=== PATIENT | male | born 1965 | race African-American/Black ===

== ENCOUNTER 2016-08-04 08:26 | Inpatient (IN) | payer OTHER ==
[2016-08-04 10:14] VITALS: BMI 29.0
--- NOTE | 2016-08-04 10:30 | HP ---
CIWA Score - CIWA Score Nausea/Vomitin Muscle Tremors: 3 Anxiety: 3 Agitation: 2 Paroxysmal Sweats: 1-Minimal Palms Moist Orientation: 0-Oriented Tacttile Disturbances: 2-Mild Itch/Numbness/Burn Auditory Disturbances: 2-Mild Harshness/Frighten Visual Disturbances: 2-Mild Sensitivity Headache: 2-Mild CIWA-Ar Total Score: 20 Admission ROS BHS - HPI Chief Complaint: i need help to stop drinking alcohol,cocaine and marijuana Allergies/Adverse Reactions: Allergies Allergy/AdvReac Type Severity Reaction Status Date / Time pork derived (porcine) Allergy Unknown Verified 08/04/16 10:23 No Known Drug Allergies Allergy Verified 08/04/16 10:23 History of Present Illness: this 51 years old male with alcohol,cocaine and marijuana,withdrawal symptom, last detox 06/03/16 to 06/07/16 [facility] syncope alcohol related hypertension non compliance bipolar disorder cardiomyopathy no significant period of sobriety Exam Limitations: No Limitations - Ebola screening Have you traveled outside of the country in the last 21 days: No Have you been sick,other than usual withdrawal symptoms: No - Review of Systems Constitutional: Loss of Appetite, Malaise, Night Sweats, Changes in sleep, Weakness EENT: reports: Nose Congestion Cardiac: reports: No Symptoms Reported GI: reports: Nausea, Poor Appetite, Abdominal cramping : reports: No Symptoms Reported Musculoskeletal: reports: Back Pain, Muscle Pain Integumentary: reports: Dryness Neuro: reports: Headache, Tremors Endocrine: reports: No Symptoms Reported Hematology: reports: No Symptoms Reported Psychiatric: reports: other (bipolar disorder) Patient History - Patient Medical History Hx Anemia: No Hx Asthma: No Hx Chronic Obstructive Pulmonary Disease (COPD): No Hx Cancer: No Hx Cardiac Disorders: No Hx Congestive Heart Failure: No Hx Hypertension: Yes (non compliance) Hx Hypercholesterolemia: No Hx Pacemaker: No HX Cerebrovascular Accident: No Hx Seizures: No Hx Dementia: No Hx Diabetes: No Hx Gastrointestinal Disorders: No Hx Liver Disease: No Hx Genitourinary Disorders: No Hx Sexually Transmitted Disorders: No Hx Renal Disease (ESRD): No Hx Thyroid Disease: No Hx Human Immunodeficiency Virus (HIV): No (negative 05/22 negative) Hx Hepatitis C: No Hx Depression: Yes (PTSD) Hx Suicide Attempt: Yes (2005 DRANK AMMONIA CHLORIDE) Hx Bipolar Disorder: Yes (on med; zoloft 100 mg; seroquel 600 mg HS) Hx Schizophrenia: No Other Medical History: no suicidal,no homicidal - Patient Surgical History Past Surgical History: No Hx Neurologic Surgery: No Hx Cataract Extraction: No Hx Cardiac Surgery: No Hx Lung Surgery: No Hx Breast Surgery: No Hx Breast Biopsy: No Hx Abdominal Surgery: No Hx Appendectomy: No Hx Cholecystectomy: No Hx Genitourinary Surgery: No Hx Section: No Hx Orthopedic Surgery: No Anesthesia Reaction: No - PPD History Previous Implant?: Yes Documented Results: Positive w/proof PPD to be Administered?: No - Smoking Cessation Smoking history: Current every day smoker Have you smoked in the past 12 months: No Aproximately how many cigarettes per day: 5 If you are a former smoker, when did you quit?: 07/22/13 Cigars Per Day: 0 Hx Chewing Tobacco Use: No Initiated information on smoking cessation: Yes 'Breaking Loose' booklet given: 08/04/16 - Substance & Tx. History Hx Alcohol Use: Yes Hx Substance Use: Yes Substance Use Type: Alcohol, Cocaine, Marijuana Hx Substance Use Treatment: Yes (06/03/16 to 06/07/16) - Substances Abused Alcohol Route: Oral Frequency: Daily Amount used: 1 AND 1/2 PINTS COGNAC Age of first use: 10 Date of Last Use: 08/04/16 Crack Route: Smoking Frequency: 3-6 times per week Amount used: $100 Age of first use: 43 Date of Last Use: 08/04/16 Marijuana/Hashish Route: Smoking Frequency: 3-6 times per week Amount used: 1 JOINT Age of first use: 17 Date of Last Use: 08/04/16 Family Disease History - Family Disease History Family Disease History: Diabetes: Mother (alcohol,HTN), Heart Disease: Mother, Sister (DRUGS,HTN), Other: Father (ALCOHOL,CANNABIS,), Mother, Sister Admission Physical Exam S - Vital Signs Vital Signs: Vital Signs - 24 hr 08/04/16 10:09 Temperature 96.4 F L Pulse Rate 79 Respiratory 18 Rate Blood Pressure 158/105 - Physical General Appearance: Yes: Moderate Distress, Tremorous, Irritable, Sweating, Anxious HEENTM: Yes: Nasal Congestion Respiratory: Yes: Lungs Clear Neck: Yes: Within Normal Limits Breast: Yes: Within Normal Limits Cardiology: Yes: Within Normal Limits, Regular Rhythm, Regular Rate, S1, S2 Abdominal: Yes: Within Normal Limits, Normal Bowel Sounds, Non Tender, Flat, Soft Genitourinary: Yes: Within Normal Limits Back: Yes: Muscle Spasm Extremities: Yes: Tremors Neurological: Yes: micro computer specialist II-XII NML intact, Fully Oriented, Alert, Motor Strength 5/5 Integumentary: Yes: Dry Lymphatic: Yes: Within Normal Limits - Diagnostic (1) Alcohol dependence with uncomplicated withdrawal Current Visit: Yes Status: Acute (2) Cannabis dependence Current Visit: No Status: Chronic (3) Cocaine dependence Current Visit: No Status: Chronic (4) Essential hypertension Current Visit: No Status: Chronic (5) Nicotine dependence Current Visit: No Status: Chronic Qualifiers: Nicotine product type: cigarettes Substance use status: uncomplicated Qualified Code(s): F17.210 - Nicotine dependence, cigarettes, uncomplicated (6) Schizoaffective disorder Current Visit: No Status: Chronic (7) Cardiomyopathy Current Visit: Yes Status: Acute (8) Positive PPD Current Visit: Yes Status: Acute Cleared for Admission [facility] - Detox or Rehab [facility] Level of Care: Medically Managed Detox Regimen/Protocol: Librium [facility] Breath Alcohol Content Breath Alcohol Content: 0.050 Urine Drug Screen - Results Drug Screen Negative: No Urine Drug Screen Results: THC-Marijuana, MELISA-Cocaine
[2016-08-04] MEDS ORDERED: MAGNESIUM HYDROX 2400MG/30ML ORAL SUSPENSION 30 ML CUP PO PRN (10:50)
[2016-08-04] MEDS ORDERED: MAGNESIUM CITRATE 300 ML BOTTLE PO PRN (10:50)
[2016-08-04] MEDS ORDERED: MAG HYDROX/AL HYDROX/SIMETH 30 ML UNIT-DOSE CUP PO PRN (10:50)
[2016-08-04] MEDS ORDERED: IBUPROFEN 400 MG TABLET (FP) PO PRN (10:50)
[2016-08-04] MEDS ORDERED: diphenhydrAMINE HCL 50 MG CAPSULE PO PRN (10:50)
[2016-08-04] MEDS ORDERED: chlordiazePOXIDE HCL 25 MG CAPSULE PO PRN (10:50)
[2016-08-04] MEDS ORDERED: hydrOXYzine PAMOATE 50 MG CAPSULE (FP) PO PRN (10:50)
[2016-08-04] MEDS ORDERED: guaiFENesin/D-METHORPHAN HB 10 ML UNIT-DOSE CUPS PO PRN (10:50)
[2016-08-04] MEDS ORDERED: ACETAMINOPHEN 325 MG TABLET (FP) PO PRN (10:50)
[2016-08-04] MEDS ORDERED: MENTHOL/PHENOL 1 EACH UD MM PRN (10:50)
[2016-08-04] MEDS ORDERED: LOPERAMIDE HCL 2 MG CAPSULE PO PRN (10:50)
[2016-08-04] MEDS ORDERED: P-EPHED 60MG/TRIPROLIDI 2.5MG TABLET PO PRN (10:50)
[2016-08-04] MEDS ORDERED: cloNIDine HCL 0.1 MG TABLET PO ONE (11:05)
[2016-08-04] MEDS ORDERED: chlordiazePOXIDE HCL 25 MG CAPSULE PO ONE (11:10)
[2016-08-04] MEDS: ASPIRIN 81 MG CHEWABLE TABLETS PO SCH (13:06)
[2016-08-04] MEDS: LISINOPRIL 20 MG TABLET (FP) PO SCH (13:07)
--- NOTE | 2016-08-04 13:42 | CONSULT ---
[facility] Psychiatric Consult - Data Date of interview: 08/04/16 Admission source: [facility] Identifying data: This is 51 years old male with psychiatric hospitalization hisatory, history of Schizoaffective disorder intoxicated with : Alcohol, Cocaine, Cannabis and Nicotine Substance Abuse History: - Smoking Cessation. Smoking history: Current every day smoker. Have you smoked in the past 12 months: No. Aproximately how many cigarettes per day: 5. If you are a former smoker, when did you quit?: . Cigars Per Day: 0. Hx Chewing Tobacco Use: No. Initiated information on smoking cessation: Yes. 'Breaking Loose' booklet given: 08/04/16. - Substance & Tx. History. Hx Alcohol Use: Yes. Hx Substance Use: Yes. Substance Use Type : Alcohol, Cocaine, Marijuana. Hx Substance Use Treatment: Yes (06/03/16 to 08/22). - Substances Abused. Alcohol. Route: Oral. Frequency: Daily. Amount used: 1 AND 1/2 PINTS COGNAC. Age of first use: 10. Date of Last Use: . Crack. Route: Smoking. Frequency: 3-6 times per week. Amount used : $100. Age of first use: 43. Date of Last Use: 08/04/16. Marijuana/ Hashish. Route: Smoking. Frequency: 3-6 times per week. Amount used: 1 JOINT. Age of first use: 17. Date of Last Use: 08/04/16 Medical History: Cardiomyopathy, HTN, Chest pain history Psychiatric History: Patient reports to carry Schizoaffective disorder, Bipolar disorder, PTSD, reports most recent psychiatric admission on about 2-3 years ago at [facility]. Patient reports taking prior to admission: Seroquel 300mg po qhs Physical/Sexual Abuse/Trauma History: Denies Additional Comment: Seroquel 300mg po qhs Mental Status Exam - Mental Status Exam Alert and Oriented to: Person Cognitive Function: Fair Patient Appearance: Well Groomed Mood: Suspicious Affect: Constricted Patient Behavior: Cooperative Speech Pattern: Appropriate Voice Loudness: Mildly Loud Thought Process: Circumstantial Thought Disorder: Being Controlled Hallucinations: Denies Suicidal Ideation: Denies Homicidal Ideation: Denies Insight/Judgement: Fair Sleep: Difficulty falling asleep Appetite: Weight gain Muscle strength/Tone: Normal Gait/Station: Normal Additional Comments: Seroquel 300mg po qhs Psychiatric Findings - Problem List ([place] 1, 2,3) (1) Alcohol dependence with uncomplicated withdrawal Current Visit: Yes Status: Acute (2) Alcohol dependence with withdrawal Current Visit: No Status: Chronic Qualifiers: Complication of substance-induced condition: uncomplicated Qualified Code(s): F10.230 - Alcohol dependence with withdrawal, uncomplicated (3) Bipolar disorder Current Visit: No Status: Chronic (4) Cannabis dependence Current Visit: No Status: Chronic (5) Cocaine dependence Current Visit: No Status: Chronic (6) Nicotine dependence Current Visit: No Status: Chronic Qualifiers: Nicotine product type: cigarettes Substance use status: uncomplicated Qualified Code(s): F17.210 - Nicotine dependence, cigarettes, uncomplicated (7) Schizoaffective disorder Current Visit: No Status: Chronic (8) ptsd Current Visit: No Status: Chronic - Initial Treatment Plan Initial Treatment Plan: Seroquel 300mg po qhs
[2016-08-04] MEDS: chlordiazePOXIDE HCL 25 MG CAPSULE PO SCH ×2 (17:29→22:16)
[2016-08-04] MEDS: QUEtiapine FUMARATE 300 MG TABLET PO SCH (22:16)
[2016-08-04] MEDS: THIAMINE HCL 100 MG TABLET (FP) PO SCH (22:16)
[2016-08-04 23:09] LABS: URINE APPEARANCE CLEAR; URINE BILIRUBIN NEGATIVE (NEGATIVE); URINE BLOOD NEGATIVE (NEGATIVE); URINE COLOR LTYELLOW; URINE GLUCOSE (UA) NEGATIVE (NEGATIVE); URINE KETONE NEGATIVE (NEGATIVE); URINE LEUK ESTERASE NEGATIVE (NEGATIVE); URINE NITRITE NEGATIVE (NEGATIVE); URINE PROTEIN NEGATIVE (NEGATIVE); URINE UROBILINOGEN NEGATIVE E.U./dl (0.2-1.0)
[2016-08-05] MEDS: chlordiazePOXIDE HCL 25 MG CAPSULE PO SCH ×4 (05:43→22:01)
--- NOTE | 2016-08-05 09:42 | PN ---
[facility] CIWA - CIWA Score Nausea/Vomitin-No Nausea/No Vomiting Muscle Tremors: 4-Moderate,w/Arms Extend Anxiety: 4-Mod. Anxious/Guarded Agitation: 3 Paroxysmal Sweats: 3 Orientation: 0-Oriented Tacttile Disturbances: 0-None Auditory Disturbances: 0-None Visual Disturbances: 0-None Headache: 0-None Present CIWA-Ar Total Score: 14 BHS Progress Note (SOAP) Subjective: ANXIETY,TREMORS,SWEATING,INTERRUPTED SLEEP,RESTLESS. Objective: 08/05/16 09:42 Vital Signs - 8 hr 08/05/16 08/05/16 03:24 06:13 Temperature 98.2 F Pulse Rate 59 L Respiratory 18 18 Rate Blood Pressure 148/97 Laboratory Last Values Urine Color Ltyellow 08/04/16 14:00 Urine Appearance Clear 08/04/16 14:00 Urine pH 6.0 (5.0-8.0) 08/04/16 14:00 Ur Specific [place] 1.016 (1.001-1.035) 08/04/16 14:00 Urine Protein Negative (NEGATIVE) 08/04/16 14:00 Urine Glucose (UA) Negative (NEGATIVE) 08/04/16 14:00 Urine Ketones Negative (NEGATIVE) 08/04/16 14:00 Urine Blood Negative (NEGATIVE) 08/04/16 14:00 Urine Nitrite Negative (NEGATIVE) 08/04/16 14:00 Urine Bilirubin Negative (NEGATIVE) 08/04/16 14:00 Urine Urobilinogen Negative E.U./dl (0.2-1.0) 08/04/16 14:00 Ur Leukocyte Esterase Negative (NEGATIVE) 08/04/16 14:00 LABS NOTED Assessment: 08/05/16 09:42 WITHDRAWAL SX. Plan: CONTINUE DETOX
[2016-08-05] MEDS: ASPIRIN 81 MG CHEWABLE TABLETS PO SCH (10:09)
[2016-08-05] MEDS: PRENATAL VITAMINS W/ FOLIC ACID TABLET (FP) PO SCH (10:09)
[2016-08-05] MEDS: LISINOPRIL 20 MG TABLET (FP) PO SCH (10:09)
[2016-08-05 10:31] LABS: HIV 1 & 2 AB NEGATIVE; HIV 1 AGp24 NEGATIVE
[2016-08-05 10:58] LABS: MCHC 32.4 g/dl (32.0-35.9); MEAN CELL VOLUME 89.4 fl (80-96); MEAN PLT VOLUME 10.5 fl (7.5-11.1); PLATELET COUNT 145 K/MM3 (134-434); RDW 13.4 % (11.9-15.9); WHITE BLOOD COUNT 4.2 K/mm3 (4.0-10.0)
[2016-08-05 11:30] LABS: ALBUMIN 4.3 g/dl (3.4-5.0); ALK PHOS 63 U/L (45-117); ANION GAP 12 (8-16); BILIRUBIN,TOTAL 0.4 mg/dL (0.2-1.0); CALCIUM 9.4 mg/dL (8.5-10.1); CO2 25 mmol/L (21-32); GLUCOSE,RANDOM 88 mg/dL (74-106); SGOT/AST 17 U/L (15-37); SGPT/ALT 26 U/L (12-78); TOT PROT 7.9 g/dl (6.4-8.2)
[2016-08-05] MEDS: ARTIFICIAL TEARS (POLYVINYL ALCOHOL 1.4%) OPTH DROPS OU SCH ×2 (13:21→22:00)
--- NOTE | 2016-08-05 19:17 | PN ---
BHS Progress Note Note: K+ 3.4 POTASSIUM 20 MEQ SOLUTION SUPPLEMENT BID REPEAT ELECTROLYTES 08/07/16 CONTINUE DETOX
[2016-08-05] MEDS: QUEtiapine FUMARATE 300 MG TABLET PO SCH (22:01)
[2016-08-05] MEDS: THIAMINE HCL 100 MG TABLET (FP) PO SCH (22:01)
[2016-08-05] MEDS: POTASSIUM CHLORIDE 40 MEQ/30 ML UNIT DOSE CUP PO SCH (22:51)
[2016-08-06] MEDS: chlordiazePOXIDE HCL 25 MG CAPSULE PO SCH ×2 (05:35→10:15)
[2016-08-06] MEDS: ASPIRIN 81 MG CHEWABLE TABLETS PO SCH (10:15)
[2016-08-06] MEDS: ARTIFICIAL TEARS (POLYVINYL ALCOHOL 1.4%) OPTH DROPS OU SCH ×2 (10:15→22:07)
[2016-08-06] MEDS: LISINOPRIL 20 MG TABLET (FP) PO SCH (10:15)
[2016-08-06] MEDS: PRENATAL VITAMINS W/ FOLIC ACID TABLET (FP) PO SCH (10:15)
[2016-08-06] MEDS: POTASSIUM CHLORIDE 40 MEQ/30 ML UNIT DOSE CUP PO SCH (10:16)
--- NOTE | 2016-08-06 11:40 | PN ---
[facility] CIWA - CIWA Score Nausea/Vomitin-No Nausea/No Vomiting Muscle Tremors: 3 Anxiety: 4-Mod. Anxious/Guarded Agitation: 4-Moderately Restless Paroxysmal Sweats: 3 Orientation: 0-Oriented Tacttile Disturbances: 0-None Auditory Disturbances: 0-None Visual Disturbances: 0-None Headache: 0-None Present CIWA-Ar Total Score: 14 BHS Progress Note (SOAP) Subjective: ANXIETY,TREMORS,SWEATING,INTERRUPTED SLEEP,RESTLESS. Objective: 08/06/16 11:39 Vital Signs - 8 hr 08/06/16 08/06/16 06:02 09:47 Temperature 98.3 F 98.8 F Pulse Rate 66 65 Respiratory 18 18 Rate Blood Pressure 142/92 148/92 Laboratory Last Values WBC 4.2 K/mm3 (4.0-10.0) 08/05/16 06:00 RBC 5.42 M/mm3 (4.00-5.60) 08/05/16 06:00 Hgb 15.7 GM/dL (11.7-16.9) D 08/05/16 06:00 Hct 48.4 % (35.4-49) 08/05/16 06:00 MCV 89.4 fl (80-96) 08/05/16 06:00 MCHC 32.4 g/dl (32.0-35.9) 08/05/16 06:00 RDW 13.4 % (11.9-15.9) 08/05/16 06:00 Plt Count 145 K/MM3 (134-434) 08/05/16 06:00 MPV 10.5 fl (7.5-11.1) D 08/05/16 06:00 Sodium 143 mmol/L (136-145) 08/05/16 06:00 Potassium 3.4 mmol/L (3.5-5.1) L 08/05/16 06:00 Chloride 106 mmol/L (98-107) 08/05/16 06:00 Carbon Dioxide 25 mmol/L (21-32) 08/05/16 06:00 Anion Gap 12 (8-16) 08/05/16 06:00 BUN 8 mg/dL (7-18) D 08/05/16 06:00 Creatinine 1.0 mg/dL (0.7-1.3) 08/05/16 06:00 Creat Clearance w eGFR > 60 (>60) 08/05/16 06:00 Random Glucose 88 mg/dL (74-106) 08/05/16 06:00 Calcium 9.4 mg/dL (8.5-10.1) 08/05/16 06:00 Total Bilirubin 0.4 mg/dL (0.2-1.0) D 08/05/16 06:00 AST 17 U/L (15-37) 08/05/16 06:00 ALT 26 U/L (12-78) 08/05/16 06:00 Alkaline Phosphatase 63 U/L (45-117) D 08/05/16 06:00 Total Protein 7.9 g/dl (6.4-8.2) D 08/05/16 06:00 Albumin 4.3 g/dl (3.4-5.0) D 08/05/16 06:00 Urine Color Ltyellow 08/04/16 14:00 Urine Appearance Clear 08/04/16 14:00 Urine pH 6.0 (5.0-8.0) 08/04/16 14:00 Ur Specific [place] 1.016 (1.001-1.035) 08/04/16 14:00 Urine Protein Negative (NEGATIVE) 08/04/16 14:00 Urine Glucose (UA) Negative (NEGATIVE) 08/04/16 14:00 Urine Ketones Negative (NEGATIVE) 08/04/16 14:00 Urine Blood Negative (NEGATIVE) 08/04/16 14:00 Urine Nitrite Negative (NEGATIVE) 08/04/16 14:00 Urine Bilirubin Negative (NEGATIVE) 08/04/16 14:00 Urine Urobilinogen Negative E.U./dl (0.2-1.0) 08/04/16 14:00 Ur Leukocyte Esterase Negative (NEGATIVE) 08/04/16 14:00 RPR Titer Nonreactive (NONREACTIVE) 08/05/16 06:00 HIV 1&2 Antibody Screen Negative 08/04/16 10:40 HIV P24 Antigen Negative 08/04/16 10:40 LABS NOTED Assessment: 08/06/16 11:39 WITHDRAWAL SX. Plan: CONTINUE DETOX
[2016-08-06] MEDS: NEO/POLYMYX B SULF/DEXAMETH OPHTHALMIC OINTMENT 3.5 GM OD SCH ×2 (14:28→22:06)
[2016-08-06] MEDS: chlordiazePOXIDE 5 MG CAPSULE PO SCH ×2 (17:45→22:08)
[2016-08-06] MEDS ORDERED: QUEtiapine FUMARATE 100 MG TABLET (FP) ONE (20:50)
[2016-08-06] MEDS: QUEtiapine FUMARATE 300 MG TABLET PO SCH (22:08)
[2016-08-06] MEDS: THIAMINE HCL 100 MG TABLET (FP) PO SCH (22:08)
[2016-08-06] MEDS: POTASSIUM CHLORIDE TABS 20 MEQ TABLET.ER (FP) PO SCH (22:49)
[2016-08-07] MEDS: chlordiazePOXIDE 5 MG CAPSULE PO SCH ×2 (05:22→10:11)
[2016-08-07] MEDS: ASPIRIN 81 MG CHEWABLE TABLETS PO SCH (10:12)
[2016-08-07] MEDS: PRENATAL VITAMINS W/ FOLIC ACID TABLET (FP) PO SCH (10:12)
[2016-08-07] MEDS: POTASSIUM CHLORIDE TABS 20 MEQ TABLET.ER (FP) PO SCH ×2 (10:12→22:07)
[2016-08-07] MEDS: LISINOPRIL 20 MG TABLET (FP) PO SCH (10:12)
[2016-08-07] MEDS: ARTIFICIAL TEARS (POLYVINYL ALCOHOL 1.4%) OPTH DROPS OU SCH ×2 (10:12→22:07)
[2016-08-07] MEDS: NEO/POLYMYX B SULF/DEXAMETH OPHTHALMIC OINTMENT 3.5 GM OD SCH ×2 (10:13→22:08)
--- NOTE | 2016-08-07 13:28 | PN ---
BHS Progress Note (SOAP) Subjective: Diarrhea, Sweating, Body Aches, Interrupted Sleep. Objective: 08/07/16 13:26 Vital Signs Temperature 98.1 F 08/07/16 13:04 Pulse Rate 75 08/07/16 13:04 Respiratory Rate 18 08/07/16 13:04 Blood Pressure 146/89 08/07/16 13:04 O2 Sat by Pulse Oximetry (%) Laboratory Last Values WBC 4.2 K/mm3 (4.0-10.0) 08/05/16 06:00 RBC 5.42 M/mm3 (4.00-5.60) 08/05/16 06:00 Hgb 15.7 GM/dL (11.7-16.9) D 08/05/16 06:00 Hct 48.4 % (35.4-49) 08/05/16 06:00 MCV 89.4 fl (80-96) 08/05/16 06:00 MCHC 32.4 g/dl (32.0-35.9) 08/05/16 06:00 RDW 13.4 % (11.9-15.9) 08/05/16 06:00 Plt Count 145 K/MM3 (134-434) 08/05/16 06:00 MPV 10.5 fl (7.5-11.1) D 08/05/16 06:00 Sodium 143 mmol/L (136-145) 08/05/16 06:00 Potassium 3.4 mmol/L (3.5-5.1) L 08/05/16 06:00 Chloride 106 mmol/L (98-107) 08/05/16 06:00 Carbon Dioxide 25 mmol/L (21-32) 08/05/16 06:00 Anion Gap 12 (8-16) 08/05/16 06:00 BUN 8 mg/dL (7-18) D 08/05/16 06:00 Creatinine 1.0 mg/dL (0.7-1.3) 08/05/16 06:00 Creat Clearance w eGFR > 60 (>60) 08/05/16 06:00 Random Glucose 88 mg/dL (74-106) 08/05/16 06:00 Calcium 9.4 mg/dL (8.5-10.1) 08/05/16 06:00 Total Bilirubin 0.4 mg/dL (0.2-1.0) D 08/05/16 06:00 AST 17 U/L (15-37) 08/05/16 06:00 ALT 26 U/L (12-78) 08/05/16 06:00 Alkaline Phosphatase 63 U/L (45-117) D 08/05/16 06:00 Total Protein 7.9 g/dl (6.4-8.2) D 08/05/16 06:00 Albumin 4.3 g/dl (3.4-5.0) D 08/05/16 06:00 Urine Color Ltyellow 08/04/16 14:00 Urine Appearance Clear 08/04/16 14:00 Urine pH 6.0 (5.0-8.0) 08/04/16 14:00 Ur Specific [place] 1.016 (1.001-1.035) 08/04/16 14:00 Urine Protein Negative (NEGATIVE) 08/04/16 14:00 Urine Glucose (UA) Negative (NEGATIVE) 08/04/16 14:00 Urine Ketones Negative (NEGATIVE) 08/04/16 14:00 Urine Blood Negative (NEGATIVE) 08/04/16 14:00 Urine Nitrite Negative (NEGATIVE) 08/04/16 14:00 Urine Bilirubin Negative (NEGATIVE) 08/04/16 14:00 Urine Urobilinogen Negative E.U./dl (0.2-1.0) 08/04/16 14:00 Ur Leukocyte Esterase Negative (NEGATIVE) 08/04/16 14:00 RPR Titer Nonreactive (NONREACTIVE) 08/05/16 06:00 HIV 1&2 Antibody Screen Negative 08/04/16 10:40 HIV P24 Antigen Negative 08/04/16 10:40 LABS NOTED. Assessment: 08/07/16 13:26 WITHDRAWAL SYMPTOMS. Plan: CONTINUE DETOX. REPEAT K LEVEL. RECOMMENDED PRN IMMODIUM FOR DIARRHEA.
[2016-08-07] MEDS: chlordiazePOXIDE HCL 10 MG CAPSULE PO SCH ×2 (17:36→22:07)
[2016-08-07] MEDS: THIAMINE HCL 100 MG TABLET (FP) PO SCH (22:07)
[2016-08-07] MEDS: QUEtiapine FUMARATE 300 MG TABLET PO SCH (22:07)
[2016-08-08] MEDS: chlordiazePOXIDE HCL 10 MG CAPSULE PO SCH ×2 (05:39→10:10)
[2016-08-08] MEDS: POTASSIUM CHLORIDE 40 MEQ/30 ML UNIT DOSE CUP PO SCH (09:43)
[2016-08-08] MEDS ORDERED: POTASSIUM CHLORIDE TABS 20 MEQ TABLET.ER (FP) PO SCH (10:02)
[2016-08-08] MEDS: ARTIFICIAL TEARS (POLYVINYL ALCOHOL 1.4%) OPTH DROPS OU SCH ×2 (10:09→22:05)
[2016-08-08] MEDS: PRENATAL VITAMINS W/ FOLIC ACID TABLET (FP) PO SCH (10:09)
[2016-08-08] MEDS: NEO/POLYMYX B SULF/DEXAMETH OPHTHALMIC OINTMENT 3.5 GM OD SCH ×2 (10:09→22:06)
[2016-08-08] MEDS: ASPIRIN 81 MG CHEWABLE TABLETS PO SCH (10:10)
[2016-08-08] MEDS: LISINOPRIL 20 MG TABLET (FP) PO SCH (10:10)
--- NOTE | 2016-08-08 10:27 | PN ---
BHS Progress Note (SOAP) Subjective: SWEATING,INTERRUPTED SLEEP Objective: 08/08/16 10:25 Vital Signs - 8 hr 08/08/16 08/08/16 08/08/16 03:30 06:11 10:15 Temperature 96.7 F L 96.7 F L Pulse Rate 64 75 Respiratory 20 18 16 Rate Blood Pressure 141/97 135/88 Laboratory Last Values WBC 4.2 K/mm3 (4.0-10.0) 08/05/16 06:00 RBC 5.42 M/mm3 (4.00-5.60) 08/05/16 06:00 Hgb 15.7 GM/dL (11.7-16.9) D 08/05/16 06:00 Hct 48.4 % (35.4-49) 08/05/16 06:00 MCV 89.4 fl (80-96) 08/05/16 06:00 MCHC 32.4 g/dl (32.0-35.9) 08/05/16 06:00 RDW 13.4 % (11.9-15.9) 08/05/16 06:00 Plt Count 145 K/MM3 (134-434) 08/05/16 06:00 MPV 10.5 fl (7.5-11.1) D 08/05/16 06:00 Sodium 143 mmol/L (136-145) 08/05/16 06:00 Potassium 3.4 mmol/L (3.5-5.1) L 08/05/16 06:00 Chloride 106 mmol/L (98-107) 08/05/16 06:00 Carbon Dioxide 25 mmol/L (21-32) 08/05/16 06:00 Anion Gap 12 (8-16) 08/05/16 06:00 BUN 8 mg/dL (7-18) D 08/05/16 06:00 Creatinine 1.0 mg/dL (0.7-1.3) 08/05/16 06:00 Creat Clearance w eGFR > 60 (>60) 08/05/16 06:00 Random Glucose 88 mg/dL (74-106) 08/05/16 06:00 Calcium 9.4 mg/dL (8.5-10.1) 08/05/16 06:00 Total Bilirubin 0.4 mg/dL (0.2-1.0) D 08/05/16 06:00 AST 17 U/L (15-37) 08/05/16 06:00 ALT 26 U/L (12-78) 08/05/16 06:00 Alkaline Phosphatase 63 U/L (45-117) D 08/05/16 06:00 Total Protein 7.9 g/dl (6.4-8.2) D 08/05/16 06:00 Albumin 4.3 g/dl (3.4-5.0) D 08/05/16 06:00 Urine Color Ltyellow 08/04/16 14:00 Urine Appearance Clear 08/04/16 14:00 Urine pH 6.0 (5.0-8.0) 08/04/16 14:00 Ur Specific [place] 1.016 (1.001-1.035) 08/04/16 14:00 Urine Protein Negative (NEGATIVE) 08/04/16 14:00 Urine Glucose (UA) Negative (NEGATIVE) 08/04/16 14:00 Urine Ketones Negative (NEGATIVE) 08/04/16 14:00 Urine Blood Negative (NEGATIVE) 08/04/16 14:00 Urine Nitrite Negative (NEGATIVE) 08/04/16 14:00 Urine Bilirubin Negative (NEGATIVE) 08/04/16 14:00 Urine Urobilinogen Negative E.U./dl (0.2-1.0) 08/04/16 14:00 Ur Leukocyte Esterase Negative (NEGATIVE) 08/04/16 14:00 RPR Titer Nonreactive (NONREACTIVE) 08/05/16 06:00 HIV 1&2 Antibody Screen Negative 08/04/16 10:40 HIV P24 Antigen Negative 08/04/16 10:40 LABS NOTED K 3.4,REPLACEMENT GIVEN Assessment: 08/08/16 10:26 WITHDRAWAL SX. HYPOKALEMIA Plan: CONTINUE DETOX
[2016-08-08] MEDS: POTASSIUM CHLORIDE TABS 20 MEQ TABLET.ER (FP) PO SCH ×3 (11:01→17:49)
[2016-08-08] MEDS: THIAMINE HCL 100 MG TABLET (FP) PO SCH (22:06)
[2016-08-08] MEDS: QUEtiapine FUMARATE 300 MG TABLET PO SCH (22:06)
[2016-08-08 22:55] LABS: URINE APPEARANCE CLEAR; URINE BILIRUBIN NEGATIVE (NEGATIVE); URINE BLOOD NEGATIVE (NEGATIVE); URINE COLOR STRAW; URINE GLUCOSE (UA) NEGATIVE (NEGATIVE); URINE KETONE NEGATIVE (NEGATIVE); URINE LEUK ESTERASE NEGATIVE (NEGATIVE); URINE NITRITE NEGATIVE (NEGATIVE); URINE PROTEIN NEGATIVE (NEGATIVE); URINE UROBILINOGEN NEGATIVE E.U./dl (0.2-1.0)
[2016-08-09 06:34] VITALS: BP 137/92; PULSE 68; TEMP 97.1
--- NOTE | 2016-08-09 08:08 | PN ---
S Progress Note (SOAP) Subjective: ALERT,NO COMPLAINT Objective: 08/09/16 08:07 Vital Signs Temperature 97.1 F L 08/09/16 06:33 Pulse Rate 68 08/09/16 06:33 Respiratory Rate 18 08/09/16 06:33 Blood Pressure 137/92 08/09/16 06:33 O2 Sat by Pulse Oximetry (%) Assessment: 08/09/16 08:07 DETOX COMPLETED,NO WITHDRAWAL SYMPTOM Plan: DISCHARGE TODAY,FOLLOW UP WITH AFTER CARE PROGRAM ARRANGEMENT
--- NOTE | 2016-08-09 08:11 | DS ---
[facility] Detox Discharge Summary Admission Date: 08/04/16 Discharge Date: 08/09/16 - History Present History: Alcohol Dependence, Cannabis Dependence, Cocaine Dependence Additional Comments: FOLLOW UP WITH AFTER CARE PROGRAM ARRANGEMENT AND PMD FOR MEDICAL PROBLEM Pertinent Past History: CARDIOMYOPATHY POSTIVE PPD - Physical Exam Results Vital Signs: Vital Signs Temperature 97.1 F L 08/09/16 06:33 Pulse Rate 68 08/09/16 06:33 Respiratory Rate 18 08/09/16 06:33 Blood Pressure 137/92 08/09/16 06:33 O2 Sat by Pulse Oximetry (%) Pertinent Admission Physical Exam Findings: WITHDRAWAL SYMPTOM - Treatment Hospital Course: Detox Protocol Followed, Detoxed Safely, Responded well, Discharged Condition Good Patient has Accepted a Rehab Referral to: [facility] - Medication Discharge Medications: Ambulatory Orders Aspirin [ASA -] 81 mg PO DAILY #30 tab.chew 01/15/14 Lisinopril [Prinivil] 20 mg PO DAILY #30 tablet 01/15/14 Quetiapine Fumarate [Seroquel -] 300 mg PO HS #30 tab 06/04/16 Quetiapine Fumarate [Seroquel -] 300 mg PO HS #30 tab 08/04/16 - Diagnosis (1) Alcohol dependence with uncomplicated withdrawal Status: Acute (2) Cannabis dependence Status: Chronic (3) Cocaine dependence Status: Chronic (4) Essential hypertension Status: Chronic (5) Nicotine dependence Status: Chronic Qualifiers: Nicotine product type: cigarettes Substance use status: uncomplicated Qualified Code(s): F17.210 - Nicotine dependence, cigarettes, uncomplicated (6) Schizoaffective disorder Status: Chronic (7) Cardiomyopathy Status: Acute (8) Positive PPD Status: Acute
== END 2016-08-09 06:44 | disposition home or self-care (01) | DRG 897 ==
LOC: YASAS 08:26 → Y3N 10:46
PROVIDERS: ADMIT Internal Medicine; ATTEND Internal Medicine
PROC: HZ2ZZZZ Detoxification Services for Substance Abuse Treatment (ICD-10-PCS; principal; 2016-08-04)
DX: F10.230 Alcohol dependence with withdrawal, uncomplicated (principal); F14.20 Cocaine dependence, uncomplicated; I42.9 Cardiomyopathy, unspecified; F12.20 Cannabis dependence, uncomplicated; F17.210 Nicotine dependence, cigarettes, uncomplicated; F25.9 Schizoaffective disorder, unspecified; F31.9 Bipolar disorder, unspecified; F43.10 Post-traumatic stress disorder, unspecified; I10 Essential (primary) hypertension; R76.11 Nonspecific reaction to tuberculin skin test without active tuberculosis; E87.6 Hypokalemia; Z91.5 Personal history of self-harm
CPT/HCPCS: 36415; 80051; 80053; 81003; 85027; 86593; 87389; 93005; 93010

== ENCOUNTER 2016-09-22 12:59 | Inpatient (IN) | payer OTHER ==
[2016-09-22 13:20] VITALS: BMI 29.5
--- NOTE | 2016-09-22 16:24 | HP ---
CIWA Score - CIWA Score Nausea/Vomitin Muscle Tremors: 2 Anxiety: 3 Agitation: 3 Paroxysmal Sweats: 3 Orientation: 0-Oriented Tacttile Disturbances: 2-Mild Itch/Numbness/Burn Auditory Disturbances: 0-None Visual Disturbances: 0-None Headache: 0-None Present CIWA-Ar Total Score: 15 Admission ROS BHS - HPI Chief Complaint: I dick help to stop drinking and using crack Allergies/Adverse Reactions: Allergies Allergy/AdvReac Type Severity Reaction Status Date / Time No Known Drug Allergies Allergy Verified 09/22/16 15:07 pork derived (porcine) AdvReac Severe diarrhea Verified 09/22/16 15:07 History of Present Illness: 51 y/o m pt with a h/o chronic alcoholism and crack abuse seeking detox. Exam Limitations: No Limitations - Ebola screening Have you traveled outside of the country in the last 21 days: Yes Have you had contact with anyone from an Ebola affected area: No Have you been sick,other than usual withdrawal symptoms: No Do you have a fever: No - Review of Systems Constitutional: Unintentional Wgt. Loss (10 lbs x 6 months) EENT: reports: Blurred Vision Respiratory: reports: No Symptoms reported Cardiac: reports: Other (r/o enlarged heart) GI: reports: No Symptoms Reported, Nausea : reports: No Symptoms Reported Musculoskeletal: reports: Back Pain, Joint Pain, Muscle Pain, Joint Stiffness Integumentary: reports: No Symptoms Reported Neuro: reports: Numbness, Tremors Endocrine: reports: No Symptoms Reported Hematology: reports: No Symptoms Reported Psychiatric: reports: Anxious, Depressed Other Systems: Reviewed and Negative Patient History - Patient Medical History Hx Anemia: No Hx Asthma: No Hx Chronic Obstructive Pulmonary Disease (COPD): No Hx Cancer: No Hx Cardiac Disorders: Yes Hx Congestive Heart Failure: No Hx Hypertension: Yes Hx Hypercholesterolemia: No Hx Pacemaker: No HX Cerebrovascular Accident: No Hx Seizures: No Hx Dementia: No Hx Diabetes: No Hx Gastrointestinal Disorders: No Hx Liver Disease: No Hx Genitourinary Disorders: No Hx Sexually Transmitted Disorders: No Hx Renal Disease (ESRD): No Hx Thyroid Disease: No Hx Human Immunodeficiency Virus (HIV): No (negative 05/22 negative) Hx Hepatitis C: No Hx Depression: Yes Hx Suicide Attempt: No Hx Bipolar Disorder: Yes (on med; zoloft 100 mg; seroquel 600 mg HS) Hx Schizophrenia: No - Patient Surgical History Past Surgical History: No Hx Neurologic Surgery: No Hx Cataract Extraction: No Hx Cardiac Surgery: No Hx Lung Surgery: No Hx Breast Surgery: No Hx Breast Biopsy: No Hx Abdominal Surgery: No Hx Appendectomy: No Hx Cholecystectomy: No Hx Genitourinary Surgery: No Hx Section: No Hx Orthopedic Surgery: No Anesthesia Reaction: No - PPD History Previous Implant?: Yes Documented Results: Positive w/proof Implanted On Prior R Admission?: No Date: 06/04/16 (neg cxr) Results: 0 mm PPD to be Administered?: No - Reproductive History Patient is a Female of Child Bearing Age (11 -55 yrs old): No - Smoking Cessation Smoking history: Current every day smoker Have you smoked in the past 12 months: No Aproximately how many cigarettes per day: 2 If you are a former smoker, when did you quit?: 07/22/13 Cigars Per Day: 0 Hx Chewing Tobacco Use: No Initiated information on smoking cessation: Yes 'Breaking Loose' booklet given: 09/22/16 - Substance & Tx. History Hx Alcohol Use: Yes Substance Use Type: Alcohol, Cocaine, Marijuana - Substances Abused Crack Route: Smoking Frequency: 3-6 times per week Amount used: $100-200 Age of first use: 43 Date of Last Use: 09/22/16 Alcohol-vodka/beer Route: Oral Frequency: 3-6 times per week Amount used: 1-2 pts./1-6 pk. Age of first use: 10 Date of Last Use: 09/22/16 Family Disease History - Family Disease History Family Disease History: Diabetes: Mother (alcohol,HTN), Heart Disease: Mother, Sister (DRUGS,HTN), Other: Father (ALCOHOL,CANNABIS,), Mother, Sister Admission Physical Exam BHS - Vital Signs Vital Signs: Vital Signs - 24 hr 09/22/16 13:16 Temperature 97.6 F Pulse Rate 69 Respiratory 18 Rate Blood Pressure 148/98 - Physical General Appearance: Yes: Appropriately Dressed, Anxious HEENTM: Yes: EOMI, Hearing grossly Normal, Normocephalic, Normal Voice, CELIA Respiratory: Yes: Chest Non-Tender, Lungs Clear, Normal Breath Sounds, No Respiratory Distress Neck: Yes: No masses,lesions,Nodules, Supple, Trachea in good position Breast: Yes: Within Normal Limits Cardiology: Yes: Regular Rhythm, Regular Rate, S1, S2 Abdominal: Yes: Non Tender, Flat, Soft, Increased Bowel Sounds Genitourinary: Yes: Frequency Back: Yes: Decreased Range of Motion Musculoskeletal: Yes: Back pain, Muscle Pain Extremities: Yes: Within Normal Limits Neurological: Yes: prototype machinist II-XII NML intact, Fully Oriented, Alert, Motor Strength 5/5, Normal Response Integumentary: Yes: Moist Lymphatic: Yes: Within Normal Limits - Diagnostic (1) Alcohol dependence with uncomplicated withdrawal Current Visit: Yes Status: Chronic (2) Positive PPD Current Visit: Yes Status: Chronic (3) Bipolar disorder Current Visit: Yes Status: Chronic (4) Cannabis dependence Current Visit: Yes Status: Chronic (5) Cocaine dependence Current Visit: Yes Status: Chronic (6) Essential hypertension Current Visit: Yes Status: Chronic (7) Nicotine dependence Current Visit: Yes Status: Chronic Qualifiers: Nicotine product type: cigarettes Substance use status: uncomplicated Qualified Code(s): F17.210 - Nicotine dependence, cigarettes, uncomplicated (8) Depression (emotion) Current Visit: Yes Status: Chronic Qualifiers: Depression Type: unspecified Qualified Code(s): F32.9 - Major depressive disorder, single episode, unspecified Cleared for Admission S - Detox or Rehab [facility] Level of Care: Medically Managed Detox Regimen/Protocol: Librium [facility] Breath Alcohol Content Breath Alcohol Content: 0 Urine Drug Screen - Results Drug Screen Negative: No Urine Drug Screen Results: THC-Marijuana, MELISA-Cocaine
[2016-09-22] MEDS ORDERED: P-EPHED 60MG/TRIPROLIDI 2.5MG TABLET PO PRN (16:34)
[2016-09-22] MEDS ORDERED: MAGNESIUM CITRATE 300 ML BOTTLE PO PRN (16:34)
[2016-09-22] MEDS ORDERED: ACETAMINOPHEN 325 MG TABLET (FP) PO PRN (16:34)
[2016-09-22] MEDS ORDERED: diphenhydrAMINE HCL 50 MG CAPSULE PO PRN (16:34)
[2016-09-22] MEDS ORDERED: guaiFENesin/D-METHORPHAN HB 10 ML UNIT-DOSE CUPS PO PRN (16:34)
[2016-09-22] MEDS ORDERED: MAGNESIUM HYDROX 2400MG/30ML ORAL SUSPENSION 30 ML CUP PO PRN (16:34)
[2016-09-22] MEDS ORDERED: LOPERAMIDE HCL 2 MG CAPSULE PO PRN (16:34)
[2016-09-22] MEDS ORDERED: hydrOXYzine PAMOATE 25 MG CAPSULE (FP) PO PRN (16:34)
[2016-09-22] MEDS ORDERED: NICOTINE POLACRILEX 2 MG GUM BC PRN (16:34)
[2016-09-22] MEDS ORDERED: IBUPROFEN 400 MG TABLET (FP) PO PRN (16:34)
[2016-09-22] MEDS ORDERED: MENTHOL/PHENOL 1 EACH UD MM PRN (16:34)
[2016-09-22] MEDS ORDERED: MAG HYDROX/AL HYDROX/SIMETH 30 ML UNIT-DOSE CUP PO PRN (16:34)
[2016-09-22] MEDS ORDERED: chlordiazePOXIDE HCL 25 MG CAPSULE PO PRN (16:34)
[2016-09-22] MEDS: chlordiazePOXIDE HCL 25 MG CAPSULE PO SCH ×2 (18:21→22:10)
[2016-09-22] MEDS: THIAMINE HCL 100 MG TABLET (FP) PO SCH (22:10)
[2016-09-22 23:41] LABS: URINE APPEARANCE CLEAR; URINE BILIRUBIN NEGATIVE (NEGATIVE); URINE BLOOD NEGATIVE (NEGATIVE); URINE COLOR YELLOW; URINE GLUCOSE (UA) NEGATIVE (NEGATIVE); URINE KETONE NEGATIVE (NEGATIVE); URINE LEUK ESTERASE NEGATIVE (NEGATIVE); URINE NITRITE NEGATIVE (NEGATIVE); URINE PROTEIN NEGATIVE (NEGATIVE); URINE UROBILINOGEN NEGATIVE E.U./dl (0.2-1.0)
[2016-09-23] MEDS: chlordiazePOXIDE HCL 25 MG CAPSULE PO SCH ×4 (05:39→22:24)
[2016-09-23 10:08] LABS: ALBUMIN 3.3 g/dl (3.4-5.0); ANION GAP 8 (8-16); CALCIUM 8.6 mg/dL (8.5-10.1); CO2 29 mmol/L (21-32); GLUCOSE,RANDOM 87 mg/dL (74-106)
[2016-09-23 10:13] LABS: ALK PHOS 53 U/L (45-117); BILIRUBIN,TOTAL 0.4 mg/dL (0.2-1.0); SGOT/AST 17 U/L (15-37); SGPT/ALT 24 U/L (12-78); TOT PROT 6.1 g/dl (6.4-8.2)
[2016-09-23 10:24] LABS: MCH 28.9 pg (25.7-33.7); MCHC 32.4 g/dl (32.0-35.9); MEAN CELL VOLUME 89.2 fl (80-96); MEAN PLT VOLUME 9.8 fl (7.5-11.1); PLATELET COUNT 159 K/MM3 (134-434); RDW 13.7 % (11.9-15.9); WHITE BLOOD COUNT 4.7 K/mm3 (4.0-10.0)
[2016-09-23] MEDS: PRENATAL VITAMINS W/ FOLIC ACID TABLET (FP) PO SCH (10:50)
[2016-09-23] MEDS: ASPIRIN COATED 81 MG TABLET.EC PO SCH (10:50)
[2016-09-23] MEDS: LISINOPRIL 20 MG TABLET (FP) PO SCH (10:50)
--- NOTE | 2016-09-23 11:12 | EKG ---
Test Reason : Blood Pressure : / mmHG Vent. Rate : 068 BPM Atrial Rate : 068 BPM P-R Int : 188 ms QRS Dur : 104 ms QT Int : 418 ms P-R-T Axes : 060 -13 097 degrees QTc Int : 444 ms NORMAL SINUS RHYTHM POSSIBLE LEFT ATRIAL ENLARGEMENT LEFT VENTRICULAR HYPERTROPHY T WAVE ABNORMALITY, CONSIDER LATERAL ISCHEMIA ABNORMAL ECG NO PREVIOUS ECGS AVAILABLE Confirmed by GURPREET ARAGON MD ([id number]) on 09/23/2016 11:12:20 AM Referred By: Confirmed By:GURPREET ARAGON MD
--- NOTE | 2016-09-23 13:25 | PN ---
S CIWA - CIWA Score Nausea/Vomitin Muscle Tremors: 2 Anxiety: 3 Agitation: 2 Paroxysmal Sweats: 3 Orientation: 0-Oriented Tacttile Disturbances: 2-Mild Itch/Numbness/Burn Auditory Disturbances: 0-None Visual Disturbances: 1-Very Mild Sensitivity Headache: 0-None Present CIWA-Ar Total Score: 15 BHS Progress Note (SOAP) Subjective: Sweating, Fatigue, Tremors. Objective: PT. A & O X 3, OBSERVED AMBULATING ON UNIT. 09/23/16 13:23 Vital Signs Temperature 97.6 F 09/23/16 10:27 Pulse Rate 80 09/23/16 10:27 Respiratory Rate 18 09/23/16 10:27 Blood Pressure 150/88 09/23/16 10:27 O2 Sat by Pulse Oximetry (%) Laboratory Last Values WBC 4.7 K/mm3 (4.0-10.0) 09/23/16 07:00 RBC 4.83 M/mm3 (4.00-5.60) 09/23/16 07:00 Hgb 13.9 GM/dL (11.7-16.9) D 09/23/16 07:00 Hct 43.0 % (35.4-49) 09/23/16 07:00 MCV 89.2 fl (80-96) 09/23/16 07:00 MCHC 32.4 g/dl (32.0-35.9) 09/23/16 07:00 RDW 13.7 % (11.9-15.9) 09/23/16 07:00 Plt Count 159 K/MM3 (134-434) 09/23/16 07:00 MPV 9.8 fl (7.5-11.1) 09/23/16 07:00 Sodium 141 mmol/L (136-145) 09/23/16 07:00 Potassium 3.9 mmol/L (3.5-5.1) 09/23/16 07:00 Chloride 104 mmol/L (98-107) 09/23/16 07:00 Carbon Dioxide 29 mmol/L (21-32) 09/23/16 07:00 Anion Gap 8 (8-16) 09/23/16 07:00 BUN 14 mg/dL (7-18) D 09/23/16 07:00 Creatinine 1.0 mg/dL (0.7-1.3) 09/23/16 07:00 Creat Clearance w eGFR > 60 (>60) 09/23/16 07:00 Random Glucose 87 mg/dL (74-106) 09/23/16 07:00 Calcium 8.6 mg/dL (8.5-10.1) 09/23/16 07:00 Total Bilirubin 0.4 mg/dL (0.2-1.0) 09/23/16 07:00 AST 17 U/L (15-37) 09/23/16 07:00 ALT 24 U/L (12-78) 09/23/16 07:00 Alkaline Phosphatase 53 U/L (45-117) 09/23/16 07:00 Total Protein 6.1 g/dl (6.4-8.2) L D 09/23/16 07:00 Albumin 3.3 g/dl (3.4-5.0) L D 09/23/16 07:00 Urine Color Yellow 09/22/16 23:00 Urine Appearance Clear 09/22/16 23:00 Urine pH 5.0 (5.0-8.0) D 09/22/16 23:00 Ur Specific [place] 1.023 (1.001-1.035) 09/22/16 23:00 Urine Protein Negative (NEGATIVE) 09/22/16 23:00 Urine Glucose (UA) Negative (NEGATIVE) 09/22/16 23:00 Urine Ketones Negative (NEGATIVE) 09/22/16 23:00 Urine Blood Negative (NEGATIVE) 09/22/16 23:00 Urine Nitrite Negative (NEGATIVE) 09/22/16 23:00 Urine Bilirubin Negative (NEGATIVE) 09/22/16 23:00 Urine Urobilinogen Negative E.U./dl (0.2-1.0) 09/22/16 23:00 Ur Leukocyte Esterase Negative (NEGATIVE) 09/22/16 23:00 RPR Titer Nonreactive (NONREACTIVE) 09/23/16 07:00 LABS NOTED. Assessment: 09/23/16 13:24 WITHDRAWAL SYMPTOMS. 09/23/16 13:24 Plan: CONTINUE DETOX. CONTINUE TO MONITOR BP.
--- NOTE | 2016-09-23 16:23 | CONSULT ---
[facility] Psychiatric Consult - Data Date of interview: 09/23/16 Admission source: [facility] Identifying data: This is another admission to [facility] for this 51 y/o AA male seeking detox treatment on for alcohol,cocaine and marijuana dependence.Patient is single,a father of one,homeless,unemployed and supported on [employer] benefits. Substance Abuse History: - Smoking Cessation. Smoking history: Current every day smoker. Have you smoked in the past 12 months: No. Aproximately how many cigarettes per day: 2. If you are a former smoker, when did you quit?: . Cigars Per Day: 0. Hx Chewing Tobacco Use: No. Initiated information on smoking cessation: Yes. 'Breaking Loose' booklet given: 09/22/16. - Substance & Tx. History. Hx Alcohol Use: Yes. Substance Use Type: Alcohol, Cocaine, Marijuana. - Substances Abused. Crack. Route: Smoking. Frequency: 3-6 times per week. Amount used: $100-200. Age of first use: 43. Date of Last Use : 09/22/16. Alcohol-vodka/beer. Route: Oral. Frequency: 3-6 times per week. Amount used: 1-2 pts./1-6 pk. Age of first use: 10. Date of Last Use: . Confirmed by the patient in this interview. Medical History: Hypertension and obesity. Psychiatric History: History of multiple psychiatric hospitalizations.Diagnosed with Bipolar Disorder.Hospitalized on three occasions at [facility] (psychiatric inpatient service).Mr Brasher has been referred to [facility] but,as per his own account,he has not kept his appointments for over seven months.Non compliant with medications." I don't take medications after I leave the hospital.I don't like to mix drugs with medications." Discharged from [facility] (05/2016) on seroquel 300 mg/hs.History of suicide attempt (2005) via ingestion of an household detergent (ammonia). Physical/Sexual Abuse/Trauma History: Patient denies. Additional Comment: Urine Drug Screen Results: THC-Marijuana, MELISA-Cocaine.Noted. Mental Status Exam - Mental Status Exam Alert and Oriented to: Time, Place, Person Cognitive Function: Good Patient Appearance: Disheveled Mood: Withdrawn, Hopeful, Euthymic Affect: Normal Range Patient Behavior: Fatigued, Appropriate, Cooperative Speech Pattern: Clear Voice Loudness: Normal Thought Process: Goal Oriented Thought Disorder: Not Present Hallucinations: Denies Suicidal Ideation: Denies Homicidal Ideation: Denies Insight/Judgement: Poor Sleep: Poorly, Difficulty falling asleep Appetite: Good Muscle strength/Tone: Normal Gait/Station: Normal Psychiatric Findings - Problem List ([place] 1, 2,3) (1) Alcohol dependence with uncomplicated withdrawal Current Visit: Yes Status: Acute (2) Cocaine dependence Current Visit: Yes Status: Acute (3) Nicotine dependence Current Visit: Yes Status: Acute Qualifiers: Nicotine product type: cigarettes Substance use status: uncomplicated Qualified Code(s): F17.210 - Nicotine dependence, cigarettes, uncomplicated (4) Cannabis dependence Current Visit: Yes Status: Chronic (5) Schizoaffective disorder Current Visit: Yes Status: Chronic (6) Cardiomyopathy Current Visit: No Status: Chronic (7) Substance induced mood disorder Current Visit: Yes Status: Acute (8) Essential hypertension Current Visit: Yes Status: Chronic - Initial Treatment Plan Initial Treatment Plan: Psychoeducation.Detoxification.Medication : seroquel 100 mg po hs (patient's request).Side effects/benefits discussed with the patient.He agrees with this plan.Observation.
[2016-09-23] MEDS: THIAMINE HCL 100 MG TABLET (FP) PO SCH (22:23)
[2016-09-23] MEDS: QUEtiapine FUMARATE 100 MG TABLET (FP) PO SCH (22:23)
[2016-09-24] MEDS: chlordiazePOXIDE HCL 25 MG CAPSULE PO SCH ×2 (07:44→10:35)
[2016-09-24] MEDS: PRENATAL VITAMINS W/ FOLIC ACID TABLET (FP) PO SCH (10:35)
[2016-09-24] MEDS: LISINOPRIL 20 MG TABLET (FP) PO SCH (10:35)
[2016-09-24] MEDS: ASPIRIN COATED 81 MG TABLET.EC PO SCH (10:35)
--- NOTE | 2016-09-24 12:27 | PN ---
[facility] CIWA - CIWA Score Nausea/Vomitin Muscle Tremors: 3 Anxiety: 3 Agitation: 2 Paroxysmal Sweats: 1-Minimal Palms Moist Orientation: 0-Oriented Tacttile Disturbances: 1-Very Mild Itch/Numbness Auditory Disturbances: 1-Very Mild Visual Disturbances: 1-Very Mild Sensitivity Headache: 2-Mild CIWA-Ar Total Score: 17 BHS Progress Note (SOAP) Subjective: ALERT,IRRITABLE,ANXIOUS,INTERRUPTED SLEEP,TREMOR Objective: 09/24/16 12:26 Vital Signs Temperature 96.9 F L 09/24/16 10:07 Pulse Rate 90 09/24/16 10:07 Respiratory Rate 20 09/24/16 10:07 Blood Pressure 107/59 09/24/16 10:07 O2 Sat by Pulse Oximetry (%) Laboratory Last Values WBC 4.7 K/mm3 (4.0-10.0) 09/23/16 07:00 RBC 4.83 M/mm3 (4.00-5.60) 09/23/16 07:00 Hgb 13.9 GM/dL (11.7-16.9) D 09/23/16 07:00 Hct 43.0 % (35.4-49) 09/23/16 07:00 MCV 89.2 fl (80-96) 09/23/16 07:00 MCHC 32.4 g/dl (32.0-35.9) 09/23/16 07:00 RDW 13.7 % (11.9-15.9) 09/23/16 07:00 Plt Count 159 K/MM3 (134-434) 09/23/16 07:00 MPV 9.8 fl (7.5-11.1) 09/23/16 07:00 Sodium 141 mmol/L (136-145) 09/23/16 07:00 Potassium 3.9 mmol/L (3.5-5.1) 09/23/16 07:00 Chloride 104 mmol/L (98-107) 09/23/16 07:00 Carbon Dioxide 29 mmol/L (21-32) 09/23/16 07:00 Anion Gap 8 (8-16) 09/23/16 07:00 BUN 14 mg/dL (7-18) D 09/23/16 07:00 Creatinine 1.0 mg/dL (0.7-1.3) 09/23/16 07:00 Creat Clearance w eGFR > 60 (>60) 09/23/16 07:00 Random Glucose 87 mg/dL (74-106) 09/23/16 07:00 Calcium 8.6 mg/dL (8.5-10.1) 09/23/16 07:00 Total Bilirubin 0.4 mg/dL (0.2-1.0) 09/23/16 07:00 AST 17 U/L (15-37) 09/23/16 07:00 ALT 24 U/L (12-78) 09/23/16 07:00 Alkaline Phosphatase 53 U/L (45-117) 09/23/16 07:00 Total Protein 6.1 g/dl (6.4-8.2) L D 09/23/16 07:00 Albumin 3.3 g/dl (3.4-5.0) L D 09/23/16 07:00 Urine Color Yellow 09/22/16 23:00 Urine Appearance Clear 09/22/16 23:00 Urine pH 5.0 (5.0-8.0) D 09/22/16 23:00 Ur Specific [place] 1.023 (1.001-1.035) 09/22/16 23:00 Urine Protein Negative (NEGATIVE) 09/22/16 23:00 Urine Glucose (UA) Negative (NEGATIVE) 09/22/16 23:00 Urine Ketones Negative (NEGATIVE) 09/22/16 23:00 Urine Blood Negative (NEGATIVE) 09/22/16 23:00 Urine Nitrite Negative (NEGATIVE) 09/22/16 23:00 Urine Bilirubin Negative (NEGATIVE) 09/22/16 23:00 Urine Urobilinogen Negative E.U./dl (0.2-1.0) 09/22/16 23:00 Ur Leukocyte Esterase Negative (NEGATIVE) 09/22/16 23:00 RPR Titer Nonreactive (NONREACTIVE) 09/23/16 07:00 Assessment: 09/24/16 12:27 WITHDRAWAL SYMPTOM Plan: CONTINUE DETOX
[2016-09-24] MEDS: chlordiazePOXIDE 5 MG CAPSULE PO SCH ×2 (17:32→22:17)
[2016-09-24] MEDS: THIAMINE HCL 100 MG TABLET (FP) PO SCH (22:17)
[2016-09-24] MEDS: QUEtiapine FUMARATE 100 MG TABLET (FP) PO SCH (22:17)
[2016-09-25] MEDS: chlordiazePOXIDE 5 MG CAPSULE PO SCH ×2 (05:42→10:45)
[2016-09-25] MEDS: ASPIRIN COATED 81 MG TABLET.EC PO SCH (10:45)
[2016-09-25] MEDS: LISINOPRIL 20 MG TABLET (FP) PO SCH (10:46)
[2016-09-25] MEDS: PRENATAL VITAMINS W/ FOLIC ACID TABLET (FP) PO SCH (10:46)
--- NOTE | 2016-09-25 12:26 | PN ---
S Progress Note (SOAP) Subjective: alert,irritable,anxious,interrupted sleep Objective: 09/25/16 12:25 Vital Signs Temperature 99.7 F H 09/25/16 09:35 Pulse Rate 81 09/25/16 09:35 Respiratory Rate 16 09/25/16 09:35 Blood Pressure 136/97 09/25/16 09:35 O2 Sat by Pulse Oximetry (%) 09/25/16 12:25 Assessment: 09/25/16 12:25 withdrawal symptom Plan: continue detox
[2016-09-25] MEDS: chlordiazePOXIDE HCL 10 MG CAPSULE PO SCH ×2 (19:06→22:12)
[2016-09-25] MEDS: QUEtiapine FUMARATE 100 MG TABLET (FP) PO SCH (22:12)
[2016-09-25] MEDS: THIAMINE HCL 100 MG TABLET (FP) PO SCH (22:12)
[2016-09-26] MEDS: chlordiazePOXIDE HCL 10 MG CAPSULE PO SCH ×2 (05:54→10:24)
[2016-09-26] MEDS: LISINOPRIL 20 MG TABLET (FP) PO SCH (10:24)
[2016-09-26] MEDS: ASPIRIN COATED 81 MG TABLET.EC PO SCH (10:24)
[2016-09-26] MEDS: PRENATAL VITAMINS W/ FOLIC ACID TABLET (FP) PO SCH (10:24)
--- NOTE | 2016-09-26 12:22 | PN ---
S Progress Note (SOAP) Subjective: ALERT,ANXIOUS,INTERRUPTED SLEEP, Objective: 09/26/16 12:21 Vital Signs Temperature 98.0 F 09/26/16 10:00 Pulse Rate 88 09/26/16 10:00 Respiratory Rate 18 09/26/16 10:00 Blood Pressure 160/90 09/26/16 10:00 O2 Sat by Pulse Oximetry (%) Assessment: 09/26/16 12:21 WITHDRAWAL SYMPTOM Plan: CONTINUE DETOX
[2016-09-26] MEDS: QUEtiapine FUMARATE 100 MG TABLET (FP) PO SCH (22:16)
[2016-09-26] MEDS: THIAMINE HCL 100 MG TABLET (FP) PO SCH (22:17)
--- NOTE | 2016-09-27 09:22 | DS ---
[facility] Detox Discharge Summary Admission Date: 09/22/16 Discharge Date: 09/27/16 - History Present History: Alcohol Dependence, Cannabis Dependence, Cocaine Dependence - Physical Exam Results Vital Signs: Vital Signs Temperature 97.1 F L 09/27/16 06:00 Pulse Rate 66 09/27/16 06:00 Respiratory Rate 18 09/27/16 06:00 Blood Pressure 119/71 09/27/16 06:00 O2 Sat by Pulse Oximetry (%) - Treatment Hospital Course: Detox Protocol Followed, Detoxed Safely, Responded well, Discharged Condition Good - Medication Discharge Medications: Ambulatory Orders Aspirin [ASA -] 81 mg PO DAILY #30 tab.chew 01/15/14 Lisinopril [Prinivil] 20 mg PO DAILY #30 tablet 01/15/14 Quetiapine Fumarate [Seroquel -] 300 mg PO HS #30 tab 06/04/16 Quetiapine Fumarate [Seroquel] 100 mg PO HS #30 tablet 09/23/16 - Diagnosis (1) Alcohol dependence with uncomplicated withdrawal Current Visit: Yes Status: Chronic (2) Positive PPD Current Visit: Yes Status: Chronic (3) Bipolar disorder Current Visit: Yes Status: Chronic (4) Cannabis dependence Current Visit: Yes Status: Chronic (5) Cocaine dependence Current Visit: Yes Status: Chronic (6) Essential hypertension Current Visit: Yes Status: Chronic (7) Nicotine dependence Current Visit: Yes Status: Chronic Qualifiers: Nicotine product type: cigarettes Substance use status: uncomplicated Qualified Code(s): F17.210 - Nicotine dependence, cigarettes, uncomplicated (8) Depression (emotion) Current Visit: Yes Status: Chronic Qualifiers: Depression Type: unspecified Qualified Code(s): F32.9 - Major depressive disorder, single episode, unspecified - AMA Did Patient Leave Against Medical Advice: No
[2016-09-27] MEDS: LISINOPRIL 20 MG TABLET (FP) PO SCH (10:16)
[2016-09-27] MEDS: PRENATAL VITAMINS W/ FOLIC ACID TABLET (FP) PO SCH (10:16)
[2016-09-27] MEDS: ASPIRIN COATED 81 MG TABLET.EC PO SCH (10:16)
--- NOTE | 2016-09-27 11:58 | HP ---
Psychiatrist Admission - Data Date of interview: 09/27/16 Admission source: [facility] Identifying data: This is the second [facility] admission for this 51 years old single Black male, father of a 19 year old daughter, unemployed on SSD, homeless seeking rehab treatment for alcohol and cocaine Medical History: Significant for Hypertension, Obesity and PPD+ Psychiatric History: Patient is uncooperative, not forthcoming and concealing information. He told justowriter operator that he does not want certain informations( psychiatric & criminal) on his record because that will prevent him from going where he wants to go. He got very annoyed and irritable when asked about these types of informations saying" I'm not here for that, why are you asking me that ". 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 Claims he was offered medication but did not want to be on any. Reports that 4-5 years ago he started seeing a psychiatrist at [facility] and was started on Zoloft for depression. Claims that he stopped taking it after a year or two due to side-effects. Reports having a few psychiatric admissions. Most recent one was at [facility] a few years ago. Following discharge there, he was referred to [facility] where, because of relapsing on alcohol and cocaine, he has not been going for the past 7 months. He was on Seroquel 300 mg po HS which he stopped taking as well. He was seen by Dr Art on 09/23/16 while in detox and he was started on Seroquel 100 mg po HS. He denies history of suicidal attempt but according to Dr Art's note, he has a history of suicidal attempt in [address] Art has his diagnosis as Schizoaffective Disorder. As mentioned earlier, patient would not elaborate or provide details regarding his psychiatric history for fear that this information would be used against him. He seems to have an agenda Physical/Sexual Abuse/Trauma History: Denies history of physical, sexual abse as well as DV relationship Additional Comment: Reports history of multiple arrests. Vital Signs: Vital Signs - 24 hr 09/26/16 09/26/16 09/27/16 14:07 22:00 00:30 Temperature 97.4 F L 98.2 F Pulse Rate 83 75 Respiratory 18 18 18 Rate Blood Pressure 143/91 145/108 02/09/27/16 09/27/16 03:30 06:00 09:57 Temperature 97.1 F L 97.7 F Pulse Rate 66 75 Respiratory 18 18 18 Rate Blood Pressure 119/71 154/109 Allergies/Adverse Reactions: Allergies Allergy/AdvReac Type Severity Reaction Status Date / Time No Known Drug Allergies Allergy Verified 09/27/16 12:10 pork derived (porcine) AdvReac Severe diarrhea Verified 09/27/16 12:10 Date of last physical exam: 09/22/16 Concur with the findings of this exam: Yes - Substance Abuse/Tx History Hx Alcohol Use: Yes Hx Substance Use: Yes Substance Use Type: Alcohol (Started drinking alcohol at age 10, consumes 1-2 pints of vodka & one 6 pk of beer daily. Lst drink on 09/22/16), Cocaine ( Started smoking crack cocaine at age 43, consumes $100-200 worth daily. Last smoked on 09/22/16) Hx Substance Use Treatment: Yes (7 previous inpt detox and one inpt rehab @ [facility] ) - Admission Criteria Previous failed treatment: Yes Poor recovery environment: Yes Comorbidities: Yes Lacks judgement: Yes Mental Status Exam - Mental Status Exam Alert and Oriented to: Time, Place, Person Cognitive Function: Fair Patient Appearance: Well Groomed Mood: Irritable Affect: Appropriate Patient Behavior: Uncooperative Speech Pattern: Clear Voice Loudness: Normal Thought Process: Intact Hallucinations: Denies Suicidal Ideation: Denies Insight/Judgement: Poor Sleep: Poorly Appetite: Good Muscle strength/Tone: Normal Gait/Station: Normal Psychiatric Findings - Problem List ([place] 1, 2,3) (1) Alcohol dependence with uncomplicated withdrawal Current Visit: Yes Status: Chronic (2) Cocaine dependence Current Visit: Yes Status: Chronic (3) Nicotine dependence Current Visit: Yes Status: Chronic Qualifiers: Nicotine product type: cigarettes Substance use status: uncomplicated Qualified Code(s): F17.210 - Nicotine dependence, cigarettes, uncomplicated (4) Schizoaffective disorder Current Visit: Yes Status: Chronic (5) Essential hypertension Current Visit: Yes Status: Acute (6) Positive PPD Current Visit: Yes Status: Chronic (7) Cardiomyopathy Current Visit: No Status: Chronic - Initial Treatment Plan Initial Treatment Plan: 1) Continue Seroquel 100 mg po HS. 2) Monitor progress
[2016-09-27] MEDS: THIAMINE HCL 100 MG TABLET (FP) PO SCH (21:42)
[2016-09-27] MEDS: QUEtiapine FUMARATE 100 MG TABLET (FP) PO SCH (21:42)
[2016-09-28] MEDS: ASPIRIN COATED 81 MG TABLET.EC PO SCH (09:44)
[2016-09-28] MEDS: LISINOPRIL 20 MG TABLET (FP) PO SCH (09:44)
[2016-09-28] MEDS: PRENATAL VITAMINS W/ FOLIC ACID TABLET (FP) PO SCH (09:45)
[2016-09-28] MEDS: THIAMINE HCL 100 MG TABLET (FP) PO SCH (21:19)
[2016-09-28] MEDS: QUEtiapine FUMARATE 100 MG TABLET (FP) PO SCH (21:19)
[2016-09-29] MEDS: PRENATAL VITAMINS W/ FOLIC ACID TABLET (FP) PO SCH (09:40)
[2016-09-29] MEDS: ASPIRIN COATED 81 MG TABLET.EC PO SCH (09:40)
[2016-09-29] MEDS: LISINOPRIL 20 MG TABLET (FP) PO SCH (09:40)
[2016-09-29] MEDS: THIAMINE HCL 100 MG TABLET (FP) PO SCH (21:30)
[2016-09-29] MEDS: QUEtiapine FUMARATE 100 MG TABLET (FP) PO SCH (21:30)
[2016-09-30] MEDS: LISINOPRIL 20 MG TABLET (FP) PO SCH (09:33)
[2016-09-30] MEDS: ASPIRIN COATED 81 MG TABLET.EC PO SCH (09:33)
[2016-09-30] MEDS: PRENATAL VITAMINS W/ FOLIC ACID TABLET (FP) PO SCH (09:33)
[2016-09-30] MEDS: QUEtiapine FUMARATE 100 MG TABLET (FP) PO SCH (21:18)
[2016-09-30] MEDS: THIAMINE HCL 100 MG TABLET (FP) PO SCH (21:18)
[2016-10-01] MEDS: PRENATAL VITAMINS W/ FOLIC ACID TABLET (FP) PO SCH (10:05)
[2016-10-01] MEDS: ASPIRIN COATED 81 MG TABLET.EC PO SCH (10:05)
[2016-10-01] MEDS: LISINOPRIL 20 MG TABLET (FP) PO SCH (10:05)
[2016-10-01] MEDS: THIAMINE HCL 100 MG TABLET (FP) PO SCH (21:39)
[2016-10-01] MEDS: QUEtiapine FUMARATE 100 MG TABLET (FP) PO SCH (21:39)
[2016-10-02] MEDS: PRENATAL VITAMINS W/ FOLIC ACID TABLET (FP) PO SCH (10:14)
[2016-10-02] MEDS: LISINOPRIL 20 MG TABLET (FP) PO SCH (10:14)
[2016-10-02] MEDS: ASPIRIN COATED 81 MG TABLET.EC PO SCH (10:14)
[2016-10-02] MEDS: THIAMINE HCL 100 MG TABLET (FP) PO SCH (21:31)
[2016-10-02] MEDS: QUEtiapine FUMARATE 100 MG TABLET (FP) PO SCH (21:31)
[2016-10-03] MEDS: PRENATAL VITAMINS W/ FOLIC ACID TABLET (FP) PO SCH (09:36)
[2016-10-03] MEDS: ASPIRIN COATED 81 MG TABLET.EC PO SCH (09:36)
[2016-10-03] MEDS: LISINOPRIL 20 MG TABLET (FP) PO SCH (09:36)
--- NOTE | 2016-10-03 13:32 | PN ---
Psychiatric Progress Note Vital Signs: Vital Signs Period Temp Pulse Resp BP Sys/Enriquez Pulse Ox Last 24 Hr 98.3 F 71-83 18-18 147-154/91-112 Date of Session: 10/03/16 Chief Complaint:: progress update. HPI: Patient is addressing alcohol, cocaine dsependence comorbid Schizoaffective disorder. ROS: Hypertension, Obesity and PPD Current Medications: Active Medications Generic Name Dose Route Start Last Admin Trade Name Freq PRN Reason Stop Dose Admin Acetaminophen 650 mg 09/22/16 16:34 Tylenol - PO Q4H PRN FEVER OR PAIN Al Hydroxide/Mg Hydroxide 30 ml 09/22/16 16:34 Mylanta Oral Suspension - PO Q6H PRN DYSPEPSIA Aspirin 81 mg 09/23/16 10:00 10/03/16 09:36 Ecotrin - PO 81 mg DAILY SHANT Administration Diphenhydramine HCl 50 mg 09/22/16 16:34 Benadryl - PO HSMR1 PRN INSOMNIA Eucalyptus/Menthol/Phenol/Sorbitol 1 each 09/22/16 16:34 Cepastat Lozenge - MM Q4H PRN SORE THROAT Guaifenesin 10 ml 09/22/16 16:34 Robitussin Dm - PO Q6H PRN COUGH Hydroxyzine Pamoate 25 mg 09/22/16 16:34 09/23/16 01:03 Vistaril - PO 25 mg Q4H PRN Administration AGITATION Ibuprofen 400 mg 09/22/16 16:34 Motrin - PO Q6H PRN SEVERE PAIN Lisinopril 20 mg 09/23/16 10:00 10/03/16 09:36 Prinivil PO 20 mg DAILY SHANT Administration Loperamide HCl 4 mg 09/22/16 16:34 Imodium - PO Q6H PRN DIARRHEA Magnesium Citrate 300 ml 09/22/16 16:34 Citroma - PO Q48H PRN CONSTIPATION Magnesium Hydroxide 30 ml 09/22/16 16:34 Milk Of Magnesia - PO DAILY PRN CONSTIPATION Nicotine Polacrilex 2 mg 09/22/16 16:34 Nicorette Gum - BC Q2H PRN NICOTINE REPLACEMENT RX Multivit/Folic Acid/Iron 1 tab 09/23/16 10:00 10/03/16 09:36 Vitamins (Sjr) - PO 1 tab DAILY SHANT Administration Pseudoephedrine/Triprolidine 1 combo 09/22/16 16:34 Actifed - PO TID PRN NASAL CONGESTION Quetiapine Fumarate 300 mg 10/03/16 13:18 Seroquel - PO HS SHANT Thiamine HCl 100 mg 09/22/16 22:00 10/02/16 21:31 Vitamin B1 - PO 100 mg HS SHANT Administration Medication(s) Change(s): increase Seroquel 300 mg po hs. Current Side Effect: No Lab tests ordered: No Lab tests reviewed: Yes Provider note:: Reviewed the chart, 's admission notes appreciated. Met with the patient, patient reports has been under theatment for Schizoaffective disorder and sees the psychiatrist at [facility] for the past 5 years, states he was on Seroquel 600 mg po and now he gets only 100 mg po hs, states he has racing thoughts at nights which keep his up, next day he has a difficult time to go to the groups, reviewed his medications, discussed indications/properties of meds. with the patient, will increase Seroquel 300 mg hs, continue to monitor progress. Total face to face time:: 35 Mental Status Exam - Mental Status Exam Alert and Oriented to: Time, Place, Person Cognitive Function: Good Patient Appearance: Well Groomed Mood: Suspicious, Anxious Affect: Mood Congruent Patient Behavior: Appropriate, Cooperative Speech Pattern: Clear, Appropriate Voice Loudness: Normal Thought Process: Goal Oriented Thought Disorder: Not Present Hallucinations: Denies Suicidal Ideation: Denies Homicidal Ideation: Denies Insight/Judgement: Fair Sleep: Poorly, Difficulty falling asleep Appetite: Fair Muscle strength/Tone: Normal Gait/Station: Normal Psychiatric Treatment Plan - Problem List (1) Bipolar disorder Current Visit: Yes (2) Nicotine dependence Current Visit: Yes Qualifiers: Nicotine product type: cigarettes Substance use status: uncomplicated Qualified Code(s): F17.210 - Nicotine dependence, cigarettes, uncomplicated (3) Schizoaffective disorder Current Visit: Yes (4) Alcohol dependence Current Visit: Yes
[2016-10-03] MEDS: QUEtiapine FUMARATE 300 MG TABLET PO SCH (21:25)
[2016-10-03] MEDS: THIAMINE HCL 100 MG TABLET (FP) PO SCH (21:25)
[2016-10-04] MEDS: ASPIRIN COATED 81 MG TABLET.EC PO SCH (09:41)
[2016-10-04] MEDS: PRENATAL VITAMINS W/ FOLIC ACID TABLET (FP) PO SCH (09:41)
[2016-10-04] MEDS: LISINOPRIL 20 MG TABLET (FP) PO SCH (09:41)
[2016-10-04] MEDS: THIAMINE HCL 100 MG TABLET (FP) PO SCH (21:23)
[2016-10-04] MEDS: QUEtiapine FUMARATE 300 MG TABLET PO SCH (21:23)
[2016-10-05] MEDS: PRENATAL VITAMINS W/ FOLIC ACID TABLET (FP) PO SCH (09:59)
[2016-10-05] MEDS: LISINOPRIL 20 MG TABLET (FP) PO SCH (09:59)
[2016-10-05] MEDS: ASPIRIN COATED 81 MG TABLET.EC PO SCH (09:59)
[2016-10-05] MEDS: QUEtiapine FUMARATE 300 MG TABLET PO SCH (21:18)
[2016-10-05] MEDS: THIAMINE HCL 100 MG TABLET (FP) PO SCH (21:18)
[2016-10-06] MEDS: ASPIRIN COATED 81 MG TABLET.EC PO SCH (09:56)
[2016-10-06] MEDS: LISINOPRIL 20 MG TABLET (FP) PO SCH (09:56)
[2016-10-06] MEDS: PRENATAL VITAMINS W/ FOLIC ACID TABLET (FP) PO SCH (09:56)
[2016-10-06] MEDS: THIAMINE HCL 100 MG TABLET (FP) PO SCH (21:09)
[2016-10-06] MEDS: QUEtiapine FUMARATE 300 MG TABLET PO SCH (21:09)
[2016-10-07 07:00] VITALS: BP 157/98; PULSE 76; TEMP 98.3
[2016-10-07] MEDS: LISINOPRIL 20 MG TABLET (FP) PO SCH (07:39)
--- NOTE | 2016-10-07 09:32 | PN ---
Psychiatric Progress Note Vital Signs: Vital Signs Period Temp Pulse Resp BP Sys/Enriquez Pulse Ox Last 24 Hr 98.3 F 76-88 16-18 157-163/86-98 Date of Session: 10/07/16 Chief Complaint:: discharge visit HPI: Patient is addressing alcohol, cocaine, nicotine dependence comorbid Schizoaffective disorder. ROS: Hypertension, Obesity medically managed. Current Side Effect: No Lab tests ordered: No Lab tests reviewed: Yes Provider note:: Patient has completed today his treatment and met his identified goals, will continue to address his issues at iaax level of care, he was referred to [facility] as residentiona. Patient addressed his addiction and the negative consquences of his use. Pt gained insight into his addiction and the habitual behaviors that compromise his change, he reports will utilize all supports available to prevent relapses. Seroquel well tolerated , scriprts provided. Patient was encouraged to use alternatve ways to cope with life stressors. patient is stable for discharge today. Total face to face time:: 35 Mental Status Exam - Mental Status Exam Alert and Oriented to: Time, Place, Person Cognitive Function: Good Patient Appearance: Well Groomed Mood: Hopeful Affect: Appropriate, Mood Congruent Patient Behavior: Appropriate, Cooperative Speech Pattern: Clear, Appropriate Voice Loudness: Normal Thought Process: Intact, Goal Oriented Thought Disorder: Not Present Hallucinations: Denies Suicidal Ideation: Denies Homicidal Ideation: Denies Insight/Judgement: Fair Sleep: Fair Appetite: Good Muscle strength/Tone: Normal Gait/Station: Normal Psychiatric Treatment Plan - Problem List (1) Nicotine dependence Qualifiers: Nicotine product type: cigarettes Substance use status: uncomplicated Qualified Code(s): F17.210 - Nicotine dependence, cigarettes, uncomplicated
== END 2016-10-07 08:58 | disposition home or self-care (01) | DRG 895 ==
LOC: YASAS 12:59 → Y3N 16:16 → Y6N 09-23 00:33 → Y5N 09-27 11:26
PROVIDERS: ADMIT Psychiatry & Neurology Psychiatry; ATTEND Psychiatry & Neurology Psychiatry
PROC: HZ42ZZZ Group Counseling for Substance Abuse Treatment, Cognitive-Behavioral (ICD-10-PCS; principal; 2016-10-07)
DX: F10.230 Alcohol dependence with withdrawal, uncomplicated (principal); F14.20 Cocaine dependence, uncomplicated; F12.20 Cannabis dependence, uncomplicated; F17.210 Nicotine dependence, cigarettes, uncomplicated; F19.24 Other psychoactive substance dependence with psychoactive substance-induced mood disorder; F31.9 Bipolar disorder, unspecified; F25.9 Schizoaffective disorder, unspecified; R76.11 Nonspecific reaction to tuberculin skin test without active tuberculosis
CPT/HCPCS: 36415; 80053; 81003; 85027; 86593; 93005; 93010

== ENCOUNTER 2016-11-19 10:52 | Inpatient (IN) | payer OTHER ==
[2016-11-19 11:49] VITALS: BMI 29.5
--- NOTE | 2016-11-19 12:07 | HP ---
CIWA Score - CIWA Score Nausea/Vomitin Muscle Tremors: 4-Moderate,w/Arms Extend Anxiety: 4-Mod. Anxious/Guarded Agitation: 1-Slight > Activity Paroxysmal Sweats: 1-Minimal Palms Moist Orientation: 0-Oriented Tacttile Disturbances: 1-Very Mild Itch/Numbness Auditory Disturbances: 1-Very Mild Visual Disturbances: 1-Very Mild Sensitivity Headache: 1-Very Mild CIWA-Ar Total Score: 17 Admission ROS [facility]HS - HPI Chief Complaint: I need help, I can't do it myself Allergies/Adverse Reactions: Allergies Allergy/AdvReac Type Severity Reaction Status Date / Time No Known Drug Allergies Allergy Verified 11/19/16 13:00 pork derived (porcine) AdvReac Severe diarrhea Verified 11/19/16 13:00 History of Present Illness: 51 yo gentleman here for detox from alcohol - no seizures but black outs, last here in rehab october 2015 but relapsed. This is one of several attempts. Exam Limitations: Clinical Condition - Ebola screening Have you traveled outside of the country in the last 21 days: No Have you had contact with anyone from an Ebola affected area: No Have you been sick,other than usual withdrawal symptoms: No Do you have a fever: No - Review of Systems Constitutional: Loss of Appetite, Malaise EENT: reports: No Symptoms Reported Respiratory: reports: No Symptoms reported Cardiac: reports: No Symptoms Reported GI: reports: Nausea, Indigestion : reports: Frequency Musculoskeletal: reports: No Symptoms Reported Integumentary: reports: No Symptoms Reported Neuro: reports: Headache Endocrine: reports: No Symptoms Reported Hematology: reports: No Symptoms Reported Psychiatric: reports: Judgement Intact, Mood/Affect Appropiate, Orientated x3 Other Systems: Reviewed and Negative Patient History - Patient Medical History Hx Anemia: No Hx Asthma: No Hx Chronic Obstructive Pulmonary Disease (COPD): No Hx Cancer: No Hx Cardiac Disorders: Yes (cardiomegaly) Hx Congestive Heart Failure: No Hx Hypertension: Yes (on meds) Hx Hypercholesterolemia: No Hx Pacemaker: No HX Cerebrovascular Accident: No Hx Seizures: No Hx Dementia: No Hx Diabetes: No Hx Gastrointestinal Disorders: No Hx Liver Disease: No Hx Genitourinary Disorders: No Hx Sexually Transmitted Disorders: No Hx Renal Disease (ESRD): No Hx Thyroid Disease: No Hx Human Immunodeficiency Virus (HIV): No Hx Hepatitis C: No Hx Depression: Yes Hx Suicide Attempt: Yes (2013 hospitalized at [facility]) Hx Bipolar Disorder: Yes (on meds seroquel 600 mg HS) Hx Schizophrenia: Yes (hears voices sometimes) - Patient Surgical History Past Surgical History: No Hx Neurologic Surgery: No Hx Cataract Extraction: No Hx Cardiac Surgery: No Hx Lung Surgery: No Hx Breast Surgery: No Hx Breast Biopsy: No Hx Abdominal Surgery: No Hx Appendectomy: No Hx Cholecystectomy: No Hx Genitourinary Surgery: No Hx Section: No Hx Orthopedic Surgery: No Anesthesia Reaction: No - PPD History Previous Implant?: Yes Documented Results: Positive w/proof Date: 06/04/16 (cxr normal) Results: positive PPD to be Administered?: No - Reproductive History Patient is a Female of Child Bearing Age (11 -55 yrs old): No (male) - Smoking Cessation Smoking history: Current every day smoker Have you smoked in the past 12 months: No Aproximately how many cigarettes per day: 3 If you are a former smoker, when did you quit?: 07/22/13 Cigars Per Day: 0 Hx Chewing Tobacco Use: No Initiated information on smoking cessation: Yes 'Breaking Loose' booklet given: 11/19/16 - Substance & Tx. History Hx Alcohol Use: Yes Hx Substance Use: Yes Substance Use Type: Alcohol, Cocaine Hx Substance Use Treatment: Yes (detox, rehab) - Substances Abused Alcohol Route: Oral Frequency: 3-6 times per week Amount used: 1-2 pints Age of first use: 10 Date of Last Use: 11/19/16 Cocaine Route: Smoking Frequency: 3-6 times per week Amount used: $100 Age of first use: 43 Date of Last Use: 11/17/16 Family Disease History - Family Disease History Family Disease History: Diabetes: Mother (alive, hx alcohol,HTN), Heart Disease : Mother, Sister (DRUGS,HTN), Other: Father (ALCOHOL,CANNABIS,), Mother , Sister Admission Physical Exam S - Vital Signs Vital Signs: Vital Signs - 24 hr 11/19/16 11:46 Temperature 97.0 F L Pulse Rate 76 Respiratory 20 Rate Blood Pressure 165/103 - Physical General Appearance: Yes: Nourished, Appropriately Dressed, Mild Distress HEENTM: Yes: Hearing grossly Normal, Normal ENT Inspection, Normocephalic, Normal Voice, Pharynx Normal Respiratory: Yes: Normal Breath Sounds, No Respiratory Distress Neck: Yes: No masses,lesions,Nodules, Supple, Trachea in good position Breast: Yes: Breast Exam Deferred Cardiology: Yes: Regular Rhythm, Regular Rate Abdominal: Yes: Soft Genitourinary: Yes: Frequency Back: Yes: Within Normal Limits Musculoskeletal: Yes: full range of Motion, Gait Steady Extremities: Yes: Normal Inspection, Normal Range of Motion Neurological: Yes: Fully Oriented, Alert, Normal Mood/Affect, Normal Response Integumentary: Yes: Normal Color, Dry, Warm Lymphatic: Yes: Within Normal Limits - Diagnostic (1) PPD positive, treated Current Visit: Yes Status: Chronic Comment: chest xray done 06/04/2016 - normal (2) Alcohol dependence with uncomplicated withdrawal Current Visit: Yes Status: Chronic (3) Cocaine dependence Current Visit: Yes Status: Chronic (4) Nicotine dependence Current Visit: Yes Status: Chronic Qualifiers: Nicotine product type: cigarettes Substance use status: uncomplicated Qualified Code(s): F17.210 - Nicotine dependence, cigarettes, uncomplicated (5) Essential hypertension Current Visit: Yes Status: Chronic Cleared for Admission [facility] - Detox or Rehab [facility] Level of Care: Medically Managed Detox Regimen/Protocol: Librium [facility] Breath Alcohol Content Breath Alcohol Content: 0 Urine Drug Screen - Results Drug Screen Negative: No Urine Drug Screen Results: MELISA-Cocaine
[2016-11-19] MEDS ORDERED: P-EPHED 60MG/TRIPROLIDI 2.5MG TABLET PO PRN (12:21)
[2016-11-19] MEDS ORDERED: ACETAMINOPHEN 325 MG TABLET (FP) PO PRN (12:21)
[2016-11-19] MEDS ORDERED: chlordiazePOXIDE HCL 25 MG CAPSULE PO ONE (12:21)
[2016-11-19] MEDS ORDERED: MENTHOL/PHENOL 1 EACH UD MM PRN (12:21)
[2016-11-19] MEDS ORDERED: hydrOXYzine PAMOATE 50 MG CAPSULE (FP) PO PRN (12:21)
[2016-11-19] MEDS ORDERED: MAGNESIUM HYDROX 2400MG/30ML ORAL SUSPENSION 30 ML CUP PO PRN (12:21)
[2016-11-19] MEDS ORDERED: LOPERAMIDE HCL 2 MG CAPSULE PO PRN (12:21)
[2016-11-19] MEDS ORDERED: guaiFENesin/D-METHORPHAN HB 10 ML UNIT-DOSE CUPS PO PRN (12:21)
[2016-11-19] MEDS ORDERED: diphenhydrAMINE HCL 50 MG CAPSULE PO PRN (12:21)
[2016-11-19] MEDS ORDERED: MAG HYDROX/AL HYDROX/SIMETH 30 ML UNIT-DOSE CUP PO PRN (12:21)
[2016-11-19] MEDS ORDERED: chlordiazePOXIDE HCL 25 MG CAPSULE PO PRN (12:21)
[2016-11-19] MEDS ORDERED: MAGNESIUM CITRATE 300 ML BOTTLE PO PRN (12:21)
[2016-11-19] MEDS: LISINOPRIL 20 MG TABLET (FP) PO SCH (16:59)
[2016-11-19] MEDS: chlordiazePOXIDE HCL 25 MG CAPSULE PO SCH ×2 (17:16→22:03)
[2016-11-19] MEDS: ASPIRIN 81 MG CHEWABLE TABLETS PO SCH (17:16)
[2016-11-19 17:24] LABS: URINE APPEARANCE CLOUDY; URINE BILIRUBIN NEGATIVE (NEGATIVE); URINE BLOOD NEGATIVE (NEGATIVE); URINE COLOR YELLOW; URINE GLUCOSE (UA) NEGATIVE (NEGATIVE); URINE KETONE NEGATIVE (NEGATIVE); URINE LEUK ESTERASE NEGATIVE (NEGATIVE); URINE NITRITE NEGATIVE (NEGATIVE); URINE PROTEIN NEGATIVE (NEGATIVE); URINE UROBILINOGEN NEGATIVE E.U./dl (0.2-1.0)
[2016-11-19] MEDS: THIAMINE HCL 100 MG TABLET (FP) PO SCH (22:03)
[2016-11-20] MEDS: chlordiazePOXIDE HCL 25 MG CAPSULE PO SCH ×4 (06:11→22:21)
[2016-11-20] MEDS: LISINOPRIL 20 MG TABLET (FP) PO SCH (10:30)
[2016-11-20] MEDS: PRENATAL VITAMINS W/ FOLIC ACID TABLET (FP) PO SCH (10:30)
[2016-11-20] MEDS: ASPIRIN 81 MG CHEWABLE TABLETS PO SCH (10:30)
[2016-11-20 10:50] LABS: MCH 29.2 pg (25.7-33.7); MCHC 32.4 g/dl (32.0-35.9); MEAN CELL VOLUME 90.2 fl (80-96); MEAN PLT VOLUME 9.5 fl (7.5-11.1); PLATELET COUNT 143 K/MM3 (134-434); RDW 14.2 % (11.9-15.9); WHITE BLOOD COUNT 3.8 K/mm3 (4.0-10.0)
[2016-11-20 11:18] LABS: ALBUMIN 3.5 g/dl (3.4-5.0); ALK PHOS 56 U/L (45-117); ANION GAP 9 (8-16); BILIRUBIN,TOTAL 0.7 mg/dL (0.2-1.0); CALCIUM 8.8 mg/dL (8.5-10.1); CO2 28 mmol/L (21-32); GLUCOSE,RANDOM 131 mg/dL (74-106); SGOT/AST 13 U/L (15-37); SGPT/ALT 25 U/L (12-78); TOT PROT 6.7 g/dl (6.4-8.2)
--- NOTE | 2016-11-20 12:24 | PN ---
S CIWA - CIWA Score Nausea/Vomitin Muscle Tremors: 3 Anxiety: 3 Agitation: 3 Paroxysmal Sweats: 1-Minimal Palms Moist Orientation: 0-Oriented Tacttile Disturbances: 1-Very Mild Itch/Numbness Auditory Disturbances: 1-Very Mild Visual Disturbances: 1-Very Mild Sensitivity Headache: 2-Mild CIWA-Ar Total Score: 18 S Progress Note (SOAP) Subjective: ALERT,IRRITABLE,ANXIOUS,INTERRUPTED SLEEP,TREMOR,PAIN IN THE BODY Objective: 11/20/16 12:17 Vital Signs Temperature 97.7 F 11/20/16 10:38 Pulse Rate 84 11/20/16 10:38 Respiratory Rate 16 11/20/16 10:38 Blood Pressure 148/92 11/20/16 10:38 O2 Sat by Pulse Oximetry (%) EKG NSR,INVERTED T IN 1 AND AVL NO CHEST PAIN,NO SOB,NO DIZZINESS 11/20/16 12:20 11/20/16 12:20 11/20/16 12:24 Laboratory Last Values WBC 3.8 K/mm3 (4.0-10.0) L 11/20/16 08:00 RBC 4.98 M/mm3 (4.00-5.60) 11/20/16 08:00 Hgb 14.5 GM/dL (11.7-16.9) 11/20/16 08:00 Hct 44.9 % (35.4-49) 11/20/16 08:00 MCV 90.2 fl (80-96) 11/20/16 08:00 MCHC 32.4 g/dl (32.0-35.9) 11/20/16 08:00 RDW 14.2 % (11.9-15.9) 11/20/16 08:00 Plt Count 143 K/MM3 (134-434) 11/20/16 08:00 MPV 9.5 fl (7.5-11.1) 11/20/16 08:00 Sodium 142 mmol/L (136-145) 11/20/16 08:00 Potassium 3.7 mmol/L (3.5-5.1) 11/20/16 08:00 Chloride 105 mmol/L (98-107) 11/20/16 08:00 Carbon Dioxide 28 mmol/L (21-32) 11/20/16 08:00 Anion Gap 9 (8-16) 11/20/16 08:00 BUN 8 mg/dL (7-18) D 11/20/16 08:00 Creatinine 1.0 mg/dL (0.7-1.3) 11/20/16 08:00 Creat Clearance w eGFR > 60 (>60) 11/20/16 08:00 Random Glucose 131 mg/dL (74-106) H D 11/20/16 08:00 Calcium 8.8 mg/dL (8.5-10.1) 11/20/16 08:00 Total Bilirubin 0.7 mg/dL (0.2-1.0) D 11/20/16 08:00 AST 13 U/L (15-37) L D 11/20/16 08:00 ALT 25 U/L (12-78) 11/20/16 08:00 Alkaline Phosphatase 56 U/L (45-117) 11/20/16 08:00 Total Protein 6.7 g/dl (6.4-8.2) 11/20/16 08:00 Albumin 3.5 g/dl (3.4-5.0) 11/20/16 08:00 Urine Color Yellow 11/19/16 17:09 Urine Appearance Cloudy 11/19/16 17:09 Urine pH 9.0 (5.0-8.0) H D 11/19/16 17:09 Ur Specific [place] 1.017 (1.001-1.035) 11/19/16 17:09 Urine Protein Negative (NEGATIVE) 11/19/16 17:09 Urine Glucose (UA) Negative (NEGATIVE) 11/19/16 17:09 Urine Ketones Negative (NEGATIVE) 11/19/16 17:09 Urine Blood Negative (NEGATIVE) 11/19/16 17:09 Urine Nitrite Negative (NEGATIVE) 11/19/16 17:09 Urine Bilirubin Negative (NEGATIVE) 11/19/16 17:09 Urine Urobilinogen Negative E.U./dl (0.2-1.0) 11/19/16 17:09 Ur Leukocyte Esterase Negative (NEGATIVE) 11/19/16 17:09 RPR Titer Nonreactive (NONREACTIVE) 11/20/16 08:00 Assessment: 11/20/16 12:20 WITHDRAWAL SYMPTOM 11/20/16 12:24 Plan: CONTINUE DETOX,BGM MONITORING,INITIAL GLUCOSE 131
[2016-11-20] MEDS ORDERED: cloNIDine HCL 0.1 MG TABLET PO ONE (13:45)
[2016-11-20] MEDS: THIAMINE HCL 100 MG TABLET (FP) PO SCH (22:21)
[2016-11-21] MEDS: chlordiazePOXIDE HCL 25 MG CAPSULE PO SCH ×2 (06:38→10:41)
--- NOTE | 2016-11-21 08:46 | EKG ---
Test Reason : Blood Pressure : / mmHG Vent. Rate : 072 BPM Atrial Rate : 072 BPM P-R Int : 180 ms QRS Dur : 102 ms QT Int : 408 ms P-R-T Axes : 004 -26 110 degrees QTc Int : 446 ms NORMAL SINUS RHYTHM INCOMPLETE RIGHT BUNDLE BRANCH BLOCK ABNORMAL ECG WHEN COMPARED WITH ECG OF 22-SEP-2016 18:13, MARKED T WAVE ABNORMALITY, CONSIDER LATERAL ISCHEMIA HAS RESOLVED Confirmed by CLIVE ALONSO, PRASHANT ([id number]) on 11/21/2016 8:45:42 AM Referred By: Confirmed By:PRASHANT DUFFY MD
--- NOTE | 2016-11-21 09:40 | PN ---
S CIWA - CIWA Score Nausea/Vomitin Muscle Tremors: 3 Anxiety: 2 Agitation: 2 Paroxysmal Sweats: 1-Minimal Palms Moist Orientation: 0-Oriented Tacttile Disturbances: 1-Very Mild Itch/Numbness Auditory Disturbances: 1-Very Mild Visual Disturbances: 1-Very Mild Sensitivity Headache: 2-Mild CIWA-Ar Total Score: 16 BHS Progress Note (SOAP) Subjective: ALERT,IRRITABLE,ANXIOUS,INTERRUPTED SLEEP,TREMOR Objective: 11/21/16 09:39 Vital Signs Temperature 98.1 F 11/21/16 06:00 Pulse Rate 74 11/21/16 07:30 Respiratory Rate 18 11/21/16 07:30 Blood Pressure 133/93 11/21/16 07:30 O2 Sat by Pulse Oximetry (%) Assessment: 11/21/16 09:39 WITHDRAWAL SYMPTOM Plan: CONTINUE DETOX
[2016-11-21] MEDS: LISINOPRIL 20 MG TABLET (FP) PO SCH (10:40)
[2016-11-21] MEDS: PRENATAL VITAMINS W/ FOLIC ACID TABLET (FP) PO SCH (10:41)
[2016-11-21] MEDS: ASPIRIN 81 MG CHEWABLE TABLETS PO SCH (10:41)
--- NOTE | 2016-11-21 13:20 | CONSULT ---
[facility] Psychiatric Consult - Data Date of interview: 11/21/16 Admission source: [facility] Identifying data: This is 51 years old male with psychiatric hospitalization history, intoxicated with: Alcohol, Cocaine, Nicotine Substance Abuse History: - Smoking Cessation. Smoking history: Current every day smoker. Have you smoked in the past 12 months: No. Aproximately how many cigarettes per day: 3. If you are a former smoker, when did you quit?: . Cigars Per Day: 0. Hx Chewing Tobacco Use: No. Initiated information on smoking cessation: Yes. 'Breaking Loose' booklet given: 11/19/16. - Substance & Tx. History. Hx Alcohol Use: Yes. Hx Substance Use: Yes. Substance Use Type : Alcohol, Cocaine. Hx Substance Use Treatment: Yes (detox, rehab). - Substances Abused. Alcohol. Route: Oral. Frequency: 3-6 times per week. Amount used: 1-2 pints. Age of first use: 10. Date of Last Use: 11/19/16. Cocaine. Route: Smoking. Frequency: 3-6 times per week. Amount used: $100. Age of first use: 43. Date of Last Use: 11/17/16 Medical History: HTN, PPD+ history, Chest pain, Cardiopathy Psychiatric History: Patient reports history of Schizoaffective disorder, PTSD, reports most recent psychiatric admissionj on: 2013 at [facility] Physical/Sexual Abuse/Trauma History: Denies Additional Comment: Observation. Detox Unit Care Protocol Mental Status Exam - Mental Status Exam Alert and Oriented to: Person Cognitive Function: Fair Patient Appearance: Unkempt Mood: Sad Affect: Flat Patient Behavior: Sedated Speech Pattern: Delayed Voice Loudness: Mildly Soft/Quiet Thought Process: Circumstantial Thought Disorder: Being Controlled Hallucinations: Denies Suicidal Ideation: Denies Homicidal Ideation: Denies Insight/Judgement: Fair Sleep: Difficulty falling asleep Appetite: Weight gain Muscle strength/Tone: Mild Hypotonicity Gait/Station: Shuffling Additional Comments: Observation. Detox Unit Care Protocol Psychiatric Findings - Problem List ([place] 1, 2,3) (1) Cocaine dependence Current Visit: Yes Status: Chronic (2) Nicotine dependence Current Visit: Yes Status: Chronic Qualifiers: Nicotine product type: cigarettes Substance use status: uncomplicated Qualified Code(s): F17.210 - Nicotine dependence, cigarettes, uncomplicated (3) Alcohol dependence Current Visit: No Status: Acute (4) Substance induced mood disorder Current Visit: No Status: Acute (5) Schizoaffective disorder Current Visit: No Status: Chronic (6) ptsd Current Visit: No Status: Chronic - Initial Treatment Plan Initial Treatment Plan: Observation. Detox Unit Care Protocol. Refusing pharmacological intervention
[2016-11-21] MEDS: chlordiazePOXIDE 5 MG CAPSULE PO SCH ×2 (17:55→22:18)
[2016-11-21] MEDS: THIAMINE HCL 100 MG TABLET (FP) PO SCH (22:18)
[2016-11-22] MEDS: chlordiazePOXIDE 5 MG CAPSULE PO SCH ×2 (05:33→10:01)
--- NOTE | 2016-11-22 09:23 | PN ---
S Progress Note (SOAP) Subjective: ALERT,IRRITABLE,ANXIOUS,INTERRUPTED SLEEP, Objective: 11/22/16 09:21 Vital Signs Temperature 97.9 F 11/22/16 06:05 Pulse Rate 69 11/22/16 06:05 Respiratory Rate 16 11/22/16 06:05 Blood Pressure 143/96 11/22/16 06:05 O2 Sat by Pulse Oximetry (%) BGM 80 Assessment: 11/22/16 09:22 WITHDRAWAL SYMPTOM Plan: CONTINUE DETOX
--- NOTE | 2016-11-22 09:58 | PN ---
[facility] Progress Note Note: BP 160/100 .NO COMPLAINT,WILL ADD HYDROCHLOROTHIAZIDE 25 MGS PO DAILY TO LISINOPRIL 20 MGS PO DAILT BP MONITORING
[2016-11-22] MEDS ORDERED: HYDROCHLOROTHIAZIDE 25 MG TABLET (FP) PO SCH (10:00)
[2016-11-22] MEDS: PRENATAL VITAMINS W/ FOLIC ACID TABLET (FP) PO SCH (10:00)
[2016-11-22] MEDS: ASPIRIN 81 MG CHEWABLE TABLETS PO SCH (10:01)
[2016-11-22] MEDS: LISINOPRIL 20 MG TABLET (FP) PO SCH (10:03)
[2016-11-22 13:50] VITALS: BP 155/73; PULSE 79; TEMP 98.4
[2016-11-22] MEDS ORDERED: chlordiazePOXIDE HCL 10 MG CAPSULE PO SCH (17:00)
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
== END 2016-11-22 17:25 | disposition home or self-care (01) | DRG 897 ==
LOC: YASAS 10:52 → Y6N 13:15
PROVIDERS: ADMIT Internal Medicine; ATTEND Internal Medicine Addiction Medicine
PROC: HZ2ZZZZ Detoxification Services for Substance Abuse Treatment (ICD-10-PCS; principal; 2016-11-19)
DX: F19.230 Other psychoactive substance dependence with withdrawal, uncomplicated (principal); F14.20 Cocaine dependence, uncomplicated; F10.230 Alcohol dependence with withdrawal, uncomplicated; F17.210 Nicotine dependence, cigarettes, uncomplicated; F19.24 Other psychoactive substance dependence with psychoactive substance-induced mood disorder; F43.10 Post-traumatic stress disorder, unspecified; I10 Essential (primary) hypertension; I51.7 Cardiomegaly; R76.11 Nonspecific reaction to tuberculin skin test without active tuberculosis; Z91.5 Personal history of self-harm
CPT/HCPCS: 36415; 80053; 81003; 85027; 86593; 93005; 93010

== ENCOUNTER 2017-11-16 11:18 | Inpatient (IN) | payer OTHER ==
[2017-11-16 14:48] VITALS: BMI 29.6
--- NOTE | 2017-11-16 15:17 | HP ---
CIWA Score - CIWA Score Nausea/Vomitin-Mild Nausea/No Vomiting Muscle Tremors: 4-Moderate,w/Arms Extend Anxiety: 4-Mod. Anxious/Guarded Agitation: 4-Moderately Restless Paroxysmal Sweats: 1-Minimal Palms Moist Orientation: 0-Oriented Tacttile Disturbances: 1-Very Mild Itch/Numbness Auditory Disturbances: 0-None Visual Disturbances: 1-Very Mild Sensitivity Headache: 1-Very Mild CIWA-Ar Total Score: 17 Admission ROS S - HPI Chief Complaint: withdrawal sx Allergies/Adverse Reactions: Allergies Allergy/AdvReac Type Severity Reaction Status Date / Time No Known Drug Allergies Allergy Verified 11/16/17 14:53 History of Present Illness: 52 years old male with long history of alcohol nicotine dependent has hypertension and positive ppd and depresion is admitted to detox Exam Limitations: No Limitations - Ebola screening Have you traveled outside of the country in the last 21 days: No (N) Have you had contact with anyone from an Ebola affected area: No Have you been sick,other than usual withdrawal symptoms: No Do you have a fever: No - Review of Systems Constitutional: Weight Stable EENT: reports: No Symptoms Reported Respiratory: reports: No Symptoms reported Cardiac: reports: No Symptoms Reported GI: reports: No Symptoms Reported : reports: No Symptoms Reported Musculoskeletal: reports: No Symptoms Reported Integumentary: reports: No Symptoms Reported Neuro: reports: Tremors Endocrine: reports: No Symptoms Reported Hematology: reports: No Symptoms Reported Psychiatric: reports: Judgement Intact, Orientated x3, Depressed Other Systems: Reviewed and Negative Patient History - Patient Medical History Hx Anemia: No Hx Asthma: No Hx Chronic Obstructive Pulmonary Disease (COPD): No Hx Cancer: No Hx Cardiac Disorders: No Hx Congestive Heart Failure: No Hx Hypertension: Yes Hx Hypercholesterolemia: No Hx Pacemaker: No HX Cerebrovascular Accident: No Hx Seizures: No Hx Dementia: No Hx Diabetes: No Hx Gastrointestinal Disorders: No Hx Liver Disease: No Hx Genitourinary Disorders: No Hx Sexually Transmitted Disorders: No Hx Renal Disease (ESRD): No Hx Thyroid Disease: No Hx Human Immunodeficiency Virus (HIV): No Hx Hepatitis C: No Hx Depression: No Hx Suicide Attempt: No Hx Bipolar Disorder: Yes (on meds seroquel 600 mg HS) Hx Schizophrenia: No - Patient Surgical History Past Surgical History: No Hx Neurologic Surgery: No Hx Cataract Extraction: No Hx Cardiac Surgery: No Hx Lung Surgery: No Hx Breast Surgery: No Hx Breast Biopsy: No Hx Abdominal Surgery: No Hx Appendectomy: No Hx Cholecystectomy: No Hx Genitourinary Surgery: No Hx Orthopedic Surgery: No - PPD History Previous Implant?: Yes Documented Results: Positive w/proof Implanted On Prior R Admission?: No Date: 06/04/16 Results: 0 mm PPD to be Administered?: No - Smoking Cessation Smoking history: Current every day smoker Have you smoked in the past 12 months: No Aproximately how many cigarettes per day: 3 If you are a former smoker, when did you quit?: 07/22/13 Cigars Per Day: 0 Hx Chewing Tobacco Use: No Initiated information on smoking cessation: Yes 'Breaking Loose' booklet given: 11/16/17 - Substance & Tx. History Hx Alcohol Use: Yes Hx Substance Use: Yes Substance Use Type: Alcohol, Cocaine Hx Substance Use Treatment: Yes (11/2016 [facility] - Substances Abused Crack Route: Smoking Frequency: 3-6 times per week Amount used: $100-150 Age of first use: 44 Date of Last Use: 11/15/17 Alcohol-vodka/beer Route: Oral Frequency: Daily Amount used: 2 pts./1-6 pk. Age of first use: 10 Date of Last Use: 11/16/17 Marijuana Route: Smoking Frequency: 3-6 times per week Amount used: 1 joint Age of first use: 14 Date of Last Use: 11/15/17 Family Disease History - Family Disease History Family Disease History: Diabetes: Mother (alive, hx alcohol,HTN), Heart Disease : Mother, Sister (DRUGS,HTN), Other: Father (ALCOHOL,CANNABIS,), Mother , Sister Admission Physical Exam BHS - Vital Signs Vital Signs: Vital Signs - 24 hr 11/16/17 14:44 Temperature 96.9 F L Pulse Rate 76 Respiratory 20 Rate Blood Pressure 162/98 - Physical General Appearance: Yes: Nourished, Moderate Distress, Tremorous, Irritable, Sweating, Anxious HEENTM: Yes: Hearing grossly Normal, Normocephalic, Normal Voice Respiratory: Yes: Chest Non-Tender, Lungs Clear, Normal Breath Sounds, No Respiratory Distress, No Accessory Muscle Use Neck: Yes: Supple, Trachea in good position Breast: Yes: Breasts Symetrical, No Discharge Cardiology: Yes: Regular Rhythm, Regular Rate, S1, S2 Abdominal: Yes: Non Tender, Soft, Increased Bowel Sounds Genitourinary: Yes: Within Normal Limits Back: Yes: Normal Inspection Musculoskeletal: Yes: full range of Motion, Gait Steady Extremities: Yes: Normal Inspection, Normal Range of Motion, Non-Tender Neurological: Yes: Fully Oriented, Alert, Motor Strength 5/5, Normal Response, Depressed Affect Integumentary: Yes: Warm Lymphatic: Yes: Within Normal Limits - Diagnostic (1) Alcohol dependence with uncomplicated withdrawal Current Visit: Yes Status: Acute (2) Depression (emotion) Current Visit: Yes Status: Suspected Qualifiers: Depression Type: dysthymia Qualified Code(s): F34.1 - Dysthymic disorder (3) Essential hypertension Current Visit: Yes Status: Chronic (4) Irregular heart rate Current Visit: No Status: Chronic Comment: ASPIRIN (5) Nicotine dependence Current Visit: Yes Status: Acute Qualifiers: Nicotine product type: cigarettes Substance use status: in withdrawal Qualified Code(s): F17.213 - Nicotine dependence, cigarettes, with withdrawal (6) PPD positive, treated Current Visit: No Status: Resolved Comment: chest xray done 06/04/2016 - normal Cleared for Admission [facility] - Detox or Rehab [facility] Level of Care: Medically Managed Detox Regimen/Protocol: Librium [facility] Breath Alcohol Content Breath Alcohol Content: 0 Urine Drug Screen - Results Drug Screen Negative: No Urine Drug Screen Results: THC-Marijuana, MELISA-Cocaine
[2017-11-16] MEDS ORDERED: LOPERAMIDE HCL 2 MG CAPSULE PO PRN (15:19)
[2017-11-16] MEDS ORDERED: MAGNESIUM HYDROX 2400MG/30ML ORAL SUSPENSION 30 ML CUP PO PRN (15:19)
[2017-11-16] MEDS ORDERED: MENTHOL/PHENOL 1 EACH UD MM PRN (15:19)
[2017-11-16] MEDS ORDERED: ACETAMINOPHEN 325 MG TABLET (FP) PO PRN (15:19)
[2017-11-16] MEDS ORDERED: P-EPHED 60MG/TRIPROLIDI 2.5MG TABLET PO PRN (15:19)
[2017-11-16] MEDS ORDERED: MAG HYDROX/AL HYDROX/SIMETH 30 ML UNIT-DOSE CUP PO PRN (15:19)
[2017-11-16] MEDS ORDERED: guaiFENesin/D-METHORPHAN HB 10 ML UNIT-DOSE CUPS PO PRN (15:19)
[2017-11-16] MEDS ORDERED: NICOTINE POLACRILEX 2 MG GUM BUC PRN (15:19)
[2017-11-16] MEDS ORDERED: chlordiazePOXIDE HCL 25 MG CAPSULE PO PRN (15:19)
[2017-11-16] MEDS ORDERED: MAGNESIUM CITRATE 300 ML BOTTLE PO PRN (15:19)
[2017-11-16] MEDS ORDERED: NICOTINE 14 MG/24 HOURS TOPICAL PATCH TD PRN (15:50)
[2017-11-16] MEDS: LISINOPRIL 10 MG TABLET (FP) PO SCH (17:29)
[2017-11-16] MEDS: HYDROCHLOROTHIAZIDE 12.5 MG CAPSULE (FP) PO SCH (17:29)
[2017-11-16] MEDS ORDERED: MELATONIN 5 MG TABLETS PO PRN (22:00)
[2017-11-16] MEDS: chlordiazePOXIDE HCL 25 MG CAPSULE PO SCH (22:10)
[2017-11-16] MEDS: THIAMINE HCL 100 MG TABLET (FP) PO SCH (22:10)
[2017-11-17 02:04] LABS: URINE APPEARANCE TURBID; URINE BILIRUBIN NEGATIVE (<2.0 mg/dL); URINE BLOOD NEGATIVE (NEGATIVE); URINE COLOR YELLOW; URINE GLUCOSE (UA) 3+ (NEGATIVE); URINE KETONE NEGATIVE (NEGATIVE); URINE LEUK ESTERASE TRACE (NEGATIVE); URINE NITRITE NEGATIVE (NEGATIVE); URINE PROTEIN NEGATIVE (NEGATIVE)
[2017-11-17 02:32] LABS: URINE MUCUS RARE; YEAST MANY
[2017-11-17] MEDS: chlordiazePOXIDE HCL 25 MG CAPSULE PO SCH ×4 (05:13→22:14)
--- NOTE | 2017-11-17 09:37 | EKG ---
Test Reason : Blood Pressure : / mmHG Vent. Rate : 075 BPM Atrial Rate : 075 BPM P-R Int : 176 ms QRS Dur : 104 ms QT Int : 406 ms P-R-T Axes : 053 -24 120 degrees QTc Int : 453 ms NORMAL SINUS RHYTHM POSSIBLE LEFT ATRIAL ENLARGEMENT INCOMPLETE RIGHT BUNDLE BRANCH BLOCK LEFT VENTRICULAR HYPERTROPHY MARKED T WAVE ABNORMALITY, CONSIDER LATERAL ISCHEMIA ABNORMAL ECG WHEN COMPARED WITH ECG OF 19-NOV-2016 16:06, ST MORE ELEVATED IN ANTERIOR LEADS T WAVE INVERSION MORE EVIDENT IN LATERAL LEADS Confirmed by GURPREET ARAGON MD ([id number]) on 11/17/2017 9:36:52 AM Referred By: Confirmed By:GURPREET ARAGON MD
[2017-11-17 09:57] LABS: ALBUMIN 3.2 g/dl (3.4-5.0); ANION GAP 5 (8-16); BLOOD UREA NITROGEN 15 mg/dL (7-18); CALCIUM 8.3 mg/dL (8.5-10.1); CHLORIDE 108 mmol/L (98-107); CO2 31 mmol/L (21-32); GLUCOSE,RANDOM 112 mg/dL (74-106); POTASSIUM 3.7 mmol/L (3.5-5.1); SGOT/AST 12 U/L (15-37); SGPT/ALT 18 U/L (12-78); SODIUM 144 mmol/L (136-145)
[2017-11-17 09:59] LABS: ALK PHOS 53 U/L (45-117); BILIRUBIN,TOTAL 0.3 mg/dL (0.2-1.0); HEMATOCRIT 42.9 % (35.4-49); MCH 29.4 pg (25.7-33.7); MCHC 32.7 g/dl (32.0-35.9); MEAN CELL VOLUME 89.9 fl (80-96); MEAN PLT VOLUME 9.7 fl (7.5-11.1); PLATELET COUNT 159 K/MM3 (134-434); RBC 4.77 M/mm3 (4.00-5.60); RDW 14.1 % (11.9-15.9); TOT PROT 6.2 g/dl (6.4-8.2); WHITE BLOOD COUNT 4.6 K/mm3 (4.0-10.0)
[2017-11-17] MEDS ORDERED: HYDROCHLOROTHIAZIDE 12.5 MG CAPSULE (FP) PO SCH (10:00)
[2017-11-17] MEDS ORDERED: LISINOPRIL 10 MG TABLET (FP) PO SCH (10:00)
[2017-11-17] MEDS: PRENATAL VITAMINS W/ FOLIC ACID TABLET (FP) PO SCH (10:11)
[2017-11-17] MEDS: LISINOPRIL 10 MG TABLET (FP) PO SCH (10:11)
[2017-11-17] MEDS: HYDROCHLOROTHIAZIDE 12.5 MG CAPSULE (FP) PO SCH (10:11)
[2017-11-17] MEDS: ASPIRIN 81 MG CHEWABLE TABLETS PO SCH (10:11)
[2017-11-17] MEDS ORDERED: LISINOPRIL 10 MG TABLET (FP) PO ONE (12:02)
--- NOTE | 2017-11-17 12:08 | PN ---
[facility] CIWA - CIWA Score Nausea/Vomitin-No Nausea/No Vomiting Muscle Tremors: 4-Moderate,w/Arms Extend Anxiety: 4-Mod. Anxious/Guarded Agitation: 2 Paroxysmal Sweats: 3 Orientation: 0-Oriented Tacttile Disturbances: 3-Moderate Itch/Numb/Burn Auditory Disturbances: 0-None Visual Disturbances: 0-None Headache: 0-None Present CIWA-Ar Total Score: 16 BHS Progress Note (SOAP) Subjective: Tremors, Fatigue, Anxious, Sweating. Objective: PATIENT A & O X 3. NO ACUTE DISTRESS. PATIENT DENIES CHEST PAIN. 11/17/17 12:05 Vital Signs Temperature 97.5 F L 11/17/17 09:03 Pulse Rate 74 11/17/17 09:03 Respiratory Rate 18 11/17/17 09:03 Blood Pressure 153/88 11/17/17 09:03 O2 Sat by Pulse Oximetry (%) Laboratory Tests 11/17/17 11/17/17 11/17/17 00:05 08:00 08:00 WBC 4.6 RBC 4.77 Hgb 14.0 Hct 42.9 MCV 89.9 MCH 29.4 MCHC 32.7 RDW 14.1 Plt Count 159 MPV 9.7 Sodium Potassium Chloride Carbon Dioxide Anion Gap BUN Creatinine Creat Clearance w eGFR Random Glucose Calcium Total Bilirubin AST ALT Alkaline Phosphatase Total Protein Albumin Urine Color Yellow Urine Appearance Turbid Urine pH 5.0 D Ur Specific [place] 1.026 Urine Protein Negative Urine Glucose (UA) 3+ H Urine Ketones Negative Urine Blood Negative Urine Nitrite Negative Urine Bilirubin Negative Urine Urobilinogen 2.0 Ur Leukocyte Esterase Trace Urine WBC (Auto) 82 Urine RBC (Auto) None Urine Mucus Rare Urine Yeast Many HIV 1&2 Antibody Screen Negative HIV P24 Antigen Negative 11/17/17 08:00 WBC RBC Hgb Hct MCV MCH MCHC RDW Plt Count MPV Sodium 144 Potassium 3.7 Chloride 108 H Carbon Dioxide 31 Anion Gap 5 L BUN 15 D Creatinine 1.0 Creat Clearance w eGFR > 60 Random Glucose 112 H Calcium 8.3 L Total Bilirubin 0.3 D AST 12 L ALT 18 D Alkaline Phosphatase 53 Total Protein 6.2 L Albumin 3.2 L Urine Color Urine Appearance Urine pH Ur Specific [place] Urine Protein Urine Glucose (UA) Urine Ketones Urine Blood Urine Nitrite Urine Bilirubin Urine Urobilinogen Ur Leukocyte Esterase Urine WBC (Auto) Urine RBC (Auto) Urine Mucus Urine Yeast HIV 1&2 Antibody Screen HIV P24 Antigen LABS NOTED. Assessment: 11/17/17 12:06 WITHDRAWAL SYMPTOMS. HYPERTENSION. 11/17/17 12:08 Plan: CONTINUE DETOX. REPEAT UA FOR ADMISSION ABNORMALITIES. BGM ACBK FOR ELEVATED ADMISSION RANDOM GLUCOSE LEVEL AND FOR ELEVATED ADMISSION UA GLUCOSE LEVEL. INCREASE LISINOPRIL TO 20 MG PO DAILY FOR ELEVATED BP. CONTINUE TO MONITOR BP. ENCOURAGE AMBULATION.
--- NOTE | 2017-11-17 13:53 | CONSULT ---
[facility] Psychiatric Consult - Data Date of interview: 11/17/17 Admission source: [facility] Identifying data: One of several admissions to [facility] for this 52 y/o AA male seeking detox treatment on for alcohol,cocaine and marijuana dependence.Patient is single,a father of one,homeless (retirement),unemployed and supported on [facility] benefits. Substance Abuse History: Confirmed by patient in this interiewSmoking history: Current every day smoker. Have you smoked in the past 12 months: No. Aproximately how many cigarettes per day: 3. If you are a former smoker, when did you quit?: 07/22/13. Cigars Per Day: 0. Hx Chewing Tobacco Use: No. Initiated information on smoking cessation: Yes. 'Breaking Loose' booklet given : 11/16/17. - Substance & Tx. History. Hx Alcohol Use: Yes. Hx Substance Use : Yes. Substance Use Type: Alcohol, Cocaine. Hx Substance Use Treatment: Yes ( 11/2016 [facility]). - Substances Abused. Crack. Route: Smoking. Frequency : 3-6 times per week. Amount used: $100-150. Age of first use: 44. Date of Last Use: 11/15/17. Alcohol-vodka/beer. Route: Oral. Frequency: Daily. Amount used: 2 pts./1-6 pk. Age of first use: 10. Date of Last Use: 11/16/17. Marijuana. Route: Smoking. Frequency: 3-6 times per week. Amount used: 1 joint. Age of first use: 14. Date of Last Use: 11/15/17 Medical History: Hypertension and obesity.Positive PPD. Psychiatric History: History of multiple psychiatric hospitalizations mostly at [facility].Diagnosed with Schizoaffective Disorder.Prescibed seroquel 300 mg/hs + zoloft 100 mg/day.Not taken for weeks." I had stopped taking zoloft but I take the seroquel once in a while.I don't want to mix psychiatric medications with street drugs,you know." Mr Brasher indicates that he is known to [facility] where he used to go for follow up.Last seen a month ago at the [facility] OPD clinic (self-report).History of one suicide attempt (2005) via ingestion of an household detergent (chlorox). Physical/Sexual Abuse/Trauma History: Patient declines to discuss this domain. Additional Comment: Urine Drug Screen Results: THC-Marijuana, MELISA-Cocaine.Noted. Mental Status Exam - Mental Status Exam Alert and Oriented to: Time, Place, Person Cognitive Function: Good Patient Appearance: Well Groomed Mood: Withdrawn Affect: Appropriate, Normal Range Patient Behavior: Fatigued, Appropriate, Cooperative Speech Pattern: Clear, Appropriate Voice Loudness: Normal Thought Process: Intact, Goal Oriented Thought Disorder: Not Present Hallucinations: Denies Suicidal Ideation: Denies Homicidal Ideation: Denies Insight/Judgement: Poor Sleep: Poorly, Difficulty falling asleep Appetite: Good Muscle strength/Tone: Normal Gait/Station: Normal Psychiatric Findings - Problem List (Issue 1, 2,3) (1) Alcohol dependence with uncomplicated withdrawal Current Visit: Yes Status: Acute (2) Cocaine dependence Current Visit: Yes Status: Acute (3) Cannabis dependence Current Visit: Yes Status: Acute (4) Nicotine dependence Current Visit: Yes Status: Acute Qualifiers: Nicotine product type: cigarettes Substance use status: in withdrawal Qualified Code(s): F17.213 - Nicotine dependence, cigarettes, with withdrawal (5) Schizoaffective disorder Current Visit: Yes Status: Chronic (6) Substance induced mood disorder Current Visit: Yes Status: Acute (7) Insomnia Current Visit: Yes Status: Acute - Initial Treatment Plan Initial Treatment Plan: Psychoeducation.Sleep hygiene.Detoxification in progress.Patient declines to resume sertraline.Seroquel 100 mg po hs.Ordered.Side effects/benefits are discussed with the patient.Mr Brasher agrees with this careplan.Observation.
[2017-11-17 17:34] LABS: URINE APPEARANCE CLEAR; URINE BILIRUBIN NEGATIVE (<2.0 mg/dL); URINE BLOOD NEGATIVE (NEGATIVE); URINE COLOR LTYELLOW; URINE GLUCOSE (UA) NEGATIVE (NEGATIVE); URINE KETONE NEGATIVE (NEGATIVE); URINE LEUK ESTERASE TRACE (NEGATIVE); URINE NITRITE NEGATIVE (NEGATIVE); URINE PROTEIN NEGATIVE (NEGATIVE)
[2017-11-17 17:48] LABS: EPI CELLS RARE /HPF (FEW)
[2017-11-17] MEDS ORDERED: HYDROCHLOROTHIAZIDE 12.5 MG CAPSULE (FP) PO ONE (19:29)
--- NOTE | 2017-11-17 19:31 | PN ---
[facility] Progress Note Note: Vital Signs (72 hours) 11/16/17 11/16/17 11/16/17 14:44 18:08 22:22 Temperature 96.9 F L 97.9 F 97.0 F L Pulse Rate 76 73 76 Respiratory 20 18 16 Rate Blood Pressure 162/98 149/104 152/96 11/17/17 11/17/17 11/17/17 00:30 06:07 09:03 Temperature 97.5 F L 97.5 F L Pulse Rate 64 74 Respiratory 20 18 18 Rate Blood Pressure 151/100 153/88 11/17/17 11/17/17 13:56 18:50 Temperature 97.8 F 97.9 F Pulse Rate 78 73 Respiratory 18 20 Rate Blood Pressure 145/99 158/100 Patient with asymptomatic elevate BP. BP during current stay has been elevated Plan: Increase fluids Give Librium 25 mg One time dose HCTZ 12.5mg to = 25mg for the day Increase HCTZ from 12.5mg to 25 mg qd Continue to monitor
[2017-11-17] MEDS: QUEtiapine FUMARATE 100 MG TABLET (FP) PO SCH (22:14)
[2017-11-17] MEDS: THIAMINE HCL 100 MG TABLET (FP) PO SCH (22:14)
[2017-11-18] MEDS: chlordiazePOXIDE HCL 25 MG CAPSULE PO SCH ×3 (05:16→17:45)
[2017-11-18] MEDS ORDERED: LISINOPRIL 20 MG TABLET (FP) PO SCH (10:00)
[2017-11-18] MEDS: HYDROCHLOROTHIAZIDE 25 MG TABLET (FP) PO SCH (10:11)
[2017-11-18] MEDS: ASPIRIN 81 MG CHEWABLE TABLETS PO SCH (10:11)
[2017-11-18] MEDS: PRENATAL VITAMINS W/ FOLIC ACID TABLET (FP) PO SCH (10:11)
--- NOTE | 2017-11-18 15:32 | PN ---
[facility] CIWA - CIWA Score Nausea/Vomitin-No Nausea/No Vomiting Muscle Tremors: 2 Anxiety: 4-Mod. Anxious/Guarded Agitation: 3 Paroxysmal Sweats: 3 Orientation: 0-Oriented Tacttile Disturbances: 2-Mild Itch/Numbness/Burn Auditory Disturbances: 0-None Visual Disturbances: 2-Mild Sensitivity Headache: 0-None Present CIWA-Ar Total Score: 16 BHS Progress Note (SOAP) Subjective: Anxious, Tremors, Sweating, Interrupted Sleep. Objective: PATIENT A & O X 3, OBSERVED AMBULATING ON UNIT. NO ACUTE DISTRESS. PATIENT DENIES CHEST PAIN. 11/18/17 15:30 Vital Signs Temperature 98.1 F 11/18/17 14:53 Pulse Rate 77 11/18/17 14:53 Respiratory Rate 18 11/18/17 14:53 Blood Pressure 141/89 11/18/17 14:53 O2 Sat by Pulse Oximetry (%) Laboratory Tests 11/17/17 11/17/17 11/17/17 00:05 08:00 08:00 WBC 4.6 RBC 4.77 Hgb 14.0 Hct 42.9 MCV 89.9 MCH 29.4 MCHC 32.7 RDW 14.1 Plt Count 159 MPV 9.7 Sodium Potassium Chloride Carbon Dioxide Anion Gap BUN Creatinine Creat Clearance w eGFR POC Glucometer Random Glucose Calcium Total Bilirubin AST ALT Alkaline Phosphatase Total Protein Albumin Urine Color Yellow Urine Appearance Turbid Urine pH 5.0 D Ur Specific [place] 1.026 Urine Protein Negative Urine Glucose (UA) 3+ H Urine Ketones Negative Urine Blood Negative Urine Nitrite Negative Urine Bilirubin Negative Urine Urobilinogen 2.0 Ur Leukocyte Esterase Trace Urine WBC (Auto) 82 Urine RBC (Auto) None Ur Epithelial Cells Urine Mucus Rare Urine Yeast Many RPR Titer HIV 1&2 Antibody Screen Negative HIV P24 Antigen Negative 11/17/17 11/17/17 11/17/17 08:00 08:00 14:00 WBC RBC Hgb Hct MCV MCH MCHC RDW Plt Count MPV Sodium 144 Potassium 3.7 Chloride 108 H Carbon Dioxide 31 Anion Gap 5 L BUN 15 D Creatinine 1.0 Creat Clearance w eGFR > 60 POC Glucometer Random Glucose 112 H Calcium 8.3 L Total Bilirubin 0.3 D AST 12 L ALT 18 D Alkaline Phosphatase 53 Total Protein 6.2 L Albumin 3.2 L Urine Color Ltyellow Urine Appearance Clear Urine pH 7.0 D Ur Specific [place] 1.015 Urine Protein Negative Urine Glucose (UA) Negative Urine Ketones Negative Urine Blood Negative Urine Nitrite Negative Urine Bilirubin Negative Urine Urobilinogen 2.0 Ur Leukocyte Esterase Trace Urine WBC (Auto) None seen Urine RBC (Auto) None seen Ur Epithelial Cells Rare Urine Mucus Urine Yeast RPR Titer Nonreactive HIV 1&2 Antibody Screen HIV P24 Antigen 11/18/17 05:15 WBC RBC Hgb Hct MCV MCH MCHC RDW Plt Count MPV Sodium Potassium Chloride Carbon Dioxide Anion Gap BUN Creatinine Creat Clearance w eGFR POC Glucometer 108 Random Glucose Calcium Total Bilirubin AST ALT Alkaline Phosphatase Total Protein Albumin Urine Color Urine Appearance Urine pH Ur Specific [place] Urine Protein Urine Glucose (UA) Urine Ketones Urine Blood Urine Nitrite Urine Bilirubin Urine Urobilinogen Ur Leukocyte Esterase Urine WBC (Auto) Urine RBC (Auto) Ur Epithelial Cells Urine Mucus Urine Yeast RPR Titer HIV 1&2 Antibody Screen HIV P24 Antigen LABS NOTED. Assessment: 11/18/17 15:30 WITHDRAWAL SYMPTOMS. HYPERTENSION. 11/18/17 15:31 Plan: CONTINUE DETOX. INCREASE LISINOPRIL TO 20 MG PO BID FOR PERSISTENTLY ELEVATED BP.
[2017-11-18] MEDS: chlordiazePOXIDE 5 MG CAPSULE PO SCH (22:11)
[2017-11-18] MEDS: QUEtiapine FUMARATE 100 MG TABLET (FP) PO SCH (22:11)
[2017-11-18] MEDS: LISINOPRIL 20 MG TABLET (FP) PO SCH (22:11)
[2017-11-18] MEDS: THIAMINE HCL 100 MG TABLET (FP) PO SCH (22:11)
[2017-11-19] MEDS: chlordiazePOXIDE 5 MG CAPSULE PO SCH ×3 (05:17→17:54)
[2017-11-19] MEDS: PRENATAL VITAMINS W/ FOLIC ACID TABLET (FP) PO SCH (10:10)
[2017-11-19] MEDS: ASPIRIN 81 MG CHEWABLE TABLETS PO SCH (10:10)
[2017-11-19] MEDS: LISINOPRIL 20 MG TABLET (FP) PO SCH ×2 (10:10→21:46)
[2017-11-19] MEDS: HYDROCHLOROTHIAZIDE 25 MG TABLET (FP) PO SCH (10:10)
--- NOTE | 2017-11-19 10:52 | PN ---
B[facility] Progress Note (SOAP) Subjective: anxiety sweats I want to be d/c on Monday Objective: 11/19/17 10:51 Vital Signs Temperature 97.6 F 11/19/17 06:06 Pulse Rate 74 11/19/17 06:06 Respiratory Rate 18 11/19/17 06:06 Blood Pressure 152/96 11/19/17 06:06 O2 Sat by Pulse Oximetry (%) [id number] ambulating no acute distress Assessment: 11/19/17 10:52 withdrawal sx Plan: continue detox increase fluids
[2017-11-19] MEDS: THIAMINE HCL 100 MG TABLET (FP) PO SCH (21:45)
[2017-11-19] MEDS: QUEtiapine FUMARATE 100 MG TABLET (FP) PO SCH (21:46)
[2017-11-19] MEDS: chlordiazePOXIDE HCL 10 MG CAPSULE PO SCH (23:05)
[2017-11-20] MEDS: chlordiazePOXIDE HCL 10 MG CAPSULE PO SCH ×3 (07:10→17:26)
[2017-11-20] MEDS: ASPIRIN 81 MG CHEWABLE TABLETS PO SCH (10:05)
[2017-11-20] MEDS: LISINOPRIL 20 MG TABLET (FP) PO SCH ×2 (10:05→22:03)
[2017-11-20] MEDS: PRENATAL VITAMINS W/ FOLIC ACID TABLET (FP) PO SCH (10:05)
[2017-11-20] MEDS: HYDROCHLOROTHIAZIDE 25 MG TABLET (FP) PO SCH (10:05)
--- NOTE | 2017-11-20 13:15 | PN ---
[facility] Progress Note (SOAP) Subjective: Sweating, Anxious. Objective: PATIENT A & O X 3, OBSERVED AMBULATING ON UNIT. NO ACUTE DISTRESS. Vital Signs Temperature 96.7 F L 11/20/17 09:23 Pulse Rate 83 11/20/17 09:23 Respiratory Rate 18 11/20/17 09:23 Blood Pressure 155/98 11/20/17 09:23 O2 Sat by Pulse Oximetry (%) Laboratory Tests 11/17/17 11/17/17 11/17/17 00:05 08:00 08:00 WBC 4.6 RBC 4.77 Hgb 14.0 Hct 42.9 MCV 89.9 MCH 29.4 MCHC 32.7 RDW 14.1 Plt Count 159 MPV 9.7 Sodium Potassium Chloride Carbon Dioxide Anion Gap BUN Creatinine Creat Clearance w eGFR POC Glucometer Random Glucose Calcium Total Bilirubin AST ALT Alkaline Phosphatase Total Protein Albumin Urine Color Yellow Urine Appearance Turbid Urine pH 5.0 D Ur Specific [place] 1.026 Urine Protein Negative Urine Glucose (UA) 3+ H Urine Ketones Negative Urine Blood Negative Urine Nitrite Negative Urine Bilirubin Negative Urine Urobilinogen 2.0 Ur Leukocyte Esterase Trace Urine WBC (Auto) 82 Urine RBC (Auto) None Ur Epithelial Cells Urine Mucus Rare Urine Yeast Many RPR Titer HIV 1&2 Antibody Screen Negative HIV P24 Antigen Negative 11/17/17 11/17/17 11/17/17 08:00 08:00 14:00 WBC RBC Hgb Hct MCV MCH MCHC RDW Plt Count MPV Sodium 144 Potassium 3.7 Chloride 108 H Carbon Dioxide 31 Anion Gap 5 L BUN 15 D Creatinine 1.0 Creat Clearance w eGFR > 60 POC Glucometer Random Glucose 112 H Calcium 8.3 L Total Bilirubin 0.3 D AST 12 L ALT 18 D Alkaline Phosphatase 53 Total Protein 6.2 L Albumin 3.2 L Urine Color Ltyellow Urine Appearance Clear Urine pH 7.0 D Ur Specific [place] 1.015 Urine Protein Negative Urine Glucose (UA) Negative Urine Ketones Negative Urine Blood Negative Urine Nitrite Negative Urine Bilirubin Negative Urine Urobilinogen 2.0 Ur Leukocyte Esterase Trace Urine WBC (Auto) None seen Urine RBC (Auto) None seen Ur Epithelial Cells Rare Urine Mucus Urine Yeast RPR Titer Nonreactive HIV 1&2 Antibody Screen HIV P24 Antigen 11/18/17 11/19/17 11/20/17 05:15 05:16 05:34 WBC RBC Hgb Hct MCV MCH MCHC RDW Plt Count MPV Sodium Potassium Chloride Carbon Dioxide Anion Gap BUN Creatinine Creat Clearance w eGFR POC Glucometer 108 127 104 Random Glucose Calcium Total Bilirubin AST ALT Alkaline Phosphatase Total Protein Albumin Urine Color Urine Appearance Urine pH Ur Specific [place] Urine Protein Urine Glucose (UA) Urine Ketones Urine Blood Urine Nitrite Urine Bilirubin Urine Urobilinogen Ur Leukocyte Esterase Urine WBC (Auto) Urine RBC (Auto) Ur Epithelial Cells Urine Mucus Urine Yeast RPR Titer HIV 1&2 Antibody Screen HIV P24 Antigen LABS NOTED. 11/20/17 13:12 Assessment: 11/20/17 13:12 WITHDRAWAL SYMPTOMS. HYPERTENSION. 11/20/17 13:16 Plan: CONTINUE DETOX. HCTZ, ADDITIONAL 25 MG PO ORDERED FOR PERSISTENTLY ELEVATED BP. IN ORDER TO HELP FACILITATE POST-DISCHARGE AFTERCARE ARRANGEMENTS, PATIENT REQUESTS TO BE DISCHARGED TOMORROW AM.
[2017-11-20] MEDS ORDERED: HYDROCHLOROTHIAZIDE 25 MG TABLET (FP) PO ONE (13:45)
[2017-11-20] MEDS: THIAMINE HCL 100 MG TABLET (FP) PO SCH (22:03)
[2017-11-20] MEDS: QUEtiapine FUMARATE 100 MG TABLET (FP) PO SCH (22:03)
[2017-11-21 06:04] VITALS: BP 131/80; PULSE 65; TEMP 97.2
--- NOTE | 2017-11-21 15:47 | PN ---
S Progress Note (SOAP) Subjective: Patient denies current Detox symptoms and reports that he feels well overall. Objective: PATIENT A & O X 3, OBSERVED AMBULATING ON UNIT. NO ACUTE DISTRESS. 11/21/17 15:45 Vital Signs Temperature 97.2 F L 11/21/17 06:03 Pulse Rate 65 11/21/17 06:03 Respiratory Rate 18 11/21/17 06:03 Blood Pressure 131/80 11/21/17 06:03 O2 Sat by Pulse Oximetry (%) Laboratory Tests 11/17/17 11/17/17 11/17/17 00:05 08:00 08:00 WBC 4.6 RBC 4.77 Hgb 14.0 Hct 42.9 MCV 89.9 MCH 29.4 MCHC 32.7 RDW 14.1 Plt Count 159 MPV 9.7 Sodium Potassium Chloride Carbon Dioxide Anion Gap BUN Creatinine Creat Clearance w eGFR POC Glucometer Random Glucose Calcium Total Bilirubin AST ALT Alkaline Phosphatase Total Protein Albumin Urine Color Yellow Urine Appearance Turbid Urine pH 5.0 D Ur Specific [place] 1.026 Urine Protein Negative Urine Glucose (UA) 3+ H Urine Ketones Negative Urine Blood Negative Urine Nitrite Negative Urine Bilirubin Negative Urine Urobilinogen 2.0 Ur Leukocyte Esterase Trace Urine WBC (Auto) 82 Urine RBC (Auto) None Ur Epithelial Cells Urine Mucus Rare Urine Yeast Many RPR Titer HIV 1&2 Antibody Screen Negative HIV P24 Antigen Negative 11/17/17 11/17/17 11/17/17 08:00 08:00 14:00 WBC RBC Hgb Hct MCV MCH MCHC RDW Plt Count MPV Sodium 144 Potassium 3.7 Chloride 108 H Carbon Dioxide 31 Anion Gap 5 L BUN 15 D Creatinine 1.0 Creat Clearance w eGFR > 60 POC Glucometer Random Glucose 112 H Calcium 8.3 L Total Bilirubin 0.3 D AST 12 L ALT 18 D Alkaline Phosphatase 53 Total Protein 6.2 L Albumin 3.2 L Urine Color Ltyellow Urine Appearance Clear Urine pH 7.0 D Ur Specific [place] 1.015 Urine Protein Negative Urine Glucose (UA) Negative Urine Ketones Negative Urine Blood Negative Urine Nitrite Negative Urine Bilirubin Negative Urine Urobilinogen 2.0 Ur Leukocyte Esterase Trace Urine WBC (Auto) None seen Urine RBC (Auto) None seen Ur Epithelial Cells Rare Urine Mucus Urine Yeast RPR Titer Nonreactive HIV 1&2 Antibody Screen HIV P24 Antigen 11/18/17 11/19/1711/20/18 05:15 05:16 05:34 WBC RBC Hgb Hct MCV MCH MCHC RDW Plt Count MPV Sodium Potassium Chloride Carbon Dioxide Anion Gap BUN Creatinine Creat Clearance w eGFR POC Glucometer 108 127 104 Random Glucose Calcium Total Bilirubin AST ALT Alkaline Phosphatase Total Protein Albumin Urine Color Urine Appearance Urine pH Ur Specific [place] Urine Protein Urine Glucose (UA) Urine Ketones Urine Blood Urine Nitrite Urine Bilirubin Urine Urobilinogen Ur Leukocyte Esterase Urine WBC (Auto) Urine RBC (Auto) Ur Epithelial Cells Urine Mucus Urine Yeast RPR Titer HIV 1&2 Antibody Screen HIV P24 Antigen 11/21/17 06:11 WBC RBC Hgb Hct MCV MCH MCHC RDW Plt Count MPV Sodium Potassium Chloride Carbon Dioxide Anion Gap BUN Creatinine Creat Clearance w eGFR POC Glucometer 116 Random Glucose Calcium Total Bilirubin AST ALT Alkaline Phosphatase Total Protein Albumin Urine Color Urine Appearance Urine pH Ur Specific [place] Urine Protein Urine Glucose (UA) Urine Ketones Urine Blood Urine Nitrite Urine Bilirubin Urine Urobilinogen Ur Leukocyte Esterase Urine WBC (Auto) Urine RBC (Auto) Ur Epithelial Cells Urine Mucus Urine Yeast RPR Titer HIV 1&2 Antibody Screen HIV P24 Antigen LABS NOTED. Assessment: 11/21/17 15:46 COMPLETION OF DETOX REGIMEN. Plan: PATIENT SCHEDULED FOR DISCHARGE FROM DETOX UNIT TODAY.
--- NOTE | 2017-11-21 15:52 | DS ---
[facility] Detox Discharge Summary Admission Date: 11/16/17 Discharge Date: 11/21/17 - History Present History: Alcohol Dependence, Cannabis Dependence, Cocaine Dependence Additional Comments: PATIENT GOING HOME, NOTES THAT HE WILL PURSUE LOCAL 12-STEP / AA OUTPATIENT SUPPORT GROUPS FOR AFTERCARE. PATIENT WAS DISCHARGED FROM DETOX UNIT IN STABLE MEDICAL CONDITION. Pertinent Past History: History of Positive PPD, HTN, Nicotine Dependence, History of Irregular Heart Rate, Depression, Insomnia, Schizoaffective Disorder, Bipolar Disorder. - Physical Exam Results Vital Signs: Vital Signs Temperature 97.2 F L 11/21/17 06:03 Pulse Rate 65 11/21/17 06:03 Respiratory Rate 18 11/21/17 06:03 Blood Pressure 131/80 11/21/17 06:03 O2 Sat by Pulse Oximetry (%) Pertinent Admission Physical Exam Findings: WITHDRAWAL SYMPTOMS. Laboratory Tests 11/17/17 11/17/17 11/17/17 00:05 08:00 08:00 WBC 4.6 RBC 4.77 Hgb 14.0 Hct 42.9 MCV 89.9 MCH 29.4 MCHC 32.7 RDW 14.1 Plt Count 159 MPV 9.7 Sodium Potassium Chloride Carbon Dioxide Anion Gap BUN Creatinine Creat Clearance w eGFR POC Glucometer Random Glucose Calcium Total Bilirubin AST ALT Alkaline Phosphatase Total Protein Albumin Urine Color Yellow Urine Appearance Turbid Urine pH 5.0 D Ur Specific [place] 1.026 Urine Protein Negative Urine Glucose (UA) 3+ H Urine Ketones Negative Urine Blood Negative Urine Nitrite Negative Urine Bilirubin Negative Urine Urobilinogen 2.0 Ur Leukocyte Esterase Trace Urine WBC (Auto) 82 Urine RBC (Auto) None Ur Epithelial Cells Urine Mucus Rare Urine Yeast Many RPR Titer HIV 1&2 Antibody Screen Negative HIV P24 Antigen Negative 11/17/17 11/17/17 11/17/17 08:00 08:00 14:00 WBC RBC Hgb Hct MCV MCH MCHC RDW Plt Count MPV Sodium 144 Potassium 3.7 Chloride 108 H Carbon Dioxide 31 Anion Gap 5 L BUN 15 D Creatinine 1.0 Creat Clearance w eGFR > 60 POC Glucometer Random Glucose 112 H Calcium 8.3 L Total Bilirubin 0.3 D AST 12 L ALT 18 D Alkaline Phosphatase 53 Total Protein 6.2 L Albumin 3.2 L Urine Color Ltyellow Urine Appearance Clear Urine pH 7.0 D Ur Specific [place] 1.015 Urine Protein Negative Urine Glucose (UA) Negative Urine Ketones Negative Urine Blood Negative Urine Nitrite Negative Urine Bilirubin Negative Urine Urobilinogen 2.0 Ur Leukocyte Esterase Trace Urine WBC (Auto) None seen Urine RBC (Auto) None seen Ur Epithelial Cells Rare Urine Mucus Urine Yeast RPR Titer Nonreactive HIV 1&2 Antibody Screen HIV P24 Antigen 11/18/17 11/19/17 11/20/17 05:15 05:16 05:34 WBC RBC Hgb Hct MCV MCH MCHC RDW Plt Count MPV Sodium Potassium Chloride Carbon Dioxide Anion Gap BUN Creatinine Creat Clearance w eGFR POC Glucometer 108 127 104 Random Glucose Calcium Total Bilirubin AST ALT Alkaline Phosphatase Total Protein Albumin Urine Color Urine Appearance Urine pH Ur Specific [place] Urine Protein Urine Glucose (UA) Urine Ketones Urine Blood Urine Nitrite Urine Bilirubin Urine Urobilinogen Ur Leukocyte Esterase Urine WBC (Auto) Urine RBC (Auto) Ur Epithelial Cells Urine Mucus Urine Yeast RPR Titer HIV 1&2 Antibody Screen HIV P24 Antigen 11/21/17 06:11 WBC RBC Hgb Hct MCV MCH MCHC RDW Plt Count MPV Sodium Potassium Chloride Carbon Dioxide Anion Gap BUN Creatinine Creat Clearance w eGFR POC Glucometer 116 Random Glucose Calcium Total Bilirubin AST ALT Alkaline Phosphatase Total Protein Albumin Urine Color Urine Appearance Urine pH Ur Specific [place] Urine Protein Urine Glucose (UA) Urine Ketones Urine Blood Urine Nitrite Urine Bilirubin Urine Urobilinogen Ur Leukocyte Esterase Urine WBC (Auto) Urine RBC (Auto) Ur Epithelial Cells Urine Mucus Urine Yeast RPR Titer HIV 1&2 Antibody Screen HIV P24 Antigen LABS NOTED. - Treatment Hospital Course: Detox Protocol Followed, Detoxed Safely, Responded well, Discharged Condition Good Patient has Accepted a Rehab Referral to: PT GOING HOME, WILL PURSUE LOCAL 12- STEP/AA OP SUPPORT GROUP ON HIS OWN. - Medication Discharge Medications: Ambulatory Orders Aspirin [ASA -] 81 mg PO DAILY #30 tab.chew 01/15/14 Quetiapine Fumarate [Seroquel -] 300 mg PO HS 11/19/16 Lisinopril/Hydrochlorothiazide [Lisinopril-Hctz 20-12.5 mg Tab] 1 each PO DAILY 11/16/17 Quetiapine Fumarate [Seroquel] 100 mg PO HS #30 tablet 11/17/17 - Diagnosis (1) Alcohol dependence with uncomplicated withdrawal Status: Acute (2) Nicotine dependence Status: Acute Qualifiers: Nicotine product type: cigarettes Substance use status: in withdrawal Qualified Code(s): F17.213 - Nicotine dependence, cigarettes, with withdrawal (3) Essential hypertension Status: Chronic (4) Depression (emotion) Status: Suspected Qualifiers: Depression Type: dysthymia Qualified Code(s): F34.1 - Dysthymic disorder (5) Irregular heart rate Status: Chronic (6) Positive PPD Status: Chronic (7) Cannabis dependence Status: Acute (8) Cocaine dependence Status: Acute (9) Insomnia Status: Acute Qualifiers: Insomnia type: unspecified Qualified Code(s): G47.00 - Insomnia, unspecified (10) Substance induced mood disorder Status: Acute (11) Schizoaffective disorder Status: Chronic Qualifiers: Schizoaffective disorder type: unspecified Qualified Code(s): F25.9 - Schizoaffective disorder, unspecified (12) PPD positive, treated Status: Resolved - AMA Did Patient Leave Against Medical Advice: No
== END 2017-11-21 08:22 | disposition home or self-care (01) | DRG 309 ==
LOC: YASAS 11:18 → Y3N 15:26
PROVIDERS: ADMIT Internal Medicine; ATTEND Internal Medicine
PROC: HZ2ZZZZ Detoxification Services for Substance Abuse Treatment (ICD-10-PCS; principal; 2017-11-16)
DX: I49.9 Cardiac arrhythmia, unspecified (principal); F10.230 Alcohol dependence with withdrawal, uncomplicated; F14.20 Cocaine dependence, uncomplicated; F17.213 Nicotine dependence, cigarettes, with withdrawal; F12.20 Cannabis dependence, uncomplicated; F19.24 Other psychoactive substance dependence with psychoactive substance-induced mood disorder; F25.9 Schizoaffective disorder, unspecified; F34.1 Dysthymic disorder; R76.11 Nonspecific reaction to tuberculin skin test without active tuberculosis; G47.00 Insomnia, unspecified
CPT/HCPCS: 36415; 71046-TC-FY; 80053; 81003; 81015; 82962; 85027; 86593; 87389; 93005; 93010

== ENCOUNTER 2018-10-26 16:16 | Inpatient (IN) | payer OTHER ==
[2018-10-26 18:43] VITALS: BMI 29.4
--- NOTE | 2018-10-26 20:34 | HP ---
CIWA Score Nausea/Vomitin-Mild Nausea/No Vomiting Muscle Tremors: 2 Anxiety: 4-Mod. Anxious/Guarded Agitation: 1-Slight > Activity Paroxysmal Sweats: No Perspiration Orientation: 0-Oriented Tacttile Disturbances: 3-Moderate Itch/Numb/Burn Auditory Disturbances: 0-None Visual Disturbances: 0-None Headache: 2-Mild CIWA-Ar Total Score: 13 - Admission Criteria OASAS Guidelines: Admission for Medically Managed Detox: Requires at least one of the followin. CIWA greater than 12 2. Seizures within the past 24 hours 3. Delirium tremens within the past 24 hours 4. Hallucinations within the past 24 hours 5. Acute intervention needed for co occurring medical disorder 6. Acute intervention needed for co occurring psychiatric disorder 7. Severe withdrawal that cannot be handled at a lower level of care (continued vomiting, continued diarrhea, abnormal vital signs) requiring intravenous medication and/or fluids 8. Admission ROS [facility] Chief Complaint: I came for alcohol detox Allergies/Adverse Reactions: Allergies Allergy/AdvReac Type Severity Reaction Status Date / Time No Known Drug Allergies Allergy Verified 10/26/18 19:01 History of Present Illness: A 53year old male with history of HTN, ETOH abuse, and crack/cocaine use came in for alcohol detox. Exam Limitations: No Limitations - Ebola screening Have you traveled outside of the country in the last 21 days: No (N) Have you had contact with anyone from an Ebola affected area: No Have you been sick,other than usual withdrawal symptoms: No Do you have a fever: No - Review of Systems Constitutional: Changes in sleep, Weakness, Unintentional Wgt. Loss EENT: reports: Recent change in vision (Blurry vision and c/o eye dryness) Respiratory: reports: No Symptoms reported Cardiac: reports: Other (h/o HTN) GI: reports: No Symptoms Reported : reports: No Symptoms Reported Musculoskeletal: reports: Muscle Pain, Muscle Weakness Integumentary: reports: Dryness Neuro: reports: Headache, Weakness Endocrine: reports: No Symptoms Reported Hematology: reports: No Symptoms Reported Psychiatric: reports: Orientated x3, Anxious, Depressed Patient History - Patient Medical History Hx Anemia: No Hx Asthma: No Hx Chronic Obstructive Pulmonary Disease (COPD): No Hx Cancer: No Hx Cardiac Disorders: No Hx Congestive Heart Failure: No Hx Hypertension: Yes Hx Hypercholesterolemia: No Hx Pacemaker: No HX Cerebrovascular Accident: No Hx Seizures: No Hx Dementia: No Hx Diabetes: No Hx Gastrointestinal Disorders: No Hx Liver Disease: No Hx Genitourinary Disorders: No Hx Sexually Transmitted Disorders: No Hx Renal Disease (ESRD): No Hx Thyroid Disease: No Hx Human Immunodeficiency Virus (HIV): No Hx Hepatitis C: No Hx Depression: Yes Hx Suicide Attempt: No Hx Bipolar Disorder: Yes (on meds seroquel 600 mg HS) Hx Schizophrenia: No - Patient Surgical History Past Surgical History: No Hx Neurologic Surgery: No Hx Cataract Extraction: No Hx Cardiac Surgery: No Hx Lung Surgery: No Hx Breast Surgery: No Hx Breast Biopsy: No Hx Abdominal Surgery: No Hx Appendectomy: No Hx Cholecystectomy: No Hx Genitourinary Surgery: No Hx Section: No Hx Orthopedic Surgery: No Anesthesia Reaction: No - PPD History Previous Implant?: Yes (Pt states tested positive in 1991 and has been doing xray) Results: cxr 11/2017 neg PPD to be Administered?: No - Smoking Cessation Smoking history: Current some day smoker Have you smoked in the past 12 months: Yes Aproximately how many cigarettes per day: 3 Cigars Per Day: 0 Hx Chewing Tobacco Use: No Initiated information on smoking cessation: Yes 'Breaking Loose' booklet given: 10/26/18 - Substance & Tx. History Hx Alcohol Use: Yes Hx Substance Use: Yes Substance Use Type: Alcohol, Cocaine, Marijuana Hx Substance Use Treatment: Yes (last detox about 6months ago) - Substances Abused Alcohol Route: Oral Frequency: Daily Amount used: liquor- 2 pints, beer- 1 six pack Age of first use: 10 Date of Last Use: 10/26/18 Crack Route: Smoking Frequency: Daily Amount used: 10 bags Age of first use: 41 Date of Last Use: 10/24/18 Marijuana/Hashish Route: Smoking Frequency: Daily Amount used: 2 joints Age of first use: 19 Date of Last Use: 10/26/18 Family Disease History - Family Disease History Family Disease History: Diabetes: Mother (alive, hx alcohol,HTN), Heart Disease : Mother, Sister (DRUGS,HTN), Other: Father (ALCOHOL,CANNABIS,), Mother , Sister Admission Physical Exam BHS - Vital Signs Vital Signs: Vital Signs - 24 hr 10/26/18 18:40 Temperature 99.0 F Pulse Rate 83 Respiratory 18 Rate Blood Pressure 178/102 H - Physical General Appearance: Yes: Appropriately Dressed, Tremorous, Anxious HEENTM: Yes: EOMI, Hearing grossly Normal, Normocephalic, Normal Voice, CELIA Respiratory: Yes: Chest Non-Tender, Lungs Clear, Normal Breath Sounds, No Respiratory Distress, No Accessory Muscle Use Neck: Yes: No masses,lesions,Nodules, Supple, Trachea in good position Breast: Yes: Within Normal Limits Cardiology: Yes: S1, S2 Abdominal: Yes: Within Normal Limits, Normal Bowel Sounds, Non Tender Genitourinary: Yes: Within Normal Limits Back: Yes: Within Normal Limits Musculoskeletal: Yes: Muscle Pain, Muscle weakness Extremities: Yes: Normal Capillary Refill, Normal Range of Motion, Non-Tender, Tremors Neurological: Yes: sales project engineer II-XII NML intact, Fully Oriented, Alert, Motor Strength 5/5, Numbness Integumentary: Yes: Normal Color, Dry, Warm Lymphatic: Yes: Within Normal Limits Cleared for Admission [facility] - Detox or Rehab [facility] Level of Care: Medically Managed Detox Regimen/Protocol: Librium Claeared for Rehab Admission: No [facility] Breath Alcohol Content Breath Alcohol Content: 0 Urine Drug Screen - Results Drug Screen Negative: No Urine Drug Screen Results: THC-Marijuana, MELISA-Cocaine Inpatient Rehab Admission - Rehab Decision to Admit Inpatient rehab admission?: No
[2018-10-26] MEDS ORDERED: guaiFENesin 200 MG/10 ML 10 ML UNIT-DOSE CUPS PO PRN (21:08)
[2018-10-26] MEDS ORDERED: DICYCLOMINE HCL 10 MG CAPSULE PO PRN (21:08)
[2018-10-26] MEDS ORDERED: MAGNESIUM HYDROX 2400MG/30ML ORAL SUSPENSION 30 ML CUP PO PRN (21:08)
[2018-10-26] MEDS ORDERED: MAG HYDROX/AL HYDROX/SIMETH 30 ML UNIT-DOSE CUP PO PRN (21:08)
[2018-10-26] MEDS ORDERED: MENTHOL/PHENOL 1 EACH UD MM PRN (21:08)
[2018-10-26] MEDS ORDERED: MAGNESIUM CITRATE 300 ML BOTTLE PO PRN (21:08)
[2018-10-26] MEDS ORDERED: hydrOXYzine PAMOATE 25 MG CAPSULE (FP) PO PRN (21:08)
[2018-10-26] MEDS ORDERED: NICOTINE POLACRILEX 2 MG GUM BUC PRN (21:08)
[2018-10-26] MEDS ORDERED: BISMUTH SUBSALICYLATE 524 MG/30 ML UD PO PRN (21:08)
[2018-10-26] MEDS ORDERED: IBUPROFEN 400 MG TABLET (FP) PO PRN (21:08)
[2018-10-26] MEDS ORDERED: ONDANSETRON *ODT* 4 MG TABLET SL PRN (21:08)
[2018-10-26] MEDS ORDERED: MELATONIN 5 MG TABLETS PO PRN (21:08)
[2018-10-26] MEDS ORDERED: METHOCARBAMOL 500 MG TABLET PO PRN (21:08)
[2018-10-26] MEDS ORDERED: ACETAMINOPHEN 325 MG TABLET (FP) PO PRN (21:08)
[2018-10-26] MEDS ORDERED: P-EPHED 60MG/TRIPROLIDI 2.5MG TABLET PO PRN (21:08)
[2018-10-26] MEDS ORDERED: chlordiazePOXIDE HCL 10 MG CAPSULE PO PRN (21:08)
[2018-10-26] MEDS: chlordiazePOXIDE HCL 25 MG CAPSULE PO SCH (21:40)
[2018-10-26] MEDS: THIAMINE HCL 100 MG TABLET (FP) PO SCH (21:47)
[2018-10-26] MEDS ORDERED: cloNIDine HCL 0.1 MG TABLET PO ONE (22:13)
[2018-10-27] MEDS: chlordiazePOXIDE HCL 25 MG CAPSULE PO SCH ×2 (05:25→12:36)
[2018-10-27] MEDS ORDERED: HYDROCHLOROTHIAZIDE 12.5 MG CAPSULE (FP) PO ONE ×2 (06:31→14:21)
[2018-10-27] MEDS ORDERED: LISINOPRIL 20 MG TABLET (FP) PO ONE (06:33)
[2018-10-27] MEDS ORDERED: HYDROCHLOROTHIAZIDE 12.5 MG CAPSULE (FP) PO SCH (10:00)
[2018-10-27] MEDS ORDERED: LISINOPRIL 20 MG TABLET (FP) PO SCH (10:00)
[2018-10-27] MEDS: ASPIRIN 81 MG CHEWABLE TABLETS PO SCH (10:49)
[2018-10-27] MEDS: PRENATAL VITAMINS W/ FOLIC ACID TABLET (FP) PO SCH (10:49)
[2018-10-27 10:52] LABS: ALK PHOS 59 U/L (45-117); ANION GAP 6 MMOL/L (8-16); BILIRUBIN,TOTAL 0.3 mg/dL (0.2-1); BLOOD UREA NITROGEN 14 mg/dL (7-18); CALCIUM 8.3 mg/dL (8.5-10.1); CHLORIDE 107 mmol/L (98-107); CO2 30 mmol/L (21-32); CREATININE 1.1 mg/dL (0.55-1.3); GLUCOSE,RANDOM 123 mg/dL (74-106); POTASSIUM 3.7 mmol/L (3.5-5.1); SGOT/AST 10 U/L (15-37); SGPT/ALT 17 U/L (13-61); SODIUM 143 mmol/L (136-145)
[2018-10-27 11:10] LABS: PH,URINE 6.5 (5.0-8.0); URINE APPEARANCE CLEAR; URINE BILIRUBIN NEGATIVE (<2.0 mg/dL); URINE COLOR YELLOW; URINE GLUCOSE (UA) NEGATIVE (NEGATIVE); URINE KETONE NEGATIVE (NEGATIVE); URINE LEUK ESTERASE NEGATIVE (NEGATIVE); URINE NITRITE NEGATIVE (NEGATIVE); URINE PROTEIN NEGATIVE (NEGATIVE)
[2018-10-27 11:12] LABS: HEMATOCRIT 40.2 % (35.4-49); HEMOGLOBIN 13.2 GM/dL (11.7-16.9); MCH 29.3 pg (25.7-33.7); MCHC 32.8 g/dl (32.0-35.9); MEAN CELL VOLUME 89.6 fl (80-96); PLATELET COUNT 151 K/MM3 (134-434); RBC 4.49 M/mm3 (4.00-5.60); RDW 14.1 % (11.9-15.9); WHITE BLOOD COUNT 3.9 K/mm3 (4.0-10.0)
--- NOTE | 2018-10-27 13:35 | CONSULT ---
[facility] Psychiatric Consult - Data Date of interview: 10/27/18 Admission source: [facility] Identifying data: Readmission to [facility] for this 53 y/o AA male self- referred for detoxification treatment (alcohol, cocaine, marijuana). Interviewed on . Patient is single, a father of one, homeless (m[facility]p), unemployed and supported on SSD benefits. Substance Abuse History: Confirmed by the oatient in his interview. Details in current [facility] report as follows : Smoking history: Current some day smoker. Have you smoked in the past 12 months: Yes. Aproximately how many cigarettes per day : 3. Cigars Per Day: 0. Hx Chewing Tobacco Use: No. Initiated information on smoking cessation: Yes. 'Breaking Loose' booklet given: 10/26/18. - Substance & Tx. History. Hx Alcohol Use: Yes. Hx Substance Use: Yes. Substance Use Type : Alcohol, Cocaine, Marijuana. Hx Substance Use Treatment: Yes (last detox about 6months ago). - Substances Abused. Alcohol. Route: Oral. Frequency : Daily. Amount used: liquor- 2 pints, beer- 1 six pack. Age of first use: 10. Date of Last Use: 10/26/18. Crack. Route: Smoking. Frequency: Daily. Amount used: 10 bags. Age of first use: 41. Date of Last Use: 10/24/18. Marijuana/Hashish. Route: Smoking. Frequency: Daily. Amount used: 2 joints. Age of first use: 19. Date of Last Use: 10/26/18 Medical History: Remarkable for hypertension, and history of positive PPD ( treated in 1991 with INH + B6 for six months). Psychiatric History: Patient presents with a history of multiple psychiatric hospitalizations, mostly at [facility]. Endorses the diagnoses of Schizoaffective Disorder and PTSD. Mr Sameera masters used to be prescribed seroquel 300 mg/hs + zoloft 100 mg/day. He reports an enduring history of non-adherence to his medications + total disregard for his scheduled appointments at the [facility] OPD clinic. Patient declares that he has not taken his medications for, at least, three weeks. " It could be more, I am not sure. When I feel the need for seroquel, I buy pills from street guys ". History of one suicide attempt (2005) via ingestion of an household detergent ( chlorox). Physical/Sexual Abuse/Trauma History: Heavy history of trauma : more than 20 cumulative years in nursing home (eight years in solitary confinement, as per self- report). Offenses : not disclosed by the patient. Not on parole or probation. Additional Comment: Urine Drug Screen Results: THC-Marijuana, MELISA-Cocaine. Noted. Mental Status Exam - Mental Status Exam Alert and Oriented to: Time, Place, Person Cognitive Function: Good Patient Appearance: Well Groomed (muscular built) Mood: Hopeful, Euthymic Affect: Appropriate, Normal Range Patient Behavior: Appropriate, Cooperative Speech Pattern: Clear, Appropriate Voice Loudness: Normal Thought Process: Goal Oriented Thought Disorder: Not Present Hallucinations: Denies Suicidal Ideation: Denies Homicidal Ideation: Denies Insight/Judgement: Poor Sleep: Poorly, Difficulty falling asleep Appetite: Good Muscle strength/Tone: Normal Gait/Station: Normal Psychiatric Findings - Problem List ([place] 1, 2,3) (1) Alcohol dependence with uncomplicated withdrawal Current Visit: Yes Status: Acute (2) Cannabis dependence Current Visit: Yes Status: Chronic (3) Cocaine dependence Current Visit: Yes Status: Chronic (4) Nicotine dependence Current Visit: Yes Status: Chronic Qualifiers: Nicotine product type: cigarettes Substance use status: in withdrawal Qualified Code(s): F17.213 - Nicotine dependence, cigarettes, with withdrawal (5) Substance induced mood disorder Current Visit: Yes Status: Chronic (6) Schizoaffective disorder Current Visit: Yes Status: Chronic Qualifiers: Schizoaffective disorder type: unspecified Qualified Code(s): F25.9 - Schizoaffective disorder, unspecified Comment: As per history. Patient is not compliant with aftercare. (7) Insomnia Current Visit: Yes Status: Chronic Qualifiers: Insomnia type: unspecified Qualified Code(s): G47.00 - Insomnia, unspecified (8) Non-compliance Current Visit: Yes Status: Chronic - Initial Treatment Plan Initial Treatment Plan: Psychoeducation. Sleep hygiene. Detoxification. Support given. Groups. Motivational sessions. Relapse prevention : discussed with the patient. Mr Brasher insists on resuming seroquel for insomnia. Side effects/ benefits + off label use of the drug : fully discussed in this session. Consent (verbal) granted to . Seroquel 100 mg po hs. Observation.
--- NOTE | 2018-10-27 14:22 | PN ---
[facility] CIWA - CIWA Score Nausea/Vomitin-No Nausea/No Vomiting Muscle Tremors: 3 Anxiety: 2 Agitation: 3 Paroxysmal Sweats: No Perspiration Orientation: 0-Oriented Tacttile Disturbances: 2-Mild Itch/Numbness/Burn Auditory Disturbances: 2-Mild Harshness/Frighten Visual Disturbances: 2-Mild Sensitivity Headache: 0-None Present CIWA-Ar Total Score: 14 S Progress Note (SOAP) Subjective: Tremors, Anxious, Interrupted Sleep. Objective: PATIENT A & O X 3, OBSERVED AMBULATING ON UNIT. IN NO ACUTE DISTRESS. PATIENT DENIES CHEST PAIN. 10/27/18 14:17 Vital Signs Temperature 97.6 F 10/27/18 13:47 Pulse Rate 70 10/27/18 13:47 Respiratory Rate 18 10/27/18 13:47 Blood Pressure 160/96 10/27/18 13:47 O2 Sat by Pulse Oximetry (%) Laboratory Tests 10/27/18 10/27/18 10/27/18 07:30 07:30 07:30 WBC 3.9 L RBC 4.49 Hgb 13.2 Hct 40.2 MCV 89.6 MCH 29.3 MCHC 32.8 RDW 14.1 Plt Count 151 MPV 10.0 Sodium 143 Potassium 3.7 Chloride 107 Carbon Dioxide 30 Anion Gap 6 L BUN 14 Creatinine 1.1 Creat Clearance w eGFR 70.29 Random Glucose 123 H Calcium 8.3 L Total Bilirubin 0.3 AST 10 L ALT 17 Alkaline Phosphatase 59 Total Protein 6.0 L Albumin 3.0 L Urine Color Urine Appearance Urine pH Ur Specific [place] Urine Protein Urine Glucose (UA) Urine Ketones Urine Blood Urine Nitrite Urine Bilirubin Urine Urobilinogen Ur Leukocyte Esterase RPR Titer HIV 1&2 Antibody Screen Negative HIV P24 Antigen Negative 10/27/18 10/27/18 07:30 08:20 WBC RBC Hgb Hct MCV MCH MCHC RDW Plt Count MPV Sodium Potassium Chloride Carbon Dioxide Anion Gap BUN Creatinine Creat Clearance w eGFR Random Glucose Calcium Total Bilirubin AST ALT Alkaline Phosphatase Total Protein Albumin Urine Color Yellow Urine Appearance Clear Urine pH 6.5 Ur Specific [place] 1.020 Urine Protein Negative Urine Glucose (UA) Negative Urine Ketones Negative Urine Blood Negative Urine Nitrite Negative Urine Bilirubin Negative Urine Urobilinogen 1.0 Ur Leukocyte Esterase Negative RPR Titer Nonreactive HIV 1&2 Antibody Screen HIV P24 Antigen LABS NOTED. 10/27/18 14:18 Assessment: 10/27/18 14:18 WITHDRAWAL SYMPTOMS. HYPERTENSION. Plan: CONTINUE DETOX. INCREASE DOSE OF LISINOPRIL TO 20 MG PO BID FOR PERSISTENTLY ELEVATED BP. INCREASE DAILY DOSE OF HCTZ TO 25 MG PO DAILY FOR PERSISTENTLY ELEVATED BP.
[2018-10-27] MEDS: THIAMINE HCL 100 MG TABLET (FP) PO SCH (22:29)
[2018-10-27] MEDS: QUEtiapine FUMARATE 100 MG TABLET (FP) PO SCH (22:29)
[2018-10-27] MEDS: LISINOPRIL 20 MG TABLET (FP) PO SCH (22:30)
[2018-10-27] MEDS: chlordiazePOXIDE 5 MG CAPSULE PO SCH (22:31)
[2018-10-28] MEDS: chlordiazePOXIDE 5 MG CAPSULE PO SCH ×2 (05:55→12:15)
[2018-10-28] MEDS ORDERED: LISINOPRIL 20 MG TABLET (FP) PO SCH (10:00)
[2018-10-28] MEDS ORDERED: HYDROCHLOROTHIAZIDE 12.5 MG CAPSULE (FP) PO SCH (10:00)
[2018-10-28] MEDS: PRENATAL VITAMINS W/ FOLIC ACID TABLET (FP) PO SCH (10:12)
[2018-10-28] MEDS: HYDROCHLOROTHIAZIDE 25 MG TABLET (FP) PO SCH (10:12)
[2018-10-28] MEDS: LISINOPRIL 20 MG TABLET (FP) PO SCH ×2 (10:12→21:47)
[2018-10-28] MEDS: ASPIRIN 81 MG CHEWABLE TABLETS PO SCH (10:12)
--- NOTE | 2018-10-28 14:37 | PN ---
[facility] CIWA - CIWA Score Nausea/Vomitin-No Nausea/No Vomiting Muscle Tremors: 2 Anxiety: 3 Agitation: 2 Paroxysmal Sweats: 1-Minimal Palms Moist Orientation: 1-Uncertain about Date Tacttile Disturbances: 0-None Auditory Disturbances: 0-None Visual Disturbances: 0-None Headache: 1-Very Mild CIWA-Ar Total Score: 10 S Progress Note (SOAP) Subjective: preferring return to community psychiatrist patient is doing ok and stablized by the psychotropic medications feeling better social in day room with peers Objective: 10/28/18 14:41 Vital Signs Temperature 96.8 F L 10/28/18 09:45 Pulse Rate 73 10/28/18 09:45 Respiratory Rate 18 10/28/18 09:45 Blood Pressure 154/96 10/28/18 09:45 O2 Sat by Pulse Oximetry (%) Laboratory Last Values WBC 3.9 K/mm3 (4.0-10.0) L 10/27/18 07:30 RBC 4.49 M/mm3 (4.00-5.60) 10/27/18 07:30 Hgb 13.2 GM/dL (11.7-16.9) 10/27/18 07:30 Hct 40.2 % (35.4-49) 10/27/18 07:30 MCV 89.6 fl (80-96) 10/27/18 07:30 MCH 29.3 pg (25.7-33.7) 10/27/18 07:30 MCHC 32.8 g/dl (32.0-35.9) 10/27/18 07:30 RDW 14.1 % (11.9-15.9) 10/27/18 07:30 Plt Count 151 K/MM3 (134-434) 10/27/18 07:30 MPV 10.0 fl (7.5-11.1) 10/27/18 07:30 Sodium 143 mmol/L (136-145) 10/27/18 07:30 Potassium 3.7 mmol/L (3.5-5.1) 10/27/18 07:30 Chloride 107 mmol/L (98-107) 10/27/18 07:30 Carbon Dioxide 30 mmol/L (21-32) 10/27/18 07:30 Anion Gap 6 MMOL/L (8-16) L 10/27/18 07:30 BUN 14 mg/dL (7-18) 10/27/18 07:30 Creatinine 1.1 mg/dL (0.55-1.3) 10/27/18 07:30 Creat Clearance w eGFR 70.29 (>60) 10/27/18 07:30 Random Glucose 123 mg/dL (74-106) H 10/27/18 07:30 Calcium 8.3 mg/dL (8.5-10.1) L 10/27/18 07:30 Total Bilirubin 0.3 mg/dL (0.2-1) 10/27/18 07:30 AST 10 U/L (15-37) L 10/27/18 07:30 ALT 17 U/L (13-61) 10/27/18 07:30 Alkaline Phosphatase 59 U/L (45-117) 10/27/18 07:30 Total Protein 6.0 g/dl (6.4-8.2) L 10/27/18 07:30 Albumin 3.0 g/dl (3.4-5.0) L 10/27/18 07:30 Urine Color Yellow 10/27/18 08:20 Urine Appearance Clear 10/27/18 08:20 Urine pH 6.5 (5.0-8.0) 10/27/18 08:20 Ur Specific [place] 1.020 (1.010-1.035) 10/27/18 08:20 Urine Protein Negative (NEGATIVE) 10/27/18 08:20 Urine Glucose (UA) Negative (NEGATIVE) 10/27/18 08:20 Urine Ketones Negative (NEGATIVE) 10/27/18 08:20 Urine Blood Negative (NEGATIVE) 10/27/18 08:20 Urine Nitrite Negative (NEGATIVE) 10/27/18 08:20 Urine Bilirubin Negative (<2.0 mg/dL) 10/27/18 08:20 Urine Urobilinogen 1.0 mg/dL (0.2-1.0) 10/27/18 08:20 Ur Leukocyte Esterase Negative (NEGATIVE) 10/27/18 08:20 RPR Titer Nonreactive (NONREACTIVE) 10/27/18 07:30 HIV 1&2 Antibody Screen Negative 10/27/18 07:30 HIV P24 Antigen Negative 10/27/18 07:30 lab noted clonidin 0.1 mg q6h prn 10/28/18 14:45 Assessment: 10/28/18 14:45 withdrawal sx hypertension Plan: continue detox clonidin 0.1 mg q6h prn
[2018-10-28] MEDS ORDERED: cloNIDine HCL 0.1 MG TABLET PO PRN (14:43)
[2018-10-28] MEDS ORDERED: chlordiazePOXIDE HCL 10 MG CAPSULE PO PRN (21:00)
[2018-10-28] MEDS: chlordiazePOXIDE HCL 10 MG CAPSULE PO SCH (21:47)
[2018-10-28] MEDS: QUEtiapine FUMARATE 100 MG TABLET (FP) PO SCH (21:47)
[2018-10-28] MEDS: THIAMINE HCL 100 MG TABLET (FP) PO SCH (21:48)
[2018-10-29] MEDS: chlordiazePOXIDE HCL 10 MG CAPSULE PO SCH (05:23)
[2018-10-29 09:20] VITALS: BP 142/94; PULSE 76; TEMP 97.9
[2018-10-29] MEDS: LISINOPRIL 20 MG TABLET (FP) PO SCH (09:21)
[2018-10-29] MEDS: HYDROCHLOROTHIAZIDE 25 MG TABLET (FP) PO SCH (09:21)
[2018-10-29] MEDS: ASPIRIN 81 MG CHEWABLE TABLETS PO SCH (09:21)
[2018-10-29] MEDS: PRENATAL VITAMINS W/ FOLIC ACID TABLET (FP) PO SCH (09:21)
--- NOTE | 2018-10-29 11:37 | DS ---
[facility] Detox Discharge Summary Admission Date: 10/26/18 Discharge Date: 10/29/18 - History Present History: Alcohol Dependence Additional Comments: 53 years old male admitted on 10/26/18 for alcohol withdrawal stabilization completed detox regimen [facility] - Physical Exam Results Vital Signs: Vital Signs Temperature 97.9 F 10/29/18 09:00 Pulse Rate 76 10/29/18 09:00 Respiratory Rate 20 10/29/18 09:00 Blood Pressure 142/94 10/29/18 09:00 O2 Sat by Pulse Oximetry (%) Pertinent Admission Physical Exam Findings: alcohol withdrawal sx Laboratory Last Values WBC 3.9 K/mm3 (4.0-10.0) L 10/27/18 07:30 RBC 4.49 M/mm3 (4.00-5.60) 10/27/18 07:30 Hgb 13.2 GM/dL (11.7-16.9) 10/27/18 07:30 Hct 40.2 % (35.4-49) 10/27/18 07:30 MCV 89.6 fl (80-96) 10/27/18 07:30 MCH 29.3 pg (25.7-33.7) 10/27/18 07:30 MCHC 32.8 g/dl (32.0-35.9) 10/27/18 07:30 RDW 14.1 % (11.9-15.9) 10/27/18 07:30 Plt Count 151 K/MM3 (134-434) 10/27/18 07:30 MPV 10.0 fl (7.5-11.1) 10/27/18 07:30 Sodium 143 mmol/L (136-145) 10/27/18 07:30 Potassium 3.7 mmol/L (3.5-5.1) 10/27/18 07:30 Chloride 107 mmol/L (98-107) 10/27/18 07:30 Carbon Dioxide 30 mmol/L (21-32) 10/27/18 07:30 Anion Gap 6 MMOL/L (8-16) L 10/27/18 07:30 BUN 14 mg/dL (7-18) 10/27/18 07:30 Creatinine 1.1 mg/dL (0.55-1.3) 10/27/18 07:30 Creat Clearance w eGFR 70.29 (>60) 10/27/18 07:30 Random Glucose 123 mg/dL (74-106) H 10/27/18 07:30 Calcium 8.3 mg/dL (8.5-10.1) L 10/27/18 07:30 Total Bilirubin 0.3 mg/dL (0.2-1) 10/27/18 07:30 AST 10 U/L (15-37) L 10/27/18 07:30 ALT 17 U/L (13-61) 10/27/18 07:30 Alkaline Phosphatase 59 U/L (45-117) 10/27/18 07:30 Total Protein 6.0 g/dl (6.4-8.2) L 10/27/18 07:30 Albumin 3.0 g/dl (3.4-5.0) L 10/27/18 07:30 Urine Color Yellow 10/27/18 08:20 Urine Appearance Clear 10/27/18 08:20 Urine pH 6.5 (5.0-8.0) 10/27/18 08:20 Ur Specific [place] 1.020 (1.010-1.035) 10/27/18 08:20 Urine Protein Negative (NEGATIVE) 10/27/18 08:20 Urine Glucose (UA) Negative (NEGATIVE) 10/27/18 08:20 Urine Ketones Negative (NEGATIVE) 10/27/18 08:20 Urine Blood Negative (NEGATIVE) 10/27/18 08:20 Urine Nitrite Negative (NEGATIVE) 10/27/18 08:20 Urine Bilirubin Negative (<2.0 mg/dL) 10/27/18 08:20 Urine Urobilinogen 1.0 mg/dL (0.2-1.0) 10/27/18 08:20 Ur Leukocyte Esterase Negative (NEGATIVE) 10/27/18 08:20 RPR Titer Nonreactive (NONREACTIVE) 10/27/18 07:30 HIV 1&2 Antibody Screen Negative 10/27/18 07:30 HIV P24 Antigen Negative 10/27/18 07:30 lab noted - Treatment Hospital Course: Detox Protocol Followed, Detoxed Safely, Responded well, Discharged Condition Good, Rehab Referral Accepted Patient has Accepted a Re[facility] Referral to: [facility] - Medication Discharge Medications: Ambulatory Orders Aspirin [ASA -] 81 mg PO DAILY #30 tab.chew 01/15/14 Quetiapine Fumarate [Seroquel -] 300 mg PO HS 11/19/16 Lisinopril/Hydrochlorothiazide [Lisinopril-Hctz 20-12.5 mg Tab] 1 each PO DAILY 11/16/17 - Diagnosis (1) Alcohol dependence with uncomplicated withdrawal Status: Acute (2) Essential hypertension Status: Chronic (3) Nicotine dependence Status: Acute Qualifiers: Nicotine product type: cigarettes Substance use status: in withdrawal Qualified Code(s): F17.213 - Nicotine dependence, cigarettes, with withdrawal (4) Positive PPD Status: Resolved - AMA Did Patient Leave Against Medical Advice: No
== END 2018-10-29 09:20 | disposition home or self-care (01) | DRG 897 ==
LOC: YASAS 16:16 → Y3N 20:20
PROVIDERS: ADMIT Surgery; ATTEND Surgery
PROC: HZ2ZZZZ Detoxification Services for Substance Abuse Treatment (ICD-10-PCS; principal; 2018-10-27)
DX: F10.230 Alcohol dependence with withdrawal, uncomplicated (principal); F14.20 Cocaine dependence, uncomplicated; F12.20 Cannabis dependence, uncomplicated; F17.213 Nicotine dependence, cigarettes, with withdrawal; F19.24 Other psychoactive substance dependence with psychoactive substance-induced mood disorder; F25.9 Schizoaffective disorder, unspecified; I10 Essential (primary) hypertension; G47.00 Insomnia, unspecified; Z91.19 Patient's noncompliance with other medical treatment and regimen; Z86.11 Personal history of tuberculosis
CPT/HCPCS: 36415; 80053; 81003; 85027; 86593; 87389; J0735

== ENCOUNTER 2021-07-16 13:31 | Inpatient (IN) | payer OTHER ==
[2021-07-16] MEDS ORDERED: METHOCARBAMOL 500 MG TABLET PO PRN (15:31)
[2021-07-16] MEDS ORDERED: MAGNESIUM CITRATE 300 ML BOTTLE PO PRN (15:31)
[2021-07-16] MEDS ORDERED: MAGNESIUM HYDROX 2400MG/30ML ORAL SUSPENSION 30 ML CUP PO PRN (15:31)
[2021-07-16] MEDS ORDERED: NICOTINE 10 MG CARTRIDGE (INHALER) IH PRN (15:31)
[2021-07-16] MEDS ORDERED: MAG HYDROX/AL HYDROX/SIMETH 30 ML UNIT-DOSE CUP PO PRN (15:31)
[2021-07-16] MEDS ORDERED: BISMUTH SUBSALICYLATE 524 MG/30 ML PO PRN (15:31)
[2021-07-16] MEDS ORDERED: IBUPROFEN 400 MG TABLET (FP) PO PRN (15:31)
[2021-07-16] MEDS ORDERED: ACETAMINOPHEN 325 MG TABLET (FP) PO PRN ×2 (15:31)
[2021-07-16] MEDS ORDERED: ONDANSETRON *ODT* 4 MG TABLET SL PRN (15:31)
[2021-07-16] MEDS ORDERED: MENTHOL/PHENOL 1 EACH UD MM PRN (15:31)
[2021-07-16 16:09] VITALS: BMI 29.0
[2021-07-16] MEDS ORDERED: cloNIDine HCL 0.1 MG TABLET PO ONE ×2 (16:48→23:02)
[2021-07-16] MEDS: hydrOXYzine PAMOATE 25 MG CAPSULE (FP) PO SCH ×2 (18:10→22:55)
[2021-07-16] MEDS: THIAMINE HCL 100 MG TABLET (FP) PO SCH (22:55)
[2021-07-16] MEDS: MELATONIN 5 MG TABLETS PO SCH (22:55)
[2021-07-17] MEDS: hydrOXYzine PAMOATE 25 MG CAPSULE (FP) PO SCH ×5 (07:02→22:15)
[2021-07-17] MEDS: LISINOPRIL 20 MG TABLET PO SCH (10:30)
[2021-07-17] MEDS: PRENATAL VITAMINS W/ FOLIC ACID TABLET (FP) PO SCH (10:30)
[2021-07-17] MEDS: HYDROCHLOROTHIAZIDE 25 MG TABLET (FP) PO SCH (10:31)
[2021-07-17] MEDS ORDERED: LORazepam 1 MG TABLET PO PRN (11:10)
[2021-07-17] MEDS: LORazepam 1 MG TABLET PO SCH ×3 (12:12→22:16)
[2021-07-17 12:31] LABS: HEMATOCRIT 41.7 % (35.4-49); HEMOGLOBIN 13.5 GM/dL (11.7-16.9); MCHC 32.4 g/dl (32.0-35.9); MEAN CELL VOLUME 89.5 fl (80-96); MEAN PLT VOLUME 10.5 fl (7.5-11.1); PLATELET COUNT 148 10^3/uL (134-434); RBC 4.66 M/mm3 (4.00-5.60); RDW 13.8 % (11.9-15.9)
[2021-07-17 12:33] LABS: BLOOD UREA NITROGEN 13.5 mg/dL (7-18); CALCIUM 8.7 mg/dL (8.5-10.1)
[2021-07-17 12:34] LABS: ALBUMIN 2.6 g/dl (3.4-5.0)
[2021-07-17 12:37] LABS: BILIRUBIN,TOTAL 0.4 mg/dL (0.2-1); CREATININE 1.1 mg/dL (0.55-1.3)
[2021-07-17 12:39] LABS: TOT PROT 5.8 g/dl (6.4-8.2)
[2021-07-17] MEDS ORDERED: cloNIDine HCL 0.1 MG TABLET PO ONE (20:41)
[2021-07-17] MEDS: MELATONIN 5 MG TABLETS PO SCH (22:15)
[2021-07-17] MEDS: QUEtiapine FUMARATE 200 MG TABLET PO SCH (22:15)
[2021-07-17] MEDS: THIAMINE HCL 100 MG TABLET (FP) PO SCH (22:16)
[2021-07-18] MEDS ORDERED: LORazepam 0.5 MG TABLET PO PRN
[2021-07-18] MEDS: LORazepam 0.5 MG TABLET PO SCH ×4 (06:56→22:13)
[2021-07-18] MEDS: hydrOXYzine PAMOATE 25 MG CAPSULE (FP) PO SCH ×5 (06:56→22:15)
[2021-07-18] MEDS: LISINOPRIL 20 MG TABLET PO SCH (10:24)
[2021-07-18] MEDS: HYDROCHLOROTHIAZIDE 25 MG TABLET (FP) PO SCH (10:24)
[2021-07-18] MEDS: PRENATAL VITAMINS W/ FOLIC ACID TABLET (FP) PO SCH (10:24)
[2021-07-18] MEDS ORDERED: cloNIDine HCL 0.1 MG TABLET PO ONE (17:45)
[2021-07-18] MEDS: QUEtiapine FUMARATE 200 MG TABLET PO SCH (22:13)
[2021-07-18] MEDS: THIAMINE HCL 100 MG TABLET (FP) PO SCH (22:13)
[2021-07-18] MEDS: MELATONIN 5 MG TABLETS PO SCH (22:15)
[2021-07-19] MEDS ORDERED: LORazepam 0.5 MG TABLET PO ONE (05:00)
[2021-07-19] MEDS: hydrOXYzine PAMOATE 25 MG CAPSULE (FP) PO SCH ×3 (07:00→15:02)
[2021-07-19 09:29] VITALS: TEMP 97.7
[2021-07-19] MEDS: LISINOPRIL 20 MG TABLET PO SCH (09:55)
[2021-07-19] MEDS: HYDROCHLOROTHIAZIDE 25 MG TABLET (FP) PO SCH (09:57)
[2021-07-19] MEDS: PRENATAL VITAMINS W/ FOLIC ACID TABLET (FP) PO SCH (09:57)
[2021-07-19 13:14] VITALS: BP 154/99; PULSE 84
== END 2021-07-19 13:55 | disposition home or self-care (01) | DRG 897 ==
LOC: YASAS 13:31 → Y3N 16:38
PROVIDERS: ADMIT Allergy & Immunology; ATTEND Allergy & Immunology
PROC: HZ2ZZZZ Detoxification Services for Substance Abuse Treatment (ICD-10-PCS; principal; 2021-07-16)
DX: F10.230 Alcohol dependence with withdrawal, uncomplicated (principal); F14.20 Cocaine dependence, uncomplicated; F12.20 Cannabis dependence, uncomplicated; F17.210 Nicotine dependence, cigarettes, uncomplicated; F25.9 Schizoaffective disorder, unspecified; F19.24 Other psychoactive substance dependence with psychoactive substance-induced mood disorder; F34.1 Dysthymic disorder; I10 Essential (primary) hypertension; G47.00 Insomnia, unspecified; I25.10 Atherosclerotic heart disease of native coronary artery without angina pectoris; R01.1 Cardiac murmur, unspecified; Z86.16 Personal history of COVID-19; Z98.61 Coronary angioplasty status; Z86.11 Personal history of tuberculosis; Z91.19 Patient's noncompliance with other medical treatment and regimen; Z91.51 Personal history of suicidal behavior; Z56.0 Unemployment, unspecified
CPT/HCPCS: 36415; 80053; 84439; 84443; 85027; 86780; 87529; 93005; 93010; C9803-CS; U0003; U0005

== ENCOUNTER 2023-03-06 11:46 | Inpatient (IN) | payer OTHER ==
[2023-03-06 12:04] VITALS: BMI 29.5
[2023-03-06] MEDS ORDERED: LISINOPRIL 10 MG TABLET ONE (12:34)
[2023-03-06] MEDS ORDERED: BENZOCAINE/MENTHOL (CHLORASEPTIC ) LOZENGE MM PRN (12:42)
[2023-03-06] MEDS ORDERED: guaiFENesin 600 MG TABLET.ER (FP) PO PRN (12:42)
[2023-03-06] MEDS ORDERED: LOPERAMIDE HCL 2 MG CAPSULE PO PRN (12:42)
[2023-03-06] MEDS ORDERED: ACETAMINOPHEN 325 MG TABLET (FP) PO PRN (12:42)
[2023-03-06] MEDS ORDERED: MAGNESIUM HYDROX 2400MG/30ML ORAL SUSPENSION 30 ML CUP PO PRN (12:42)
[2023-03-06] MEDS ORDERED: IBUPROFEN 400 MG TABLET (FP) PO PRN (12:42)
[2023-03-06] MEDS ORDERED: NALOXONE HCL 0.4 MG/ML VIAL IM PRN (12:42)
[2023-03-06] MEDS ORDERED: NALOXONE HCL (KLOXXADO) 8 MG SPRAY NS PRN (12:42)
[2023-03-06] MEDS ORDERED: hydrOXYzine PAMOATE 25 MG CAPSULE (FP) PO PRN (12:42)
[2023-03-06] MEDS ORDERED: POLYETHYLENE GLYCOL (HEALTHYLAX) 3350 17 GM PACKET PO PRN (12:42)
[2023-03-06] MEDS ORDERED: MAG HYDROX/AL HYDROX/SIMETH 30 ML UNIT-DOSE CUP PO PRN (12:42)
[2023-03-06] MEDS ORDERED: AMMONIUM LACTATE 12% LOTION 225 GM BOTTLE TP PRN (12:42)
[2023-03-06] MEDS ORDERED: BENZONATATE 200 MG CAPSULE PO PRN (12:42)
[2023-03-06] MEDS: PRENATAL VITAMINS W/ FOLIC ACID TABLET (FP) PO SCH (13:48)
[2023-03-06 18:57] LABS: PH,URINE 7.5 (5.0-8.0); URINE APPEARANCE CLEAR; URINE BILIRUBIN NEGATIVE (NEGATIVE); URINE COLOR YELLOW; URINE GLUCOSE (UA) NEGATIVE (NEGATIVE); URINE KETONE NEGATIVE (NEGATIVE); URINE LEUK ESTERASE NEGATIVE (NEGATIVE); URINE NITRITE NEGATIVE (NEGATIVE); URINE PROTEIN NEGATIVE (NEGATIVE)
[2023-03-06] MEDS: THIAMINE HCL 100 MG TABLET (FP) PO SCH (21:22)
[2023-03-06] MEDS ORDERED: MELATONIN 5 MG TABLETS PO SCH (22:00)
[2023-03-07] MEDS ORDERED: cloNIDine HCL 0.1 MG TABLET PO ONE (08:00)
[2023-03-07] MEDS ORDERED: LISINOPRIL 20 MG TABLET PO ONE (09:24)
[2023-03-07] MEDS: HYDROCHLOROTHIAZIDE 25 MG TABLET (FP) PO SCH (09:58)
[2023-03-07] MEDS: ASPIRIN 81 MG CHEWABLE TABLETS PO SCH (09:58)
[2023-03-07] MEDS: PRENATAL VITAMINS W/ FOLIC ACID TABLET (FP) PO SCH (09:58)
[2023-03-07] MEDS ORDERED: LISINOPRIL 20 MG TABLET PO SCH (10:00)
[2023-03-07] MEDS: CLOTRIMAZOLE 1% 10 ML TOPICAL SOLUTION TP SCH ×2 (10:09→21:18)
[2023-03-07] MEDS: cloNIDine HCL 0.1 MG TABLET PO PRN (14:20)
[2023-03-07 14:24] LABS: POTASSIUM 3.9 mmol/L (3.5-5.1)
[2023-03-07 14:25] LABS: HEMATOCRIT 40.4 % (35.4-49); HEMOGLOBIN 13.5 GM/dL (11.7-16.9); MCH 28.7 pg (25.7-33.7); MCHC 33.5 g/dl (32.0-35.9); MEAN CELL VOLUME 85.7 fl (80-96); MEAN PLT VOLUME 10.7 fl (7.5-11.1); PLATELET COUNT 150 10^3/uL (134-434); RBC 4.71 M/mm3 (4.00-5.60); RDW 14.6 % (11.9-15.9); WHITE BLOOD COUNT 3.2 K/mm3 (4.0-10.0)
[2023-03-07 14:26] LABS: ALBUMIN 3.4 g/dl (3.4-5.0); BLOOD UREA NITROGEN 18.8 mg/dL (7-18); CALCIUM 8.4 mg/dL (8.5-10.1)
[2023-03-07 14:29] LABS: CREATININE 1.1 mg/dL (0.55-1.3)
[2023-03-07 14:31] LABS: BILIRUBIN,TOTAL 0.2 mg/dL (0.2-1); TOT PROT 6.7 g/dl (6.4-8.2)
[2023-03-07 14:50] LABS: SYPHILIS W/ RPR CONF NON-REACTIVE (NONREACTIVE)
[2023-03-07 15:20] LABS: HIV INTERPRETATION NEGATIVE (NEGATIVE)
[2023-03-07] MEDS: THIAMINE HCL 100 MG TABLET (FP) PO SCH (21:17)
[2023-03-07] MEDS: QUEtiapine FUMARATE 100 MG TABLET (FP) PO SCH (21:19)
[2023-03-08] MEDS: COLLOIDAL OATMEAL 1 BAR EACH TP PRN (06:31)
[2023-03-08] MEDS: LISINOPRIL 20 MG TABLET PO SCH (06:31)
[2023-03-08] MEDS: PRENATAL VITAMINS W/ FOLIC ACID TABLET (FP) PO SCH (09:47)
[2023-03-08] MEDS: CLOTRIMAZOLE 1% 10 ML TOPICAL SOLUTION TP SCH ×2 (09:47→21:27)
[2023-03-08] MEDS: HYDROCHLOROTHIAZIDE 25 MG TABLET (FP) PO SCH (09:47)
[2023-03-08] MEDS: ASPIRIN 81 MG CHEWABLE TABLETS PO SCH (09:47)
[2023-03-08] MEDS: QUEtiapine FUMARATE 100 MG TABLET (FP) PO SCH (21:23)
[2023-03-08] MEDS: THIAMINE HCL 100 MG TABLET (FP) PO SCH (21:23)
[2023-03-09] MEDS: LISINOPRIL 20 MG TABLET PO SCH (06:05)
[2023-03-09] MEDS: PRENATAL VITAMINS W/ FOLIC ACID TABLET (FP) PO SCH (10:09)
[2023-03-09] MEDS: ASPIRIN 81 MG CHEWABLE TABLETS PO SCH (10:09)
[2023-03-09] MEDS: HYDROCHLOROTHIAZIDE 25 MG TABLET (FP) PO SCH (10:09)
[2023-03-09] MEDS: CLOTRIMAZOLE 1% 10 ML TOPICAL SOLUTION TP SCH ×2 (10:10→21:24)
[2023-03-09] MEDS: cloNIDine HCL 0.1 MG TABLET PO PRN (12:47)
[2023-03-09] MEDS: QUEtiapine FUMARATE 100 MG TABLET (FP) PO SCH (21:24)
[2023-03-09] MEDS: THIAMINE HCL 100 MG TABLET (FP) PO SCH (21:24)
[2023-03-10] MEDS: LISINOPRIL 20 MG TABLET PO SCH (06:54)
[2023-03-10] MEDS: HYDROCHLOROTHIAZIDE 25 MG TABLET (FP) PO SCH (09:39)
[2023-03-10] MEDS: PRENATAL VITAMINS W/ FOLIC ACID TABLET (FP) PO SCH (09:39)
[2023-03-10] MEDS: ASPIRIN 81 MG CHEWABLE TABLETS PO SCH (09:39)
[2023-03-10] MEDS: CLOTRIMAZOLE 1% 10 ML TOPICAL SOLUTION TP SCH ×2 (09:40→21:37)
[2023-03-10] MEDS: IBUPROFEN 600 MG TABLET (FP) PO PRN (16:27)
[2023-03-10] MEDS ORDERED: BENZOCAINE 20 % GEL TUBE MM PRN (17:42)
[2023-03-10] MEDS: QUEtiapine FUMARATE 100 MG TABLET (FP) PO SCH (21:36)
[2023-03-10] MEDS: THIAMINE HCL 100 MG TABLET (FP) PO SCH (21:37)
[2023-03-11] MEDS: LISINOPRIL 20 MG TABLET PO SCH (06:04)
[2023-03-11] MEDS: PRENATAL VITAMINS W/ FOLIC ACID TABLET (FP) PO SCH (09:58)
[2023-03-11] MEDS: HYDROCHLOROTHIAZIDE 25 MG TABLET (FP) PO SCH (09:58)
[2023-03-11] MEDS: ASPIRIN 81 MG CHEWABLE TABLETS PO SCH (09:58)
[2023-03-11] MEDS: CLOTRIMAZOLE 1% 10 ML TOPICAL SOLUTION TP SCH ×2 (09:59→21:35)
[2023-03-11] MEDS: IBUPROFEN 600 MG TABLET (FP) PO PRN (15:30)
[2023-03-11] MEDS: THIAMINE HCL 100 MG TABLET (FP) PO SCH (21:35)
[2023-03-11] MEDS: QUEtiapine FUMARATE 100 MG TABLET (FP) PO SCH (21:35)
[2023-03-12] MEDS: LISINOPRIL 20 MG TABLET PO SCH (06:53)
[2023-03-12] MEDS: HYDROCHLOROTHIAZIDE 25 MG TABLET (FP) PO SCH (09:57)
[2023-03-12] MEDS: CLOTRIMAZOLE 1% 10 ML TOPICAL SOLUTION TP SCH ×2 (09:57→21:31)
[2023-03-12] MEDS: PRENATAL VITAMINS W/ FOLIC ACID TABLET (FP) PO SCH (09:57)
[2023-03-12] MEDS: ASPIRIN 81 MG CHEWABLE TABLETS PO SCH (09:57)
[2023-03-12] MEDS: THIAMINE HCL 100 MG TABLET (FP) PO SCH (21:31)
[2023-03-12] MEDS: QUEtiapine FUMARATE 100 MG TABLET (FP) PO SCH (21:31)
[2023-03-13] MEDS: LISINOPRIL 20 MG TABLET PO SCH (06:06)
[2023-03-13] MEDS: HYDROCHLOROTHIAZIDE 25 MG TABLET (FP) PO SCH (10:15)
[2023-03-13] MEDS: ASPIRIN 81 MG CHEWABLE TABLETS PO SCH (10:15)
[2023-03-13] MEDS: CLOTRIMAZOLE 1% 10 ML TOPICAL SOLUTION TP SCH ×2 (10:15→21:30)
[2023-03-13] MEDS: PRENATAL VITAMINS W/ FOLIC ACID TABLET (FP) PO SCH (10:15)
[2023-03-13] MEDS ORDERED: OCULAR LUBRICANT OPHTHALMIC OINTMENT 7 GM TUBE OU PRN (11:17)
[2023-03-13] MEDS: QUEtiapine FUMARATE 100 MG TABLET (FP) PO SCH (21:29)
[2023-03-13] MEDS: THIAMINE HCL 100 MG TABLET (FP) PO SCH (21:33)
[2023-03-13] MEDS: ARTIFICIAL TEARS (POLYVINYL ALCOHOL) OPTH DROPS OU PRN (21:33)
[2023-03-14] MEDS: LISINOPRIL 20 MG TABLET PO SCH (06:27)
[2023-03-14] MEDS: ASPIRIN 81 MG CHEWABLE TABLETS PO SCH (10:07)
[2023-03-14] MEDS: HYDROCHLOROTHIAZIDE 25 MG TABLET (FP) PO SCH (10:07)
[2023-03-14] MEDS: PRENATAL VITAMINS W/ FOLIC ACID TABLET (FP) PO SCH (10:07)
[2023-03-14] MEDS: CLOTRIMAZOLE 1% 10 ML TOPICAL SOLUTION TP SCH ×2 (10:08→21:19)
[2023-03-14] MEDS: ARTIFICIAL TEARS (POLYVINYL ALCOHOL) OPTH DROPS OU PRN ×2 (10:08→21:19)
[2023-03-14] MEDS: THIAMINE HCL 100 MG TABLET (FP) PO SCH (21:18)
[2023-03-14] MEDS: QUEtiapine FUMARATE 100 MG TABLET (FP) PO SCH (21:18)
[2023-03-15] MEDS: LISINOPRIL 20 MG TABLET PO SCH (05:50)
[2023-03-15] MEDS: HYDROCHLOROTHIAZIDE 25 MG TABLET (FP) PO SCH (09:55)
[2023-03-15] MEDS: PRENATAL VITAMINS W/ FOLIC ACID TABLET (FP) PO SCH (09:55)
[2023-03-15] MEDS: ASPIRIN 81 MG CHEWABLE TABLETS PO SCH (09:55)
[2023-03-15] MEDS: CLOTRIMAZOLE 1% 10 ML TOPICAL SOLUTION TP SCH ×2 (09:56→21:34)
[2023-03-15] MEDS: ARTIFICIAL TEARS (POLYVINYL ALCOHOL) OPTH DROPS OU PRN ×2 (09:57→21:34)
[2023-03-15] MEDS: THIAMINE HCL 100 MG TABLET (FP) PO SCH (21:34)
[2023-03-15] MEDS: QUEtiapine FUMARATE 100 MG TABLET (FP) PO SCH (21:34)
[2023-03-16] MEDS: LISINOPRIL 20 MG TABLET PO SCH (06:14)
[2023-03-16] MEDS: COLLOIDAL OATMEAL 1 BAR EACH TP PRN (06:17)
[2023-03-16] MEDS: PRENATAL VITAMINS W/ FOLIC ACID TABLET (FP) PO SCH (10:01)
[2023-03-16] MEDS: HYDROCHLOROTHIAZIDE 25 MG TABLET (FP) PO SCH (10:01)
[2023-03-16] MEDS: ASPIRIN 81 MG CHEWABLE TABLETS PO SCH (10:01)
[2023-03-16] MEDS: CLOTRIMAZOLE 1% 10 ML TOPICAL SOLUTION TP SCH ×2 (10:02→21:26)
[2023-03-16] MEDS: ARTIFICIAL TEARS (POLYVINYL ALCOHOL) OPTH DROPS OU PRN ×2 (10:02→21:19)
[2023-03-16] MEDS: QUEtiapine FUMARATE 100 MG TABLET (FP) PO SCH (21:19)
[2023-03-16] MEDS: THIAMINE HCL 100 MG TABLET (FP) PO SCH (21:19)
[2023-03-17] MEDS: LISINOPRIL 20 MG TABLET PO SCH (06:23)
[2023-03-17] MEDS: HYDROCHLOROTHIAZIDE 25 MG TABLET (FP) PO SCH (09:56)
[2023-03-17] MEDS: PRENATAL VITAMINS W/ FOLIC ACID TABLET (FP) PO SCH (09:56)
[2023-03-17] MEDS: ASPIRIN 81 MG CHEWABLE TABLETS PO SCH (09:57)
[2023-03-17] MEDS: ARTIFICIAL TEARS (POLYVINYL ALCOHOL) OPTH DROPS OU PRN ×2 (09:58→21:25)
[2023-03-17] MEDS: CLOTRIMAZOLE 1% 10 ML TOPICAL SOLUTION TP SCH ×2 (09:58→21:25)
[2023-03-17] MEDS: QUEtiapine FUMARATE 100 MG TABLET (FP) PO SCH (21:24)
[2023-03-17] MEDS: THIAMINE HCL 100 MG TABLET (FP) PO SCH (21:24)
[2023-03-18] MEDS: LISINOPRIL 20 MG TABLET PO SCH (05:43)
[2023-03-18] MEDS: HYDROCHLOROTHIAZIDE 25 MG TABLET (FP) PO SCH (09:56)
[2023-03-18] MEDS: ASPIRIN 81 MG CHEWABLE TABLETS PO SCH (09:56)
[2023-03-18] MEDS: PRENATAL VITAMINS W/ FOLIC ACID TABLET (FP) PO SCH (09:57)
[2023-03-18] MEDS: CLOTRIMAZOLE 1% 10 ML TOPICAL SOLUTION TP SCH ×2 (09:57→21:23)
[2023-03-18] MEDS: ARTIFICIAL TEARS (POLYVINYL ALCOHOL) OPTH DROPS OU PRN ×2 (09:57→21:24)
[2023-03-18] MEDS: QUEtiapine FUMARATE 100 MG TABLET (FP) PO SCH (21:23)
[2023-03-18] MEDS: THIAMINE HCL 100 MG TABLET (FP) PO SCH (21:23)
[2023-03-19] MEDS: LISINOPRIL 20 MG TABLET PO SCH (06:31)
[2023-03-19] MEDS: ASPIRIN 81 MG CHEWABLE TABLETS PO SCH (10:01)
[2023-03-19] MEDS: PRENATAL VITAMINS W/ FOLIC ACID TABLET (FP) PO SCH (10:01)
[2023-03-19] MEDS: HYDROCHLOROTHIAZIDE 25 MG TABLET (FP) PO SCH (10:01)
[2023-03-19] MEDS: ARTIFICIAL TEARS (POLYVINYL ALCOHOL) OPTH DROPS OU PRN ×2 (10:02→21:27)
[2023-03-19] MEDS: CLOTRIMAZOLE 1% 10 ML TOPICAL SOLUTION TP SCH ×2 (10:03→21:27)
[2023-03-19] MEDS: QUEtiapine FUMARATE 100 MG TABLET (FP) PO SCH (21:27)
[2023-03-19] MEDS: THIAMINE HCL 100 MG TABLET (FP) PO SCH (21:27)
[2023-03-20] MEDS: LISINOPRIL 20 MG TABLET PO SCH (06:04)
[2023-03-20] MEDS: PRENATAL VITAMINS W/ FOLIC ACID TABLET (FP) PO SCH (10:12)
[2023-03-20] MEDS: ASPIRIN 81 MG CHEWABLE TABLETS PO SCH (10:13)
[2023-03-20] MEDS: CLOTRIMAZOLE 1% 10 ML TOPICAL SOLUTION TP SCH ×2 (10:13→21:25)
[2023-03-20] MEDS: HYDROCHLOROTHIAZIDE 25 MG TABLET (FP) PO SCH (10:13)
[2023-03-20] MEDS: ARTIFICIAL TEARS (POLYVINYL ALCOHOL) OPTH DROPS OU PRN ×2 (10:14→21:25)
[2023-03-20] MEDS: THIAMINE HCL 100 MG TABLET (FP) PO SCH (21:25)
[2023-03-20] MEDS: QUEtiapine FUMARATE 100 MG TABLET (FP) PO SCH (21:25)
[2023-03-21] MEDS: LISINOPRIL 20 MG TABLET PO SCH (06:27)
[2023-03-21] MEDS: ARTIFICIAL TEARS (POLYVINYL ALCOHOL) OPTH DROPS OU PRN ×2 (10:10→21:26)
[2023-03-21] MEDS: HYDROCHLOROTHIAZIDE 25 MG TABLET (FP) PO SCH (10:10)
[2023-03-21] MEDS: ASPIRIN 81 MG CHEWABLE TABLETS PO SCH (10:10)
[2023-03-21] MEDS: PRENATAL VITAMINS W/ FOLIC ACID TABLET (FP) PO SCH (10:10)
[2023-03-21] MEDS: CLOTRIMAZOLE 1% 10 ML TOPICAL SOLUTION TP SCH ×2 (10:11→21:27)
[2023-03-21] MEDS: THIAMINE HCL 100 MG TABLET (FP) PO SCH (21:25)
[2023-03-21] MEDS: QUEtiapine FUMARATE 100 MG TABLET (FP) PO SCH (21:25)
[2023-03-22] MEDS: LISINOPRIL 20 MG TABLET PO SCH (06:31)
[2023-03-22] MEDS: PRENATAL VITAMINS W/ FOLIC ACID TABLET (FP) PO SCH (10:01)
[2023-03-22] MEDS: ASPIRIN 81 MG CHEWABLE TABLETS PO SCH (10:01)
[2023-03-22] MEDS: HYDROCHLOROTHIAZIDE 25 MG TABLET (FP) PO SCH (10:01)
[2023-03-22] MEDS: CLOTRIMAZOLE 1% 10 ML TOPICAL SOLUTION TP SCH ×2 (10:01→21:33)
[2023-03-22] MEDS: ARTIFICIAL TEARS (POLYVINYL ALCOHOL) OPTH DROPS OU PRN (10:02)
[2023-03-22] MEDS: QUEtiapine FUMARATE 100 MG TABLET (FP) PO SCH (21:30)
[2023-03-22] MEDS: THIAMINE HCL 100 MG TABLET (FP) PO SCH (21:30)
[2023-03-23] MEDS: LISINOPRIL 20 MG TABLET PO SCH (06:46)
[2023-03-23] MEDS: PRENATAL VITAMINS W/ FOLIC ACID TABLET (FP) PO SCH (10:09)
[2023-03-23] MEDS: ASPIRIN 81 MG CHEWABLE TABLETS PO SCH (10:09)
[2023-03-23] MEDS: HYDROCHLOROTHIAZIDE 25 MG TABLET (FP) PO SCH (10:09)
[2023-03-23] MEDS: ARTIFICIAL TEARS (POLYVINYL ALCOHOL) OPTH DROPS OU PRN ×2 (10:10→21:33)
[2023-03-23] MEDS: CLOTRIMAZOLE 1% 10 ML TOPICAL SOLUTION TP SCH ×2 (10:10→21:33)
[2023-03-23] MEDS: THIAMINE HCL 100 MG TABLET (FP) PO SCH (21:32)
[2023-03-23] MEDS: QUEtiapine FUMARATE 100 MG TABLET (FP) PO SCH (21:32)
[2023-03-24] MEDS: LISINOPRIL 20 MG TABLET PO SCH (06:40)
[2023-03-24] MEDS: PRENATAL VITAMINS W/ FOLIC ACID TABLET (FP) PO SCH (10:06)
[2023-03-24] MEDS: HYDROCHLOROTHIAZIDE 25 MG TABLET (FP) PO SCH (10:07)
[2023-03-24] MEDS: ASPIRIN 81 MG CHEWABLE TABLETS PO SCH (10:07)
[2023-03-24] MEDS: CLOTRIMAZOLE 1% 10 ML TOPICAL SOLUTION TP SCH ×2 (10:08→21:45)
[2023-03-24] MEDS: ARTIFICIAL TEARS (POLYVINYL ALCOHOL) OPTH DROPS OU PRN ×2 (10:08→21:46)
[2023-03-24] MEDS: THIAMINE HCL 100 MG TABLET (FP) PO SCH (21:45)
[2023-03-24] MEDS: QUEtiapine FUMARATE 100 MG TABLET (FP) PO SCH (21:45)
[2023-03-25] MEDS: LISINOPRIL 20 MG TABLET PO SCH (05:52)
[2023-03-25] MEDS: PRENATAL VITAMINS W/ FOLIC ACID TABLET (FP) PO SCH (10:14)
[2023-03-25] MEDS: ASPIRIN 81 MG CHEWABLE TABLETS PO SCH (10:14)
[2023-03-25] MEDS: HYDROCHLOROTHIAZIDE 25 MG TABLET (FP) PO SCH (10:15)
[2023-03-25] MEDS: CLOTRIMAZOLE 1% 10 ML TOPICAL SOLUTION TP SCH ×2 (10:15→21:20)
[2023-03-25] MEDS: ARTIFICIAL TEARS (POLYVINYL ALCOHOL) OPTH DROPS OU PRN ×2 (10:15→21:21)
[2023-03-25] MEDS: THIAMINE HCL 100 MG TABLET (FP) PO SCH (21:18)
[2023-03-25] MEDS: QUEtiapine FUMARATE 100 MG TABLET (FP) PO SCH (21:18)
[2023-03-26] MEDS: LISINOPRIL 20 MG TABLET PO SCH (06:44)
[2023-03-26 07:31] VITALS: TEMP 97.4
[2023-03-26] MEDS: ARTIFICIAL TEARS (POLYVINYL ALCOHOL) OPTH DROPS OU PRN ×2 (10:19→21:24)
[2023-03-26] MEDS: CLOTRIMAZOLE 1% 10 ML TOPICAL SOLUTION TP SCH ×2 (10:19→21:25)
[2023-03-26] MEDS: HYDROCHLOROTHIAZIDE 25 MG TABLET (FP) PO SCH (10:19)
[2023-03-26] MEDS: ASPIRIN 81 MG CHEWABLE TABLETS PO SCH (10:19)
[2023-03-26] MEDS: PRENATAL VITAMINS W/ FOLIC ACID TABLET (FP) PO SCH (10:19)
[2023-03-26] MEDS: THIAMINE HCL 100 MG TABLET (FP) PO SCH (21:23)
[2023-03-26] MEDS: cloNIDine HCL 0.1 MG TABLET PO PRN (21:23)
[2023-03-26] MEDS: QUEtiapine FUMARATE 100 MG TABLET (FP) PO SCH (21:23)
[2023-03-27] MEDS: LISINOPRIL 20 MG TABLET PO SCH (06:25)
[2023-03-27 07:15] VITALS: RESP 18
[2023-03-27] MEDS: HYDROCHLOROTHIAZIDE 25 MG TABLET (FP) PO SCH (09:38)
[2023-03-27] MEDS: ASPIRIN 81 MG CHEWABLE TABLETS PO SCH (09:38)
[2023-03-27] MEDS: PRENATAL VITAMINS W/ FOLIC ACID TABLET (FP) PO SCH (09:39)
[2023-03-27] MEDS: CLOTRIMAZOLE 1% 10 ML TOPICAL SOLUTION TP SCH (10:00)
[2023-03-27 10:58] VITALS: BP 140/84; PULSE 86
== END 2023-03-27 09:57 | disposition home or self-care (01) | DRG 895 ==
LOC: YASAS 11:46 → Y5N 13:01
PROVIDERS: ADMIT Allergy & Immunology; ATTEND Psychiatry & Neurology Pain Medicine
PROC: HZ42ZZZ Group Counseling for Substance Abuse Treatment, Cognitive-Behavioral (ICD-10-PCS; principal; 2023-03-06)
DX: F10.20 Alcohol dependence, uncomplicated (principal); F14.20 Cocaine dependence, uncomplicated; F19.282 Other psychoactive substance dependence with psychoactive substance-induced sleep disorder; F12.20 Cannabis dependence, uncomplicated; F17.210 Nicotine dependence, cigarettes, uncomplicated; F19.24 Other psychoactive substance dependence with psychoactive substance-induced mood disorder; F25.9 Schizoaffective disorder, unspecified; F31.9 Bipolar disorder, unspecified; F34.1 Dysthymic disorder; G47.00 Insomnia, unspecified; I25.10 Atherosclerotic heart disease of native coronary artery without angina pectoris; I10 Essential (primary) hypertension; Z86.79 Personal history of other diseases of the circulatory system; Z28.310 Unvaccinated for COVID-19; Z28.9 Immunization not carried out for unspecified reason
CPT/HCPCS: 36415; 71046-TC-FY; 80053; 81003; 82962; 85027; 86780; 86803; 87389; 87635; 87811; 93005; 93010

== ENCOUNTER 2023-07-28 16:12 | Inpatient (IN) | payer OTHER ==
[2023-07-28 16:57] VITALS: BMI 31.8
[2023-07-28] MEDS ORDERED: LISINOPRIL 10 MG TABLET PO ONE (18:30)
[2023-07-28] MEDS ORDERED: LISINOPRIL 10 MG TABLET ONE (18:31)
[2023-07-28] MEDS ORDERED: BENZONATATE 200 MG CAPSULE PO PRN (20:57)
[2023-07-28] MEDS ORDERED: hydrOXYzine PAMOATE 25 MG CAPSULE (FP) PO PRN (20:57)
[2023-07-28] MEDS ORDERED: ACETAMINOPHEN 325 MG TABLET (FP) PO PRN (20:57)
[2023-07-28] MEDS ORDERED: NICOTINE POLACRILEX 2 MG GUM BUC PRN (20:57)
[2023-07-28] MEDS ORDERED: LOPERAMIDE HCL 2 MG CAPSULE PO PRN (20:57)
[2023-07-28] MEDS ORDERED: IBUPROFEN 600 MG TABLET (FP) PO PRN (20:57)
[2023-07-28] MEDS ORDERED: MAGNESIUM HYDROX 2400MG/30ML ORAL SUSPENSION 30 ML CUP PO PRN (20:57)
[2023-07-28] MEDS ORDERED: NALOXONE HCL (KLOXXADO) 8 MG SPRAY NS PRN (20:57)
[2023-07-28] MEDS ORDERED: POLYETHYLENE GLYCOL (HEALTHYLAX) 3350 17 GM PACKET PO PRN (20:57)
[2023-07-28] MEDS ORDERED: guaiFENesin 600 MG TABLET.ER (FP) PO PRN (20:57)
[2023-07-28] MEDS ORDERED: IBUPROFEN 400 MG TABLET (FP) PO PRN (20:57)
[2023-07-28] MEDS ORDERED: MAG HYDROX/AL HYDROX/SIMETH 30 ML UNIT-DOSE CUP PO PRN (20:57)
[2023-07-28] MEDS ORDERED: COLLOIDAL OATMEAL 1 BAR EACH TP PRN (20:57)
[2023-07-28] MEDS ORDERED: NALOXONE HCL 0.4 MG/ML VIAL IM PRN (20:57)
[2023-07-28] MEDS: THIAMINE HCL 100 MG TABLET (FP) PO SCH (21:05)
[2023-07-28] MEDS: MELATONIN 5 MG TABLETS PO SCH (21:06)
[2023-07-29 00:15] LABS: EPI CELLS 3 /uL (0-25.1); HYALINE CASTS 1 /uL (0-3.1); PH,URINE 5.5 (5.0-8.0); URINE APPEARANCE CLEAR; URINE BACTERIA 15 /uL (0-1359); URINE BILIRUBIN NEGATIVE (NEGATIVE); URINE COLOR YELLOW; URINE GLUCOSE (UA) NEGATIVE (NEGATIVE); URINE KETONE TRACE (NEGATIVE); URINE LEUK ESTERASE NEGATIVE (NEGATIVE); URINE NITRITE NEGATIVE (NEGATIVE); URINE PROTEIN 1+ (NEGATIVE); URINE RBC 7 /uL (0-23.9); URINE WBC 3 /uL (0-25.8)
[2023-07-29] MEDS ORDERED: cloNIDine HCL 0.1 MG TABLET PO ONE ×2 (07:00→23:26)
[2023-07-29 09:47] LABS: HEMATOCRIT 46.3 % (35.4-49); MCH 28.4 pg (25.7-33.7); MCHC 32.5 g/dl (32.0-35.9); MEAN CELL VOLUME 87.3 fl (80-96); MEAN PLT VOLUME 9.9 fl (7.5-11.1); PLATELET COUNT 146 10^3/uL (134-434); RBC 5.31 M/mm3 (4.00-5.60); RDW 13.7 % (11.9-15.9); WHITE BLOOD COUNT 2.9 K/mm3 (4.0-10.0)
[2023-07-29 09:53] LABS: CHLORIDE 107 mmol/L (98-107); POTASSIUM 3.8 mmol/L (3.5-5.1); SODIUM 138 mmol/L (136-145)
[2023-07-29 10:00] LABS: ALBUMIN 3.3 g/dl (3.4-5.0); ANION GAP 4 mmol/L (4-13); CALCIUM 8.7 mg/dL (8.5-10.1); CO2 27 mmol/L (21-32); GLUCOSE,RANDOM 127 mg/dL (74-106); SGPT/ALT 17 U/L (13-61)
[2023-07-29 10:02] LABS: BILIRUBIN,TOTAL 0.4 mg/dL (0.2-1)
[2023-07-29 10:03] LABS: ALK PHOS 71 U/L (45-117); SGOT/AST 14 U/L (15-37)
[2023-07-29] MEDS: LISINOPRIL 20 MG TABLET PO SCH (10:57)
[2023-07-29] MEDS: PRENATAL VITAMINS W/ FOLIC ACID TABLET (FP) PO SCH (10:57)
[2023-07-29] MEDS: NICOTINE 14 MG/24 HOURS TOPICAL PATCH TD SCH (10:58)
[2023-07-29 11:29] LABS: SYPHILIS W/ RPR CONF NON-REACTIVE (NONREACTIVE)
[2023-07-29] MEDS: HYDROCHLOROTHIAZIDE 25 MG TABLET (FP) PO SCH (15:15)
[2023-07-29] MEDS: ASPIRIN 81 MG CHEWABLE TABLETS PO SCH (15:15)
[2023-07-29] MEDS: THIAMINE HCL 100 MG TABLET (FP) PO SCH (21:05)
[2023-07-29] MEDS: MELATONIN 5 MG TABLETS PO SCH (21:05)
[2023-07-30] MEDS: LISINOPRIL 20 MG TABLET PO SCH (10:28)
[2023-07-30] MEDS: ASPIRIN 81 MG CHEWABLE TABLETS PO SCH (10:28)
[2023-07-30] MEDS: PRENATAL VITAMINS W/ FOLIC ACID TABLET (FP) PO SCH (10:28)
[2023-07-30] MEDS: HYDROCHLOROTHIAZIDE 25 MG TABLET (FP) PO SCH (10:29)
[2023-07-30] MEDS: NICOTINE 14 MG/24 HOURS TOPICAL PATCH TD SCH (10:30)
[2023-07-30] MEDS: MELATONIN 5 MG TABLETS PO SCH (21:04)
[2023-07-30] MEDS: THIAMINE HCL 100 MG TABLET (FP) PO SCH (21:04)
[2023-07-31] MEDS: NICOTINE 14 MG/24 HOURS TOPICAL PATCH TD SCH (10:26)
[2023-07-31] MEDS: HYDROCHLOROTHIAZIDE 25 MG TABLET (FP) PO SCH (10:26)
[2023-07-31] MEDS: PRENATAL VITAMINS W/ FOLIC ACID TABLET (FP) PO SCH (10:26)
[2023-07-31] MEDS: ASPIRIN 81 MG CHEWABLE TABLETS PO SCH (10:26)
[2023-07-31] MEDS: LISINOPRIL 20 MG TABLET PO SCH (10:27)
[2023-07-31] MEDS: THIAMINE HCL 100 MG TABLET (FP) PO SCH (21:01)
[2023-07-31] MEDS: MELATONIN 5 MG TABLETS PO SCH (21:02)
[2023-08-01] MEDS: LISINOPRIL 20 MG TABLET PO SCH (10:35)
[2023-08-01] MEDS: ASPIRIN 81 MG CHEWABLE TABLETS PO SCH (10:35)
[2023-08-01] MEDS: PRENATAL VITAMINS W/ FOLIC ACID TABLET (FP) PO SCH (10:35)
[2023-08-01] MEDS: HYDROCHLOROTHIAZIDE 25 MG TABLET (FP) PO SCH (10:35)
[2023-08-01] MEDS: NICOTINE 14 MG/24 HOURS TOPICAL PATCH TD SCH (10:36)
[2023-08-01] MEDS: THIAMINE HCL 100 MG TABLET (FP) PO SCH (22:26)
[2023-08-01] MEDS: MELATONIN 5 MG TABLETS PO SCH (22:26)
[2023-08-02] MEDS: ASPIRIN 81 MG CHEWABLE TABLETS PO SCH (10:17)
[2023-08-02] MEDS: LISINOPRIL 20 MG TABLET PO SCH (10:17)
[2023-08-02] MEDS: HYDROCHLOROTHIAZIDE 25 MG TABLET (FP) PO SCH (10:17)
[2023-08-02] MEDS: PRENATAL VITAMINS W/ FOLIC ACID TABLET (FP) PO SCH (10:17)
[2023-08-02] MEDS: NICOTINE 14 MG/24 HOURS TOPICAL PATCH TD SCH (10:18)
[2023-08-02] MEDS ORDERED: CLOTRIMAZOLE 1% CREAM TP SCH (13:30)
[2023-08-02] MEDS: CLOTRIMAZOLE 1% 10 ML TOPICAL SOLUTION TP SCH ×2 (15:40→21:06)
[2023-08-02] MEDS: THIAMINE HCL 100 MG TABLET (FP) PO SCH (21:04)
[2023-08-02] MEDS: MELATONIN 5 MG TABLETS PO SCH (21:53)
[2023-08-03] MEDS: ASPIRIN 81 MG CHEWABLE TABLETS PO SCH (10:28)
[2023-08-03] MEDS: NICOTINE 14 MG/24 HOURS TOPICAL PATCH TD SCH (10:28)
[2023-08-03] MEDS: HYDROCHLOROTHIAZIDE 25 MG TABLET (FP) PO SCH (10:28)
[2023-08-03] MEDS: PRENATAL VITAMINS W/ FOLIC ACID TABLET (FP) PO SCH (10:28)
[2023-08-03] MEDS: LISINOPRIL 20 MG TABLET PO SCH (10:28)
[2023-08-03] MEDS: CLOTRIMAZOLE 1% 10 ML TOPICAL SOLUTION TP SCH ×2 (10:30→22:14)
[2023-08-03] MEDS: THIAMINE HCL 100 MG TABLET (FP) PO SCH (22:13)
[2023-08-03] MEDS: MELATONIN 5 MG TABLETS PO SCH (22:15)
[2023-08-04] MEDS: PRENATAL VITAMINS W/ FOLIC ACID TABLET (FP) PO SCH (10:03)
[2023-08-04] MEDS: ASPIRIN 81 MG CHEWABLE TABLETS PO SCH (10:03)
[2023-08-04] MEDS: NICOTINE 14 MG/24 HOURS TOPICAL PATCH TD SCH (10:04)
[2023-08-04] MEDS: LISINOPRIL 20 MG TABLET PO SCH (10:04)
[2023-08-04] MEDS: HYDROCHLOROTHIAZIDE 25 MG TABLET (FP) PO SCH (10:04)
[2023-08-04] MEDS: CLOTRIMAZOLE 1% 10 ML TOPICAL SOLUTION TP SCH ×2 (10:05→21:17)
[2023-08-04] MEDS: THIAMINE HCL 100 MG TABLET (FP) PO SCH (21:15)
[2023-08-04] MEDS: MELATONIN 5 MG TABLETS PO SCH (21:16)
[2023-08-05] MEDS: NICOTINE 14 MG/24 HOURS TOPICAL PATCH TD SCH (10:13)
[2023-08-05] MEDS: HYDROCHLOROTHIAZIDE 25 MG TABLET (FP) PO SCH (10:13)
[2023-08-05] MEDS: CLOTRIMAZOLE 1% 10 ML TOPICAL SOLUTION TP SCH ×2 (10:13→21:13)
[2023-08-05] MEDS: ASPIRIN 81 MG CHEWABLE TABLETS PO SCH (10:13)
[2023-08-05] MEDS: LISINOPRIL 20 MG TABLET PO SCH (10:15)
[2023-08-05] MEDS: PRENATAL VITAMINS W/ FOLIC ACID TABLET (FP) PO SCH (10:15)
[2023-08-05] MEDS: THIAMINE HCL 100 MG TABLET (FP) PO SCH (21:12)
[2023-08-05] MEDS: MELATONIN 5 MG TABLETS PO SCH (21:13)
[2023-08-06] MEDS: ASPIRIN 81 MG CHEWABLE TABLETS PO SCH (09:59)
[2023-08-06] MEDS: HYDROCHLOROTHIAZIDE 25 MG TABLET (FP) PO SCH (09:59)
[2023-08-06] MEDS: LISINOPRIL 20 MG TABLET PO SCH (09:59)
[2023-08-06] MEDS: NICOTINE 14 MG/24 HOURS TOPICAL PATCH TD SCH (10:00)
[2023-08-06] MEDS: PRENATAL VITAMINS W/ FOLIC ACID TABLET (FP) PO SCH (10:00)
[2023-08-06] MEDS: CLOTRIMAZOLE 1% 10 ML TOPICAL SOLUTION TP SCH ×2 (10:00→21:22)
[2023-08-06] MEDS: THIAMINE HCL 100 MG TABLET (FP) PO SCH (21:21)
[2023-08-06] MEDS: MELATONIN 5 MG TABLETS PO SCH (21:21)
[2023-08-07] MEDS: PRENATAL VITAMINS W/ FOLIC ACID TABLET (FP) PO SCH (09:45)
[2023-08-07] MEDS: LISINOPRIL 20 MG TABLET PO SCH (09:45)
[2023-08-07] MEDS: ASPIRIN 81 MG CHEWABLE TABLETS PO SCH (09:45)
[2023-08-07] MEDS: HYDROCHLOROTHIAZIDE 25 MG TABLET (FP) PO SCH (09:45)
[2023-08-07] MEDS: NICOTINE 14 MG/24 HOURS TOPICAL PATCH TD SCH (09:46)
[2023-08-07] MEDS: CLOTRIMAZOLE 1% 10 ML TOPICAL SOLUTION TP SCH ×2 (09:46→21:30)
[2023-08-07] MEDS: MELATONIN 5 MG TABLETS PO SCH (21:29)
[2023-08-07] MEDS: THIAMINE HCL 100 MG TABLET (FP) PO SCH (21:29)
[2023-08-08] MEDS: ASPIRIN 81 MG CHEWABLE TABLETS PO SCH (10:01)
[2023-08-08] MEDS: HYDROCHLOROTHIAZIDE 25 MG TABLET (FP) PO SCH (10:01)
[2023-08-08] MEDS: PRENATAL VITAMINS W/ FOLIC ACID TABLET (FP) PO SCH (10:01)
[2023-08-08] MEDS: LISINOPRIL 20 MG TABLET PO SCH (10:01)
[2023-08-08] MEDS: CLOTRIMAZOLE 1% 10 ML TOPICAL SOLUTION TP SCH ×2 (10:03→21:44)
[2023-08-08] MEDS: THIAMINE HCL 100 MG TABLET (FP) PO SCH (21:44)
[2023-08-08] MEDS: MELATONIN 5 MG TABLETS PO SCH (21:44)
[2023-08-09] MEDS: ASPIRIN 81 MG CHEWABLE TABLETS PO SCH (09:57)
[2023-08-09] MEDS: HYDROCHLOROTHIAZIDE 25 MG TABLET (FP) PO SCH (09:57)
[2023-08-09] MEDS: PRENATAL VITAMINS W/ FOLIC ACID TABLET (FP) PO SCH (09:57)
[2023-08-09] MEDS: LISINOPRIL 20 MG TABLET PO SCH (09:57)
[2023-08-09] MEDS: CLOTRIMAZOLE 1% 10 ML TOPICAL SOLUTION TP SCH ×2 (09:58→21:30)
[2023-08-09] MEDS: MELATONIN 5 MG TABLETS PO SCH (21:30)
[2023-08-09] MEDS: THIAMINE HCL 100 MG TABLET (FP) PO SCH (21:30)
[2023-08-10] MEDS: ASPIRIN 81 MG CHEWABLE TABLETS PO SCH (10:00)
[2023-08-10] MEDS: HYDROCHLOROTHIAZIDE 25 MG TABLET (FP) PO SCH (10:00)
[2023-08-10] MEDS: PRENATAL VITAMINS W/ FOLIC ACID TABLET (FP) PO SCH (10:00)
[2023-08-10] MEDS: LISINOPRIL 20 MG TABLET PO SCH (10:00)
[2023-08-10] MEDS: CLOTRIMAZOLE 1% 10 ML TOPICAL SOLUTION TP SCH ×2 (10:01→21:10)
[2023-08-10] MEDS: THIAMINE HCL 100 MG TABLET (FP) PO SCH (21:09)
[2023-08-10] MEDS: MELATONIN 5 MG TABLETS PO SCH (21:10)
[2023-08-11] MEDS: LISINOPRIL 20 MG TABLET PO SCH (09:56)
[2023-08-11] MEDS: HYDROCHLOROTHIAZIDE 25 MG TABLET (FP) PO SCH (09:56)
[2023-08-11] MEDS: PRENATAL VITAMINS W/ FOLIC ACID TABLET (FP) PO SCH (09:57)
[2023-08-11] MEDS: CLOTRIMAZOLE 1% 10 ML TOPICAL SOLUTION TP SCH ×2 (09:57→21:14)
[2023-08-11] MEDS: ASPIRIN 81 MG CHEWABLE TABLETS PO SCH (09:57)
[2023-08-11] MEDS: LIDOCAINE 4% PATCH TP SCH (14:34)
[2023-08-11] MEDS: THIAMINE HCL 100 MG TABLET (FP) PO SCH (21:14)
[2023-08-11] MEDS: LIDOCAINE PATCH REMOVAL MC SCH (21:27)
[2023-08-11] MEDS: MELATONIN 5 MG TABLETS PO SCH (21:27)
[2023-08-12] MEDS: PRENATAL VITAMINS W/ FOLIC ACID TABLET (FP) PO SCH (10:00)
[2023-08-12] MEDS: HYDROCHLOROTHIAZIDE 25 MG TABLET (FP) PO SCH (10:00)
[2023-08-12] MEDS: LISINOPRIL 20 MG TABLET PO SCH (10:00)
[2023-08-12] MEDS: ASPIRIN 81 MG CHEWABLE TABLETS PO SCH (10:00)
[2023-08-12] MEDS: LIDOCAINE 4% PATCH TP SCH (10:00)
[2023-08-12] MEDS: CLOTRIMAZOLE 1% 10 ML TOPICAL SOLUTION TP SCH ×2 (10:02→21:32)
[2023-08-12] MEDS: LIDOCAINE PATCH REMOVAL MC SCH (21:32)
[2023-08-12] MEDS: MELATONIN 5 MG TABLETS PO SCH (21:32)
[2023-08-12] MEDS: THIAMINE HCL 100 MG TABLET (FP) PO SCH (21:32)
[2023-08-13] MEDS: BENZOCAINE/MENTHOL (CHLORASEPTIC ) LOZENGE MM PRN ×5 (05:34→21:34)
[2023-08-13] MEDS: LIDOCAINE 4% PATCH TP SCH (10:04)
[2023-08-13] MEDS: PRENATAL VITAMINS W/ FOLIC ACID TABLET (FP) PO SCH (10:04)
[2023-08-13] MEDS: CLOTRIMAZOLE 1% 10 ML TOPICAL SOLUTION TP SCH ×2 (10:05→21:34)
[2023-08-13] MEDS: LISINOPRIL 20 MG TABLET PO SCH (10:05)
[2023-08-13] MEDS: HYDROCHLOROTHIAZIDE 25 MG TABLET (FP) PO SCH (10:05)
[2023-08-13] MEDS: ASPIRIN 81 MG CHEWABLE TABLETS PO SCH (10:05)
[2023-08-13] MEDS: LIDOCAINE PATCH REMOVAL MC SCH (21:33)
[2023-08-13] MEDS: THIAMINE HCL 100 MG TABLET (FP) PO SCH (21:33)
[2023-08-13] MEDS: MELATONIN 5 MG TABLETS PO SCH (21:34)
[2023-08-14] MEDS: PRENATAL VITAMINS W/ FOLIC ACID TABLET (FP) PO SCH (10:00)
[2023-08-14] MEDS: LIDOCAINE 4% PATCH TP SCH (10:00)
[2023-08-14] MEDS: HYDROCHLOROTHIAZIDE 25 MG TABLET (FP) PO SCH (10:00)
[2023-08-14] MEDS: LISINOPRIL 20 MG TABLET PO SCH (10:00)
[2023-08-14] MEDS: ASPIRIN 81 MG CHEWABLE TABLETS PO SCH (10:00)
[2023-08-14] MEDS: CLOTRIMAZOLE 1% 10 ML TOPICAL SOLUTION TP SCH ×2 (10:01→21:25)
[2023-08-14] MEDS: BENZOCAINE/MENTHOL (CHLORASEPTIC ) LOZENGE MM PRN (18:59)
[2023-08-14] MEDS: THIAMINE HCL 100 MG TABLET (FP) PO SCH (21:25)
[2023-08-14] MEDS: MELATONIN 5 MG TABLETS PO SCH (21:26)
[2023-08-14] MEDS: LIDOCAINE PATCH REMOVAL MC SCH (21:26)
[2023-08-15] MEDS: BENZOCAINE/MENTHOL (CHLORASEPTIC ) LOZENGE MM PRN ×2 (07:09→21:16)
[2023-08-15] MEDS: LISINOPRIL 20 MG TABLET PO SCH (09:50)
[2023-08-15] MEDS: HYDROCHLOROTHIAZIDE 25 MG TABLET (FP) PO SCH (09:50)
[2023-08-15] MEDS: ASPIRIN 81 MG CHEWABLE TABLETS PO SCH (09:50)
[2023-08-15] MEDS: LIDOCAINE 4% PATCH TP SCH (09:51)
[2023-08-15] MEDS: CLOTRIMAZOLE 1% 10 ML TOPICAL SOLUTION TP SCH ×2 (09:51→21:15)
[2023-08-15] MEDS: PRENATAL VITAMINS W/ FOLIC ACID TABLET (FP) PO SCH (09:51)
[2023-08-15] MEDS: THIAMINE HCL 100 MG TABLET (FP) PO SCH (21:15)
[2023-08-15] MEDS: MELATONIN 5 MG TABLETS PO SCH (21:15)
[2023-08-15] MEDS: LIDOCAINE PATCH REMOVAL MC SCH (21:15)
[2023-08-16] MEDS: BENZOCAINE/MENTHOL (CHLORASEPTIC ) LOZENGE MM PRN ×3 (05:54→20:12)
[2023-08-16] MEDS: ASPIRIN 81 MG CHEWABLE TABLETS PO SCH (09:56)
[2023-08-16] MEDS: HYDROCHLOROTHIAZIDE 25 MG TABLET (FP) PO SCH (09:56)
[2023-08-16] MEDS: PRENATAL VITAMINS W/ FOLIC ACID TABLET (FP) PO SCH (09:56)
[2023-08-16] MEDS: LISINOPRIL 20 MG TABLET PO SCH (09:56)
[2023-08-16] MEDS: CLOTRIMAZOLE 1% 10 ML TOPICAL SOLUTION TP SCH ×2 (09:57→21:22)
[2023-08-16] MEDS: LIDOCAINE 4% PATCH TP SCH (09:57)
[2023-08-16] MEDS: THIAMINE HCL 100 MG TABLET (FP) PO SCH (21:21)
[2023-08-16] MEDS: MELATONIN 5 MG TABLETS PO SCH (21:42)
[2023-08-16] MEDS: LIDOCAINE PATCH REMOVAL MC SCH (21:42)
[2023-08-17] MEDS: LIDOCAINE 4% PATCH TP SCH (09:45)
[2023-08-17] MEDS: PRENATAL VITAMINS W/ FOLIC ACID TABLET (FP) PO SCH (09:45)
[2023-08-17] MEDS: HYDROCHLOROTHIAZIDE 25 MG TABLET (FP) PO SCH (09:46)
[2023-08-17] MEDS: CLOTRIMAZOLE 1% 10 ML TOPICAL SOLUTION TP SCH ×2 (09:46→21:16)
[2023-08-17] MEDS: ASPIRIN 81 MG CHEWABLE TABLETS PO SCH (09:46)
[2023-08-17] MEDS: LISINOPRIL 20 MG TABLET PO SCH (09:46)
[2023-08-17] MEDS: THIAMINE HCL 100 MG TABLET (FP) PO SCH (21:15)
[2023-08-17] MEDS: MELATONIN 5 MG TABLETS PO SCH (21:16)
[2023-08-17] MEDS: LIDOCAINE PATCH REMOVAL MC SCH (22:07)
[2023-08-17] MEDS: BENZOCAINE/MENTHOL (CHLORASEPTIC ) LOZENGE MM PRN (23:10)
[2023-08-18] MEDS: BENZOCAINE/MENTHOL (CHLORASEPTIC ) LOZENGE MM PRN ×2 (05:57→18:58)
[2023-08-18] MEDS: LIDOCAINE 4% PATCH TP SCH (09:50)
[2023-08-18] MEDS: ASPIRIN 81 MG CHEWABLE TABLETS PO SCH (09:50)
[2023-08-18] MEDS: PRENATAL VITAMINS W/ FOLIC ACID TABLET (FP) PO SCH (09:50)
[2023-08-18] MEDS: LISINOPRIL 20 MG TABLET PO SCH (09:50)
[2023-08-18] MEDS: HYDROCHLOROTHIAZIDE 25 MG TABLET (FP) PO SCH (09:50)
[2023-08-18] MEDS: CLOTRIMAZOLE 1% 10 ML TOPICAL SOLUTION TP SCH ×2 (09:51→21:22)
[2023-08-18] MEDS: MELATONIN 5 MG TABLETS PO SCH (21:22)
[2023-08-18] MEDS: THIAMINE HCL 100 MG TABLET (FP) PO SCH (21:22)
[2023-08-18] MEDS: LIDOCAINE PATCH REMOVAL MC SCH (21:22)
[2023-08-18] MEDS: P-EPHED 60MG/TRIPROLIDI 2.5MG TABLET PO PRN (23:11)
[2023-08-19] MEDS: BENZOCAINE/MENTHOL (CHLORASEPTIC ) LOZENGE MM PRN ×2 (06:56→19:46)
[2023-08-19] MEDS: P-EPHED 60MG/TRIPROLIDI 2.5MG TABLET PO PRN ×2 (06:58→19:45)
[2023-08-19] MEDS: LIDOCAINE 4% PATCH TP SCH (09:49)
[2023-08-19] MEDS: HYDROCHLOROTHIAZIDE 25 MG TABLET (FP) PO SCH (09:49)
[2023-08-19] MEDS: ASPIRIN 81 MG CHEWABLE TABLETS PO SCH (09:49)
[2023-08-19] MEDS: CLOTRIMAZOLE 1% 10 ML TOPICAL SOLUTION TP SCH ×2 (09:50→21:14)
[2023-08-19] MEDS: LISINOPRIL 20 MG TABLET PO SCH (09:50)
[2023-08-19] MEDS: PRENATAL VITAMINS W/ FOLIC ACID TABLET (FP) PO SCH (09:50)
[2023-08-19] MEDS: LIDOCAINE PATCH REMOVAL MC SCH (21:14)
[2023-08-19] MEDS: THIAMINE HCL 100 MG TABLET (FP) PO SCH (21:15)
[2023-08-19] MEDS: MELATONIN 5 MG TABLETS PO SCH (21:15)
[2023-08-20] MEDS: BENZOCAINE/MENTHOL (CHLORASEPTIC ) LOZENGE MM PRN ×2 (00:51→21:12)
[2023-08-20] MEDS: P-EPHED 60MG/TRIPROLIDI 2.5MG TABLET PO PRN ×2 (00:51→09:52)
[2023-08-20] MEDS: PRENATAL VITAMINS W/ FOLIC ACID TABLET (FP) PO SCH (09:48)
[2023-08-20] MEDS: ASPIRIN 81 MG CHEWABLE TABLETS PO SCH (09:49)
[2023-08-20] MEDS: LIDOCAINE 4% PATCH TP SCH (09:49)
[2023-08-20] MEDS: LISINOPRIL 20 MG TABLET PO SCH (09:49)
[2023-08-20] MEDS: HYDROCHLOROTHIAZIDE 25 MG TABLET (FP) PO SCH (09:49)
[2023-08-20] MEDS: CLOTRIMAZOLE 1% 10 ML TOPICAL SOLUTION TP SCH ×2 (09:50→21:12)
[2023-08-20] MEDS: THIAMINE HCL 100 MG TABLET (FP) PO SCH (21:12)
[2023-08-20] MEDS: LIDOCAINE PATCH REMOVAL MC SCH (21:12)
[2023-08-20] MEDS: MELATONIN 5 MG TABLETS PO SCH (21:12)
[2023-08-21] MEDS: ASPIRIN 81 MG CHEWABLE TABLETS PO SCH (09:31)
[2023-08-21] MEDS: HYDROCHLOROTHIAZIDE 25 MG TABLET (FP) PO SCH (09:32)
[2023-08-21] MEDS: LIDOCAINE 4% PATCH TP SCH (09:32)
[2023-08-21] MEDS: LISINOPRIL 20 MG TABLET PO SCH (09:32)
[2023-08-21] MEDS: P-EPHED 60MG/TRIPROLIDI 2.5MG TABLET PO PRN ×2 (09:34→21:35)
[2023-08-21] MEDS: CLOTRIMAZOLE 1% 10 ML TOPICAL SOLUTION TP SCH ×2 (09:34→21:33)
[2023-08-21] MEDS: BENZOCAINE/MENTHOL (CHLORASEPTIC ) LOZENGE MM PRN ×2 (09:35→21:35)
[2023-08-21] MEDS: PRENATAL VITAMINS W/ FOLIC ACID TABLET (FP) PO SCH (09:35)
[2023-08-21] MEDS: LIDOCAINE PATCH REMOVAL MC SCH (21:33)
[2023-08-21] MEDS: THIAMINE HCL 100 MG TABLET (FP) PO SCH (21:33)
[2023-08-21] MEDS: MELATONIN 5 MG TABLETS PO SCH ×2 (21:33→21:45)
[2023-08-21 22:30] VITALS: RESP 18
[2023-08-22] MEDS: BENZOCAINE/MENTHOL (CHLORASEPTIC ) LOZENGE MM PRN ×2 (05:55→21:16)
[2023-08-22] MEDS: LIDOCAINE 4% PATCH TP SCH (09:49)
[2023-08-22] MEDS: ASPIRIN 81 MG CHEWABLE TABLETS PO SCH (09:49)
[2023-08-22] MEDS: HYDROCHLOROTHIAZIDE 25 MG TABLET (FP) PO SCH (09:49)
[2023-08-22] MEDS: PRENATAL VITAMINS W/ FOLIC ACID TABLET (FP) PO SCH (09:49)
[2023-08-22] MEDS: LISINOPRIL 20 MG TABLET PO SCH (09:50)
[2023-08-22] MEDS: CLOTRIMAZOLE 1% 10 ML TOPICAL SOLUTION TP SCH ×2 (09:50→21:18)
[2023-08-22] MEDS: THIAMINE HCL 100 MG TABLET (FP) PO SCH (21:15)
[2023-08-22] MEDS: MELATONIN 5 MG TABLETS PO SCH (21:35)
[2023-08-22] MEDS: LIDOCAINE PATCH REMOVAL MC SCH (21:36)
[2023-08-22] MEDS: P-EPHED 60MG/TRIPROLIDI 2.5MG TABLET PO PRN (23:05)
[2023-08-23] MEDS: PRENATAL VITAMINS W/ FOLIC ACID TABLET (FP) PO SCH (09:56)
[2023-08-23] MEDS: LISINOPRIL 20 MG TABLET PO SCH (09:56)
[2023-08-23] MEDS: LIDOCAINE 4% PATCH TP SCH (09:56)
[2023-08-23] MEDS: HYDROCHLOROTHIAZIDE 25 MG TABLET (FP) PO SCH (09:56)
[2023-08-23] MEDS: CLOTRIMAZOLE 1% 10 ML TOPICAL SOLUTION TP SCH ×2 (09:57→21:07)
[2023-08-23] MEDS: ASPIRIN 81 MG CHEWABLE TABLETS PO SCH (09:57)
[2023-08-23] MEDS: THIAMINE HCL 100 MG TABLET (FP) PO SCH (21:05)
[2023-08-23] MEDS: P-EPHED 60MG/TRIPROLIDI 2.5MG TABLET PO PRN (21:06)
[2023-08-23] MEDS: MELATONIN 5 MG TABLETS PO SCH (21:08)
[2023-08-23] MEDS: LIDOCAINE PATCH REMOVAL MC SCH (21:08)
[2023-08-24] MEDS: PRENATAL VITAMINS W/ FOLIC ACID TABLET (FP) PO SCH (10:02)
[2023-08-24] MEDS: LISINOPRIL 20 MG TABLET PO SCH (10:03)
[2023-08-24] MEDS: HYDROCHLOROTHIAZIDE 25 MG TABLET (FP) PO SCH (10:03)
[2023-08-24] MEDS: ASPIRIN 81 MG CHEWABLE TABLETS PO SCH (10:03)
[2023-08-24] MEDS: LIDOCAINE 4% PATCH TP SCH (10:03)
[2023-08-24] MEDS: CLOTRIMAZOLE 1% 10 ML TOPICAL SOLUTION TP SCH ×2 (10:04→21:25)
[2023-08-24] MEDS: P-EPHED 60MG/TRIPROLIDI 2.5MG TABLET PO PRN ×2 (10:05→21:24)
[2023-08-24] MEDS: BENZOCAINE/MENTHOL (CHLORASEPTIC ) LOZENGE MM PRN (10:06)
[2023-08-24] MEDS: THIAMINE HCL 100 MG TABLET (FP) PO SCH (21:24)
[2023-08-24] MEDS: MELATONIN 5 MG TABLETS PO SCH (21:47)
[2023-08-24] MEDS: LIDOCAINE PATCH REMOVAL MC SCH (21:47)
[2023-08-25 07:13] VITALS: TEMP 97.5
[2023-08-25] MEDS: HYDROCHLOROTHIAZIDE 25 MG TABLET (FP) PO SCH (09:05)
[2023-08-25] MEDS: ASPIRIN 81 MG CHEWABLE TABLETS PO SCH (09:05)
[2023-08-25] MEDS: LISINOPRIL 20 MG TABLET PO SCH (09:05)
[2023-08-25] MEDS: PRENATAL VITAMINS W/ FOLIC ACID TABLET (FP) PO SCH (09:05)
[2023-08-25] MEDS: LIDOCAINE 4% PATCH TP SCH (09:06)
[2023-08-25] MEDS: CLOTRIMAZOLE 1% 10 ML TOPICAL SOLUTION TP SCH (09:07)
[2023-08-25 10:42] VITALS: BP 124/82; PULSE 81
== END 2023-08-25 10:22 | disposition home or self-care (01) | DRG 895 ==
LOC: YASAS 16:12 → Y5N 19:52
PROVIDERS: ADMIT Allergy & Immunology; ATTEND Psychiatry & Neurology Pain Medicine
PROC: HZ42ZZZ Group Counseling for Substance Abuse Treatment, Cognitive-Behavioral (ICD-10-PCS; principal; 2023-07-28)
DX: F10.20 Alcohol dependence, uncomplicated (principal); F14.20 Cocaine dependence, uncomplicated; F12.20 Cannabis dependence, uncomplicated; F19.24 Other psychoactive substance dependence with psychoactive substance-induced mood disorder; F25.9 Schizoaffective disorder, unspecified; F41.9 Anxiety disorder, unspecified; F43.10 Post-traumatic stress disorder, unspecified; F32.A Depression, unspecified; I25.10 Atherosclerotic heart disease of native coronary artery without angina pectoris; I10 Essential (primary) hypertension; M25.552 Pain in left hip; G89.29 Other chronic pain; R09.81 Nasal congestion; Z86.79 Personal history of other diseases of the circulatory system; Z86.11 Personal history of tuberculosis; Z87.891 Personal history of nicotine dependence
CPT/HCPCS: 0241U-QW; 36415; 73030-TC-LT-FY; 80053; 80307; 81003; 82962; 85027; 86780; 86803; 87635; 87807; 87811